=== PATIENT | female | born 1985 | race Caucasian/White ===

== ENCOUNTER → 2021-01-03 02:17 | Outpatient (CLI) | payer BC, MEDICAID, SELFPAY ==
[2021-01-03 19:12] LABS: SARS-CoV-2 RNA PCR Negative
== END ==
PROVIDERS: PCP Nurse Practitioner Family; Visit Provider Internal Medicine Gastroenterology
DX: Z01.812 Encounter for preprocedural laboratory examination (principal); Z20.822 Contact with and (suspected) exposure to COVID-19
CPT/HCPCS: C9803; U0003; U0005

== ENCOUNTER 2021-01-06 02:16 | Day surgery (SDC) | payer BC, MEDICAID, SELFPAY ==
[2020-12-25 14:07] VITALS: BMI 68.8
[2021-01-06 12:26] VITALS: BP 140/74; PULSE 97; RESP 26; TEMP 36.6; O2SAT 98; BMI 70.5
[2021-01-06 12:26] LABS: Glucose Point of Care 114 (65-105)
--- NOTE | 2021-01-06 12:31 | WPDANESEPPF ---
Anes - Initial Pre Proc Eval Procedure: Operation Date: 01/06/21 13:30 Proposed Procedures p Esophagogastroduodenoscopy & Colonoscopy - Devan Roman MD Date/Time: 01/06/21 12:31 Surgeon: Devan Roman MD Pre Op Diagnosis: abd pain, diarrhea, melena Patient Data Age: 35 Gender: F Height: 5 ft 4 in Weight: 186.5 kg Last Vital Signs Temp 36.6 C 01/06/21 12:26 Pulse 97 01/06/21 12:26 Resp 26 H 01/06/21 12:26 BP 140/74 01/06/21 12:26 Pulse Ox 98 01/06/21 12:26 Allergies Allergy/AdvReac Type Severity Reaction Status Date / Time metformin Allergy Mild Diarrhea Verified 01/06/21 12:22 venom-wasp Allergy Mild unknown Verified 01/06/21 12:22 terbutaline Allergy Unknown Hyperactive Verified 01/06/21 12:22 haloperidol [From Haldol] Allergy Difficulty Verified 01/06/21 12:22 Breathing Home Medications Medication Instructions Recorded Confirmed Type albuterol sulfate 90 mcg/actuation 1 inh INHALATION Q4H PRN 10/29/20 12/25/20 History aerosol inhaler blood sugar diagnostic #10 ea 10/29/20 12/25/20 History dicyclomine 20 mg tablet 20 mg PO BID 10/29/20 12/25/20 History glimepiride 4 mg tablet 4 mg PO BID 10/29/20 12/25/20 History hydrochlorothiazide 25 mg tablet 25 mg PO DAILY 10/29/20 12/25/20 History ibuprofen 200 mg capsule 600 mg PO Q6H PRN 10/29/20 12/25/20 History lidocaine HCl 4 % topical cream 1 applic TOPICAL BID 10/29/20 12/25/20 History pantoprazole 40 mg tablet,delayed 40 mg PO QAM 10/29/20 12/25/20 History release baclofen 10 mg tablet 10 mg PO TID tablet 11/08/20 12/25/20 History losartan 50 mg tablet 50 mg PO BID 11/08/20 12/25/20 History liraglutide 1.2 mg SUBCUT DAILY 12/25/20 12/25/20 History Laboratory Tests 01/06/21 12:24 POC Capillary Glucose 114 mg/dl H mg/dl (65-105) Patient hx anesthesia problems: none Family hx anesthesia problems: none PMFSH Past Medical History Medical History Anemia Anxiety Asthma Blood clot in vein Blood in stool Diabetes 1.5, managed as type 2 Diarrhea Gallbladder & bile duct stone with obstruction Gallstones GERD (gastroesophageal reflux disease) High blood pressure Infection of caesarean section or perineal wound Morbid obesity Nausea Rectal pain Tobacco abuse Social History Social History Smoking packs per day: 1.5 Smoking cigarettes per day: 30.0 Years smoked: 5 Smoking pack-years: 7.50 Smoking status: Current every day smoker Tobacco type: cigarettes Alcohol intake: never Substance use: never Substance use type: does not use Living arrangements: with family Gender identity (if verbalized by the patient): Female Spiritual care concerns: No Anes - Eval Final PreProcedure Day of Procedure 01/06/21 12:31 Patient weight: super morbidly obese Heart: regular rate and rhythm Lungs: decreased breath sounds Airway: Mallampati scale class II Neurological: alert and oriented Last oral intake: >/= 8 hours ASA classification: IV Emergent: no Anesthetic plan: proceed Anesthesia type and monitoring: general GIVS and standard monitoring Informed Consent: The patient's anesthetic plan and its attendant risks and benefits were discussed with the patient/family/POA. Questions were solicited and answers provided to the satisfaction of the patient/family/POA.
[2021-01-06] MEDS: LACTATED RINGERS 1,000 ML 150 ML IV CONT (12:42)
--- NOTE | 2021-01-06 12:43 | PM.HPGS ---
History of Present Illness History of Present Illness Consent: Risks, benefits, and alternatives have been discussed and questions answered. Patient agrees to proceed with procedure. Chief complaint: abd pain, diarrhea, melena Narrative: Gwen Lawson is a 35 year old female morbidly obese, DM with rectal pain, nausea and also loose stool. Review of Systems Constitutional: Constitutional: Denies headache(s) and Denies weakness Eyes: Eyes: Denies blurry vision ENT: Reports Normal hearing present, Denies headache(s) and Denies neck pain Cardiovascular: Cardiovascular: Denies chest pain and Denies dyspnea Respiratory: Respiratory: Denies dyspnea Gastrointestinal: Gastrointestinal: Reports no additional gastrointestinal complaints Genitourinary: Genitourinary: Denies dysuria Musculoskeletal: Musculoskeletal: Denies neck pain Integumentary/Breasts: Skin/Breast: Denies dry skin Neurologic: Reports Normal hearing present, Denies headache(s) and Denies weakness Psychiatric: Psychiatric: Denies anxiety Endocrine: Endocrine: Denies change in body appearance Hematologic/Lymphatic: Hematologic/Lymphatic: Denies easy bleeding Allergic/Immunologic: Allergic/Immunologic: Denies urticaria PMFSH Past Medical History Medical History Anemia Anxiety Asthma Blood clot in vein Blood in stool Diabetes 1.5, managed as type 2 Diarrhea Gallbladder & bile duct stone with obstruction Gallstones GERD (gastroesophageal reflux disease) High blood pressure Infection of caesarean section or perineal wound Morbid obesity Nausea Rectal pain Tobacco abuse Social History Social History Smoking packs per day: 1.5 Smoking cigarettes per day: 30.0 Years smoked: 5 Smoking pack-years: 7.50 Smoking status: Current every day smoker Tobacco type: cigarettes Alcohol intake: never Substance use: never Substance use type: does not use Living arrangements: with family Gender identity (if verbalized by the patient): Female Spiritual care concerns: No Meds Home Medications and Allergies Home Medications Medication Instructions Recorded Confirmed Type albuterol sulfate 90 mcg/actuation 1 inh INHALATION Q4H PRN 10/29/20 12/25/20 History aerosol inhaler blood sugar diagnostic #10 ea 10/29/20 12/25/20 History dicyclomine 20 mg tablet 20 mg PO BID 10/29/20 12/25/20 History glimepiride 4 mg tablet 4 mg PO BID 10/29/20 12/25/20 History hydrochlorothiazide 25 mg tablet 25 mg PO DAILY 10/29/20 12/25/20 History ibuprofen 200 mg capsule 600 mg PO Q6H PRN 10/29/20 12/25/20 History lidocaine HCl 4 % topical cream 1 applic TOPICAL BID 10/29/20 12/25/20 History pantoprazole 40 mg tablet,delayed 40 mg PO QAM 10/29/20 12/25/20 History release baclofen 10 mg tablet 10 mg PO TID tablet 11/08/20 12/25/20 History losartan 50 mg tablet 50 mg PO BID 11/08/20 12/25/20 History liraglutide 1.2 mg SUBCUT DAILY 12/25/20 12/25/20 History Allergies Allergy/AdvReac Type Severity Reaction Status Date / Time metformin Allergy Mild Diarrhea Verified 01/06/21 12:22 venom-wasp Allergy Mild unknown Verified 01/06/21 12:22 terbutaline Allergy Unknown Hyperactive Verified 01/06/21 12:22 haloperidol [From Haldol] Allergy Difficulty Verified 01/06/21 12:22 Breathing Vital Signs Vital Signs - 24 hr 01/06/21 12:26 Temperature 97.9 F Pulse Rate 97 Respiratory Rate 26 H Blood Pressure 140/74 Pulse Oximetry 98 Exam Const: General: comfortable and no acute distress Nutritional Appearance: obese HENMT: General nose exam: Normal nares present Eyes: General: appearance normal, both eyes and all related structures Neck: Neck: no JVD Resp: Auscultation: clear to auscultation bilaterally Cardio: Rate: regular rate Rhythm: regular rhythm GI: Inspection: non-distended GI Palp: Yes Soft to palpation
[2021-01-06 13:18] VITALS: BP 111/53; PULSE 90; RESP 22; O2SAT 96
[2021-01-06 13:28] VITALS: BP 131/89; PULSE 89; RESP 18; O2SAT 99
[2021-01-06 13:38] VITALS: BP 145/90; PULSE 87; RESP 18; O2SAT 100
[2021-01-06 13:44] LABS: Glucose Point of Care 94 (65-105)
[2021-01-06 13:48] VITALS: BP 134/84; PULSE 88; RESP 17; O2SAT 98
--- NOTE | 2021-01-06 14:08 | SUR.PHASEII ---
Pt complains of rectal pain. New order recieved from Dr. Up for a suppository. Pt refused suppository states she has tried this several times with no relief. Pt believed she was going to have treatment for the hemmorhoids during the colonoscopy. Dr. Up in to speak to the pt at this time.
--- NOTE | 2021-01-06 14:20 | SUR.PHASEII ---
No new orders recieved from Dr. Up. Dr. Up states he will set up hemmorhoid treatment for the pt.
--- NOTE | 2021-01-06 14:52 | SUR.PHASEII ---
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
== END 2021-01-06 14:51 | disposition home or self-care (01) ==
PROVIDERS: PCP Nurse Practitioner Family; Visit Provider Internal Medicine Gastroenterology
PROC: 0DJ08ZZ Inspection of Upper Intestinal Tract, Via Natural or Artificial Opening Endoscopic (ICD-10-PCS; CPT 43235; principal; 2021-01-06 13:30)
DX: R19.7 Diarrhea, unspecified (principal); K62.89 Other specified diseases of anus and rectum; K64.8 Other hemorrhoids; K29.50 Unspecified chronic gastritis without bleeding; K52.89 Other specified noninfective gastroenteritis and colitis; R11.0 Nausea; Z79.51 Long term (current) use of inhaled steroids; D64.9 Anemia, unspecified; F41.8 Other specified anxiety disorders; J45.909 Unspecified asthma, uncomplicated; F17.210 Nicotine dependence, cigarettes, uncomplicated; E66.01 Morbid (severe) obesity due to excess calories; Z68.45 Body mass index [BMI] 70 or greater, adult; R03.0 Elevated blood-pressure reading, without diagnosis of hypertension; E13.8 Other specified diabetes mellitus with unspecified complications; Z87.19 Personal history of other diseases of the digestive system
CPT/HCPCS: 45380; 43239; 82948; 88305; J2001; J2704; J7120

== ENCOUNTER 2021-02-04 00:28 | Day surgery (SDC) | payer BC, MEDICAID, SELFPAY ==
[2021-01-31 11:14] VITALS: BMI 68.8
[2021-02-04 11:10] VITALS: BP 150/61; PULSE 86; RESP 23; TEMP 36.7; O2SAT 98; BMI 72.2
--- NOTE | 2021-02-04 11:38 | PM.PROC ---
Procedure Note - Detailed Date of procedure: 02/04/21 Pre-op diagnosis: hemorrhoids Post-op diagnosis: same Procedure performed: infrared coagulation (IRC) Description of procedure: after she signed consent and time-out, patient was placed in left lateral position, then I performed rectal exam- no fissures, no lesions, no bleeding. Then introduced anoscope, noted grade II internal hemorroids, then applied IRC probe 1.5 seconds each time x4. Patient tolerated procedure Anesthesia: none Surgeon: Devan Roman MD Findings: - patient says that insurance did not approve hydrocortisone supp or budesonide (had colonoscopy with random colon bx that showed possible colitis), she also says that tried questran and did not work
[2021-02-04 11:40] VITALS: BP 162/68; PULSE 96; RESP 26; O2SAT 99
--- NOTE | 2021-02-04 12:20 | WPDHPUPDATE1 ---
History and Physical Update Update Date/Time: 02/04/21 12:20 History and Physical has been reviewed, including an updated exam of the patient. There are NO changes in the patient's condition. Risks, benefits, and alternatives have been discussed and questions answered. Patient agrees to proceed with procedure.
== END 2021-02-04 11:41 | disposition home or self-care (01) ==
PROVIDERS: PCP Nurse Practitioner Family; Visit Provider Internal Medicine Gastroenterology
PROC: (CPT 46930; principal; 2021-02-04 11:30)
DX: K64.1 Second degree hemorrhoids (principal); J45.909 Unspecified asthma, uncomplicated; E13.9 Other specified diabetes mellitus without complications; K21.9 Gastro-esophageal reflux disease without esophagitis; I10 Essential (primary) hypertension; E66.01 Morbid (severe) obesity due to excess calories; Z68.45 Body mass index [BMI] 70 or greater, adult
CPT/HCPCS: 46930; J7120

== ENCOUNTER 2023-10-11 17:03 | Emergency (ER) | payer OTHER, SELFPAY ==
--- NOTE | 2023-10-11 17:15 | ED.URI ---
HPI - URI/Sore Throat General Chief Complaint: Upper Respiratory Infection Stated Complaint: nausea/dizzy/fatigue Source: patient, RN notes reviewed and old records reviewed Mode of arrival: ambulatory Limitations: no limitations History of Present Illness HPI Narrative: 38-year-old female patient [facility] complaint Nausea, vomiting and dizziness for 1 week. patient states is taking Zofran 3 times a day with no relief. Patient states he has vomited 4 times daily for 1 week. Patient also states has been on antibiotic for a foot infection for 18 days. Patient is diabetic. Discussed limitations of urgent care with patient, patient states she does not want to go to the emergency room that she wants know if she has flu or COVID. Related Data Home Medications Medication Instructions Recorded Confirmed albuterol sulfate 90 mcg/actuation 1 inh inhalation Q4H PRN Shortness 10/29/20 08/14/21 aerosol inhaler (Ventolin HFA) Of Breath blood sugar diagnostic (Blood #10 ea 10/29/20 08/14/21 Glucose Test strips) dicyclomine 20 mg tablet 20 mg PO BID 10/29/20 08/14/21 glimepiride 4 mg tablet 4 mg PO BID 10/29/20 08/14/21 hydrochlorothiazide 25 mg tablet 25 mg PO DAILY 10/29/20 08/14/21 baclofen 10 mg tablet 10 mg PO TID 11/08/20 08/14/21 atenolol 25 mg tablet mg 10/11/23 atorvastatin 10 mg tablet mg 10/11/23 buspirone 7.5 mg tablet mg 10/11/23 cephalexin 500 mg capsule mg 10/11/23 cholestyramine (with sugar) 4 gram ea 10/11/23 powder for susp in a packet dulaglutide 0.75 mg/0.5 mL mg subcut 10/11/23 [facility] escitalopram oxalate 5 mg tablet mg 10/11/23 famotidine 40 mg tablet mg 10/11/23 hydrocortisone 2.5 % topical cream 10/11/23 with perineal applicator insulin glargine 100 unit/mL (3 unit subcut 10/11/23 mL) subcutaneous pen (Lantus Solostar U-100 Insulin) insulin lispro 100 unit/mL subcut 10/11/23 subcutaneous pen (Humalog KwikPen (U-100) Insulin) losartan 50 mg tablet mg 10/11/23 ondansetron HCl 8 mg tablet mg 10/11/23 sennosides 8.6 mg-docusate sodium PO 10/11/23 50 mg tablet (Senexon-S) trazodone 150 mg tablet mg 10/11/23 varenicline 1 mg tablet mg 10/11/23 Allergies Allergy/AdvReac Type Severity Reaction Status Date / Time metformin Allergy Mild Diarrhea Verified 11/25/21 12:38 venom-wasp Allergy Mild unknown Verified 11/25/21 12:38 terbutaline Allergy Unknown Hyperactive Verified 11/25/21 12:38 haloperidol [From Haldol] Allergy Difficulty Verified 11/25/21 12:38 Breathing Review of Systems Constitutional: Constitutional: Reports no additional constitutional complaints, Denies body ache(s), Denies chills, Denies fatigue, Denies fever(s) and Denies headache(s) Eyes: Eyes: Reports no additional eye complaints and Denies blurry vision ENT: Reports system reviewed and no additional complaints, except as documented, Denies vertigo, Reports dizziness, Denies ear discharge, Denies otalgia, Denies facial pain, Denies headache(s), Denies nasal congestion, Denies nasal discharge, Denies sinus pain, Denies sinus pressure and Denies sore throat Cardiovascular: Cardiovascular: Reports no additional cardiovascular complaints, Denies chest pain, Denies chest pain at rest, Denies rapid heart rate and Denies dyspnea Respiratory: Respiratory: Reports no additional respiratory complaints, Denies chest congestion, Denies cough, Denies pain on inspiration, Denies pain with cough and Denies dyspnea Gastrointestinal: Gastrointestinal: Denies abdominal pain, Denies diarrhea, Reports nausea and Reports vomiting Integumentary/Breasts: Skin/Breast: Denies rash Neurologic: Reports system reviewed and no additional complaints, except as documented, Denies vertigo, Denies dizziness and Denies headache(s) Endocrine: Endocrine: Denies fatigue PMFSH Past Medical History Medical History Anemia A
[2023-10-11 17:18] VITALS: BP 141/76; PULSE 77; RESP 16; TEMP 36.3; O2SAT 100
[2023-10-11 17:36] LABS: Glucose Point of Care 201 mg/dl (65-105)
== END 2023-10-11 17:57 | disposition home or self-care (01) ==
PROVIDERS: Emergency Provider Registered Nurse; PCP Nurse Practitioner Family
DX: R42 Dizziness and giddiness (principal); R11.2 Nausea with vomiting, unspecified; Z20.822 Contact with and (suspected) exposure to COVID-19; F17.210 Nicotine dependence, cigarettes, uncomplicated; J45.909 Unspecified asthma, uncomplicated; E13.8 Other specified diabetes mellitus with unspecified complications; K21.9 Gastro-esophageal reflux disease without esophagitis; E66.01 Morbid (severe) obesity due to excess calories
CPT/HCPCS: 82948; 87426; 87804; 99213; G0463

== ENCOUNTER 2024-01-06 08:22 | Emergency (ER) | payer OTHER, SELFPAY ==
--- NOTE | ~2024-01-06 | XR_ITS ---
EXAMINATION: XR chest 2V 01/06/2024 09:04 INDICATION: Severe chest pain PROCEDURE: 2 view chest COMPARISON: 06/26/2015 FINDINGS: The lungs are clear. Mild cardiomegaly.. There are no pleural effusions. There is no pneu mothorax suspected. IMPRESSION: 1: NO ACUTE CARDIOPULMONARY DISEASE. Reviewed, dictated and finalized at location B.
--- NOTE | 2024-01-06 08:24 | ECG_ITS ---
SEE SCANNED COPY FOR CONFIRMED REPORT. MTDD
[2024-01-06 08:26] VITALS: BP 129/66; PULSE 94; RESP 97; TEMP 36.4; O2SAT 97
[2024-01-06 09:21] LABS: Basophils Percent Auto 0.4 % (0.2-1.2); Eosinophils Absolute Auto 0.1 K/mm3 (0-0.3); Eosinophils Percent Auto 1.6 % (0-4.4); Hematocrit 37.5 % (37.0-47.0); Hemoglobin 12.1 g/dL (12.0-15.0); Immature Granulocyte Absolute 0.02 K/mm3 (0.00-0.031); Immature Granulocyte Percent A 0.3 % (0-0.5); Lymphocytes Absolute Auto 1.96 K/mm3 (0.9-3.2); Lymphocytes Percent Auto 25.8 % (18.3-44.2); Mean Corpuscular HGB Conc 32.3 g/dl (32-36); Mean Corpuscular Hemoglobin 27.6 pg (26-34); Mean Corpuscular Volume 85.6 fl (80-100); Mean Platelet Volume 8.6 fl (7.4-10.4); Monocytes Absolute Auto 0.4 K/mm3 (0.1-0.6); Neutrophils Absolute Auto 5.1 K/mm3 (1.3-6.7); Neutrophils Percent Auto 66.9 % (45.5-73.1); Platelet Count Result 284 k/mm3 (150-375); Red Blood Count 4.38 M/mm3 (4.2-5.4); Red Cell Distribution Width 13.7 % (11.5-14.5); White Blood Count 7.6 K/mm3 (4.5-10.0)
[2024-01-06 09:32] LABS: Prothrombin Time 13.7 Seconds (11.1-14.7)
[2024-01-06 09:33] LABS: Alanine Aminotransferase 12 U/L (6-35); Albumin Level 4.1 g/dL (3.5-5.1); Alkaline Phosphatase 78 U/L (38-126); Anion Gap 8 mmol/L (4-12); Aspartate Amino Transferase 13 U/L (14-36); Bilirubin,Total 0.5 mg/dL (0.2-1.3); Blood Urea Nitrogen 11 mg/dL (7-17); Calcium 9.2 mg/dL (8.4-10.2); Carbon Dioxide 25 mmol/L (22-30); Chloride 103 mmol/L (98-107); Estimated CRCL calculation 228 ml/min; Estimated Glomerular Filt Rate > 60; Glucose 166 mg/dL (65-110); Lipase 27 U/L (23-300); Partial Thromboplastin Time 29.4 Seconds (22.3-36.8); Potassium 4.1 mmol/L (3.4-5.0); Sodium 136 mmol/L (137-145)
[2024-01-06 09:46] LABS: Troponin I < 0.012 ng/mL (0.000-0.034)
--- NOTE | 2024-01-06 09:49 | ED.CHESTPAIN ---
HPI - Chest Pain General Chief Complaint: Chest Pain <Jose David Obrien APRN - Last Filed: 01/06/24 13:26> Stated Complaint: chest pain X4 days <Jose David Obrien APRN - Last Filed: 01/06/24 13:26> Time Seen by Provider: 01/06/24 09:03 <Jose David Obrien APRN - Last Filed: 01/06/24 13:26> Source: patient <Jose David Obrien APRN - Last Filed: 01/06/24 13:26> Mode of arrival: ambulatory <Jose David Obrien APRN - Last Filed: 01/06/24 13:26> Limitations: no limitations <Jose David Obrien APRN - Last Filed: 01/06/24 13:26> History of Present Illness HPI narrative: Gwen is a 38-year-old female patient presenting to the ER today with complaints of a 4 day history of midsternal chest pain that is radiating into the right ribs and into her spine. She reports that this is a burning sensation. Rates her pain currently a 7.5/10. States she does have associated shortness of breath at times. Pain is worse with movement. History of with Parkinson's white, GERD, asthma, diabetes, anxiety, anemia, and hypertension. She is a former smoker-a your history with 2 packs per day. Alcohol is rare. She denies any recreational drug use. Denies any history of cardiac catheterization or cardiac stents. Was given 2 nitros-1 while at work by her co-worker and then 1 by EMS and she reports that this up for pain. Also was given 4 baby aspirins via EMS. <Jose David Obrien APRN - Last Filed: 01/06/24 13:26> Related Data Home Medications: Home Medications Medication Instructions Recorded Confirmed albuterol sulfate 90 mcg/actuation 1 inh inhalation Q4H PRN Shortness 10/29/20 08/14/21 aerosol inhaler (Ventolin HFA) Of Breath blood sugar diagnostic (Blood #10 ea 10/29/20 08/14/21 Glucose Test strips) dicyclomine 20 mg tablet 20 mg PO BID 10/29/20 08/14/21 glimepiride 4 mg tablet 4 mg PO BID 10/29/20 08/14/21 hydrochlorothiazide 25 mg tablet 25 mg PO DAILY 10/29/20 08/14/21 baclofen 10 mg tablet 10 mg PO TID 11/08/20 08/14/21 atenolol 25 mg tablet mg 10/11/23 atorvastatin 10 mg tablet mg 10/11/23 buspirone 7.5 mg tablet mg 10/11/23 cephalexin 500 mg capsule mg 10/11/23 cholestyramine (with sugar) 4 gram ea 10/11/23 powder for susp in a packet dulaglutide 0.75 mg/0.5 mL mg subcut 10/11/23 [facility] escitalopram oxalate 5 mg tablet mg 10/11/23 famotidine 40 mg tablet mg 10/11/23 hydrocortisone 2.5 % topical cream 10/11/23 with perineal applicator insulin glargine 100 unit/mL (3 unit subcut 10/11/23 mL) subcutaneous pen (Lantus Solostar U-100 Insulin) insulin lispro 100 unit/mL subcut 10/11/23 subcutaneous pen (Humalog KwikPen (U-100) Insulin) losartan 50 mg tablet mg 10/11/23 ondansetron HCl 8 mg tablet mg 10/11/23 sennosides 8.6 mg-docusate sodium PO 10/11/23 50 mg tablet (Senexon-S) trazodone 150 mg tablet mg 10/11/23 varenicline 1 mg tablet mg 10/11/23 <Jose David Obrien APRN - Last Filed: 01/06/24 13:26> Allergies/Adverse Reactions: Allergies Allergy/AdvReac Type Severity Reaction Status Date / Time metformin Allergy Mild Diarrhea Verified 01/06/24 08:22 venom-wasp Allergy Mild unknown Verified 01/06/24 08:22 terbutaline Allergy Unknown Hyperactive Verified 01/06/24 08:22 haloperidol [From Haldol] Allergy Difficulty Verified 01/06/24 08:22 Breathing <Jose David Obrien APRN - Last Filed: 01/06/24 13:26> Review of Systems Review of Systems: Pertinent positives per HPI. Patient denies any fever, chills, rash, headache, visual changes, dizziness, cough, runny nose, sore throat, palpitations, nausea, vomiting, diarrhea, constipation, abdominal pain, or any urinary issues. <Jose David Obrien APRN - Last Filed: 01/06/24 13:26> [facility] Past Medical History Medical History: Medical History Anemia Anxiety Asthma Blood clot i
[2024-01-06] MEDS: ONDANSETRON INJ 4 MG/2 ML VIAL IV PUSH (10:14)
[2024-01-06] MEDS: MORPHINE SULFATE (*CRX) 4 MG/ML INJ IV PUSH (10:14)
[2024-01-06 10:34] LABS: D Dimer < 0.27 ug/mL (<0.48)
[2024-01-06 10:37] LABS: NT Pro B Type Natriuretic Pept 25 pg/mL (19.9-100)
--- NOTE | 2024-01-06 12:06 | ECG_ITS ---
SEE SCANNED COPY FOR CONFIRMED REPORT MTDD
[2024-01-06 12:20] VITALS: BP 123/83; PULSE 74; RESP 16; O2SAT 98
[2024-01-06 12:38] LABS: Troponin I < 0.012 ng/mL (0.000-0.034)
[2024-01-06] MEDS: KETOROLAC 30 MG/ML VIAL (*BKC) IV PUSH (13:12)
== END 2024-01-06 13:16 | disposition home or self-care (01) ==
PROVIDERS: Emergency Medicine; Emergency Provider Nurse Practitioner Family; PCP Nurse Practitioner Family
DX: R07.89 Other chest pain (principal); K21.9 Gastro-esophageal reflux disease without esophagitis; J45.909 Unspecified asthma, uncomplicated; G20.C Parkinsonism, unspecified; E11.9 Type 2 diabetes mellitus without complications; F41.9 Anxiety disorder, unspecified; I10 Essential (primary) hypertension; Z79.4 Long term (current) use of insulin; E66.01 Morbid (severe) obesity due to excess calories; Z68.45 Body mass index [BMI] 70 or greater, adult; F17.210 Nicotine dependence, cigarettes, uncomplicated
CPT/HCPCS: 36415; 71046; 80053; 83690; 83880; 84484; 85025; 85380; 85610; 85730; 93005; 96374; 96375; 99284; J1885; J2270; J2405

== ENCOUNTER 2024-05-02 09:57 | Emergency (ER) | payer OTHER, SELFPAY ==
[2024-05-02 10:11] VITALS: BP 113/65; PULSE 81; RESP 20; TEMP 37.1; O2SAT 98
--- NOTE | 2024-05-02 11:15 | ED.URI ---
HPI - URI/Sore Throat General Chief Complaint: Upper Respiratory Infection Stated Complaint: Congestion/Shortness of Breath History of Present Illness HPI Narrative: patient is a 39-year-old female, [facility] with multiple complaints, including changes in urinary frequency, noting that she typically does have frequent urination however she does not often have difficulty making it to the bathroom without voiding before she arrives. This has been going on for the past 2 days. She also reports having right flank pain with skin sensitivity in that area. She has had fevers and chills and states that since arrival here she has vomited once. She also states that she has had diarrhea for a long time . 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 She does state that she feels winded when she gets up and ambulates however that is not unusual for her. She has no rhinorrhea or cough. She has no chest pain, she denies orthopnea, she has no calf pain or swelling. She did take home covid test last night and was negative. She denies any additional associated symptoms, she has not attempted any modifying factors. Related Data Home Medications Medication Instructions Recorded Confirmed albuterol sulfate 90 mcg/actuation 1 inh inhalation Q4H PRN Shortness 10/29/20 08/14/21 aerosol inhaler (Ventolin HFA) Of Breath blood sugar diagnostic (Blood #10 ea 10/29/20 08/14/21 Glucose Test strips) dicyclomine 20 mg tablet 20 mg PO BID 10/29/20 08/14/21 glimepiride 4 mg tablet 4 mg PO BID 10/29/20 08/14/21 hydrochlorothiazide 25 mg tablet 25 mg PO DAILY 10/29/20 08/14/21 baclofen 10 mg tablet 10 mg PO TID 11/08/20 08/14/21 atenolol 25 mg tablet mg 10/11/23 atorvastatin 10 mg tablet mg 10/11/23 buspirone 7.5 mg tablet mg 10/11/23 cholestyramine (with sugar) 4 gram ea 10/11/23 powder for susp in a packet dulaglutide 0.75 mg/0.5 mL mg subcut 10/11/23 [facility] escitalopram oxalate 5 mg tablet mg 10/11/23 famotidine 40 mg tablet mg 10/11/23 hydrocortisone 2.5 % topical cream 10/11/23 with perineal applicator insulin glargine 100 unit/mL (3 unit subcut 10/11/23 mL) subcutaneous pen (Lantus Solostar U-100 Insulin) insulin lispro 100 unit/mL subcut 10/11/23 subcutaneous pen (Humalog KwikPen (U-100) Insulin) losartan 50 mg tablet mg 10/11/23 ondansetron HCl 8 mg tablet mg 10/11/23 sennosides 8.6 mg-docusate sodium PO 10/11/23 50 mg tablet (Senexon-S) trazodone 150 mg tablet mg 10/11/23 varenicline 1 mg tablet mg 10/11/23 baclofen 10 mg tablet mg 05/02/24 ipratropium 0.5 mg-albuterol 3 mg ml inhalation 05/02/24 (2.5 mg base)/3 mL nebulization soln irbesartan 150 mg tablet mg 05/02/24 Allergies Allergy/AdvReac Type Severity Reaction Status Date / Time metformin Allergy Mild Diarrhea Verified 01/06/24 08:22 venom-wasp Allergy Mild unknown Verified 01/06/24 08:22 terbutaline Allergy Unknown Hyperactive Verified 01/06/24 08:22 haloperidol [From Haldol] Allergy Difficulty Verified 01/06/24 08:22 Breathing Review of Systems Constitutional: Comments: Refer to HPI Respiratory: Comments: refer to HPI Gastrointestinal: Comments: refer HPI Musculoskeletal: Comments: refer to HPI Integumentary/Breasts: Comments: refer to HPI [facility] Past Medical History Medical History (Updated 05/02/24 @ 11:34 by ISAIAH Dodd) Anemia Anxiety Asthma Blood clot in vein Blood in stool Diabetes 1.5, managed as type 2 Diarrhea Gallbladder & bile duct stone with obstruction Gallstones GERD (gastroesophageal reflux disease) High blood pressure Infection of caesarean section or perineal wound Morbid obesity Nausea Rectal pain Tobacco abuse Social History Social History (Reviewed 01/06/24 @ 10:11 by Jose David Obrien APRN
--- NOTE | 2024-05-02 11:22 | PC.NURSE ---
1118 in br to obtain ua spec.
[2024-05-02 11:28] LABS: EDUAAPPEAR Cloudy; EDUABILI Negative; EDUABLOOD Trace; EDUACOLOR1 Light/Pale; EDUAGLUCOSE 2+; EDUAKETONE Negative; EDUALEUKO Negative; EDUANITRATE Negative; EDUAPROTEIN Negative; EDUASPGRAVITY 1.015; EDUAUROBILI 0.2
== END 2024-05-02 11:36 | disposition home or self-care (01) ==
PROVIDERS: Emergency Provider Nurse Practitioner Family; PCP Nurse Practitioner Family
DX: R07.89 Other chest pain (principal); F17.210 Nicotine dependence, cigarettes, uncomplicated; J45.909 Unspecified asthma, uncomplicated; E13.9 Other specified diabetes mellitus without complications; Z79.84 Long term (current) use of oral hypoglycemic drugs; K21.9 Gastro-esophageal reflux disease without esophagitis; I10 Essential (primary) hypertension; E66.01 Morbid (severe) obesity due to excess calories; Z68.45 Body mass index [BMI] 70 or greater, adult
CPT/HCPCS: 81003; 99212; G0463

== ENCOUNTER 2024-08-11 08:31 | Emergency (ER) | payer SELFPAY ==
--- NOTE | 2024-08-11 08:34 | ED.URI ---
HPI - URI/Sore Throat General Chief Complaint: Upper Respiratory Infection Stated Complaint: fever/nausea Time Seen by Provider: 08/11/24 08:56 Source: patient and RN notes reviewed Mode of arrival: ambulatory Limitations: no limitations History of Present Illness HPI Narrative: 39-year-old female with history of diabetes presents with concern for 3 day history of nasal congestion. Reports she had fever on day 1 of illness. Reports she had ear fullness started coughing today. MD elicited complaint: nasal congestion Related Data Home Medications Medication Instructions Recorded Confirmed albuterol sulfate 90 mcg/actuation 1 inh inhalation Q4H PRN Shortness 10/29/20 08/14/21 aerosol inhaler (Ventolin HFA) Of Breath blood sugar diagnostic (Blood #10 ea 10/29/20 08/14/21 Glucose Test strips) dicyclomine 20 mg tablet 20 mg PO BID 10/29/20 08/14/21 glimepiride 4 mg tablet 4 mg PO BID 10/29/20 08/14/21 hydrochlorothiazide 25 mg tablet 25 mg PO DAILY 10/29/20 08/14/21 baclofen 10 mg tablet 10 mg PO TID 11/08/20 08/14/21 atenolol 25 mg tablet mg 10/11/23 atorvastatin 10 mg tablet mg 10/11/23 buspirone 7.5 mg tablet mg 10/11/23 cholestyramine (with sugar) 4 gram ea 10/11/23 powder for susp in a packet dulaglutide 0.75 mg/0.5 mL mg subcut 10/11/23 subcutaneous pen injector (Trulicity) escitalopram oxalate 5 mg tablet mg 10/11/23 famotidine 40 mg tablet mg 10/11/23 hydrocortisone 2.5 % topical cream 10/11/23 with perineal applicator insulin glargine 100 unit/mL (3 unit subcut 10/11/23 mL) subcutaneous pen (Lantus Solostar U-100 Insulin) insulin lispro 100 unit/mL subcut 10/11/23 subcutaneous pen (Humalog KwikPen (U-100) Insulin) losartan 50 mg tablet mg 10/11/23 ondansetron HCl 8 mg tablet mg 10/11/23 sennosides 8.6 mg-docusate sodium PO 10/11/23 50 mg tablet (Senexon-S) trazodone 150 mg tablet mg 10/11/23 varenicline 1 mg tablet mg 10/11/23 baclofen 10 mg tablet mg 05/02/24 ipratropium 0.5 mg-albuterol 3 mg ml inhalation 05/02/24 (2.5 mg base)/3 mL nebulization soln irbesartan 150 mg tablet mg 05/02/24 Allergies Allergy/AdvReac Type Severity Reaction Status Date / Time metformin Allergy Mild Diarrhea Verified 01/06/24 08:22 venom-wasp Allergy Mild unknown Verified 01/06/24 08:22 terbutaline Allergy Unknown Hyperactive Verified 01/06/24 08:22 haloperidol [From Haldol] Allergy Difficulty Verified 01/06/24 08:22 Breathing Review of Systems Review of Systems: CONSTITUTIONAL: Reports malaise 1 episode of fever. EYES: Denies visual changes, redness, or discharge. ENT: Reports rhinorrhea, congestion, otalgia CARDIOVASCULAR: Denies chest pain, palpitations, or edema. RESPIRATORY: Reports occasional cough. Denies dyspnea. GASTROINTESTINAL: Denies abdominal pain, nausea, vomiting, diarrhea SKIN: Denies rash or itching. MUSCULOSKELETAL: Denies myalgia. NEUROLOGIC: Reports headache. All systems reviewed & are unremarkable except as noted in HPI and below PMFSH Past Medical History Medical History (Updated 08/11/24 @ 09:07 by Julisa Woods NP) Anemia Anxiety Asthma Blood clot in vein Blood in stool Diabetes 1.5, managed as type 2 Diarrhea Gallbladder & bile duct stone with obstruction Gallstones GERD (gastroesophageal reflux disease) High blood pressure Infection of caesarean section or perineal wound Morbid obesity Nausea Rectal pain Tobacco abuse Social History Social History Smoking packs per day: 1.5 Smoking cigarettes per day: 30.0 Years smoked: 5 Smoking pack-years: 7.50 Tobacco type: cigarettes Alcohol intake: never Substance use: never Substance use type: does not use Living arrangements: with family Occupation/Education: occupation Gender identity (if verbalized by the patient): Female Spiritual care concerns: No Comments At time of signature, agree with nursing past medical, surgical, social and family history. There is no relevant family history pertinent to the presenting complaint Exam Narrative: GENERAL: Well-appearing, well-nourished, and in no acute distress. HEAD: Normocephalic EYES: PERRLA, conjunctivae clear ENT: Nares clear. Mucous membranes moist. TM pearly jackson with dull light reflex bilaterally; no tragal tenderness. Oropharynx not erythematous without lesions. Tonsils not enlarged and without exudate, no drooling, no hoarseness, no trismus, uvula midline. NECK: Supple. No lymphadenopathy CHEST: Clear to auscultation, breath sounds equal. No wheezing, rhonchi, rales, or stridor. No respiratory distress, speaks in full sentences. HEART: Regular rate and rhythm. No murmur heard. SKIN: Warm, dry, no rash. NEURO: Alert and oriented x3. PSYCH: Normal mood and affect Course Course Emergency Course: Patient is aware of diagnosis, understands and agrees to treatment plan. Anticipatory guidance given. Patient agrees to follow-up as directed and is aware of reasons to seek care at the emergency department. Portions of this record may have been created with voice recognition software Level of Care: Express Care Visit Vital Signs Vital signs: Reviewed. MDM - URI/Sore Throat MDM Narrative Medical decision making narrative: Differential diagnosis considered: Sanchez virus, strep pharyngitis, allergic rhinitis, upper respiratory tract infection, sinusitis, rhinosinusitis, nasopharyngitis. viral pharyngitis, otitis media, otitis externa, pneumonia, bronchitis, viral cough syndrome, viral syndrome, and influenza. Exam findings show no acute concerns or changes; patient is non-toxic appearing and is in no distress. Patient is appropriate for outpatient treatment and follow-up. Lab Data Attestation: I reviewed the patient's lab results. Critical Care Time Critical Care Time Critical Care Time: No Discharge Plan Discharge Clinical Impression: Upper respiratory infection Patient Disposition: Home, Self-Care Condition: Stable Instructions: Upper Respiratory Infection (ED) Additional Instructions: Your rapid COVID and flu tests are negative Viral illness may last between 7-21 days; antibiotics do not cure viral illness and are NOT recommended at this time. Recommend antihistamine such as Benadryl at night time and Zyrtec or [place] during the day Also, recommend symptomatic treatment includes: rest, fluids, and increase humidity of the air at home. Recommend Acetaminophen as directed on the bottle to reduce fever, pain, headache. Avoid smoking/second-hand smoke. Please schedule a follow-up visit with your personal physician for further evaluation and treatment within 3-5days. Including recheck and discussion of your blood pressure. If your symptoms persist, change or worsen significantly before you can contact your personal physician then please, without delay, go to the emergency department for further evaluation. Prescriptions: New Coricidin HBP Cough and Cold 4-30 mg tablet 1 tablet PO Q6H PRN (Reason: cold symptoms) Qty: 20 0RF fluticasone propionate [Flonase Allergy Relief] 50 mcg/actuation spray,suspension 2 spray NASAL DAILY 14 Days Qty: 15.8 0RF Rx Instructions: administer into each nostril No Action ipratropium-albuterol 0.5 mg-3 mg(2.5 mg base)/3 mL solution for nebulization INHALATION baclofen 10 mg tablet irbesartan 150 mg tablet atorvastatin 10 mg tablet atenolol 25 mg tablet famotidine 40 mg tablet buspirone 7.5 mg tablet cholestyramine (with sugar) 4 gram powder in packet escitalopram oxalate 5 mg tablet losartan 50 mg tablet ondansetron HCl 8 mg tablet sennosides-docusate sodium [Senexon-S] 8.6-50 mg tablet PO hydrocortisone 2.5 % cream with perineal applicator trazodone 150 mg tablet insulin lispro [Humalog KwikPen Insulin] 100 unit/mL insulin pen SUBCUT varenicline 1 mg tablet insulin glargine [Lantus Solostar U-100 Insulin] 100 unit/mL (3 mL) insulin pen SUBCUT Trulicity 0.75 mg/0.5 mL pen injector SUBCUT (DME) Blood Glucose Test Strip See Rx Instructions .ROUTE .MEDSUPPLY Qty: 10 Rx Instructions: As directed dicyclomine 20 mg tablet 20 mg PO BID glimepiride 4 mg tablet 4 mg PO BID Rx Instructions: administer with breakfast hydrochlorothiazide 25 mg tablet 25 mg PO DAILY albuterol sulfate [Ventolin HFA] 90 mcg/actuation HFA aerosol inhaler 1 inh inhalation Q4H PRN (Reason: Shortness Of Breath) baclofen 10 mg tablet 10 mg PO TID lidocaine [RectiCare] 5 % cream 1 applic topical BID Qty: 30 0RF naproxen 500 mg tablet 500 mg PO BID PRN (Reason: pain) 7 Days Qty: 14 0RF Follow-up/Referrals: Paz,Nimco Bob APN [Primary Care Provider] - Stand Alone Forms: Work/School Release IP Time of Disposition: 09:09
[2024-08-11 08:36] VITALS: BP 169/75; PULSE 97; RESP 22; TEMP 36.2; O2SAT 98
[2024-08-11 09:01] LABS: EDCOVIDSCREEN Negative (Negative)
[2024-08-11 09:01] LABS: EDINFLUASCREEN Negative (Negative); EDINFLUBSCREEN Negative (Negative)
== END 2024-08-11 09:13 | disposition home or self-care (01) ==
PROVIDERS: Emergency Provider Nurse Practitioner; PCP Nurse Practitioner Family
DX: J06.9 Acute upper respiratory infection, unspecified (principal); Z20.822 Contact with and (suspected) exposure to COVID-19; F17.210 Nicotine dependence, cigarettes, uncomplicated; J45.909 Unspecified asthma, uncomplicated; E13.8 Other specified diabetes mellitus with unspecified complications; Z79.84 Long term (current) use of oral hypoglycemic drugs; I10 Essential (primary) hypertension; K21.9 Gastro-esophageal reflux disease without esophagitis; E66.01 Morbid (severe) obesity due to excess calories; Z86.2 Personal history of diseases of the blood and blood-forming organs and certain disorders involving the immune mechanism
CPT/HCPCS: 87426; 87804; 99213; G0463

== ENCOUNTER 2024-08-17 08:29 | Emergency (ER) | payer SELFPAY ==
--- NOTE | ~2024-08-17 | XR_ITS ---
EXAMINATION: XR chest 2V 08/17/2024 08:55 INDICATION: Chest pain, shortness of breath and dizziness PROCEDURE: PA and lateral views of the chest COMPARISON: 01/06/2024 FINDINGS: The lungs are clear. The cardiomediastinal silhouette is enlarged. There are no pleural e ffusions. There is no pneumothorax suspected. IMPRESSION: 1: NO ACUTE CARDIOPULMONARY DISEASE. Reviewed, dictated and finalized at location B. HIATRIC AIDE INSTRUCTOR
--- NOTE | 2024-08-17 08:30 | ECG_ITS ---
Test Date: 2024-08-17 08:41:36 Measurements Intervals [place] Rate: 80 P: 65 AR: 159 QRS: 17 QRSD: 98 T: 38 QT: 378 QTc: 437 Interpretive Statements SINUS RHYTHM POOR R WAVE PROGRESSION IN ANTERIOR PRECORDIAL LEADS No previous ECG available for comparison Electronically Signed On 08-17-2024 15:45:34 PRACTICE CLINICIAN by April Farley
[2024-08-17 08:35] VITALS: BP 122/73; PULSE 81; RESP 18; TEMP 36.3; O2SAT 97
[2024-08-17 09:06] VITALS: BP 122/73; PULSE 75; RESP 21; O2SAT 99
[2024-08-17 09:09] VITALS: BP 130/77; PULSE 76; RESP 17; O2SAT 99
[2024-08-17 09:13] LABS: Basophils Percent Auto 0.4 % (0.2-1.2); Eosinophils Absolute Auto 0.1 K/mm3 (0-0.3); Eosinophils Percent Auto 1.4 % (0-4.4); Hematocrit 38.8 % (37.0-47.0); Hemoglobin 12.7 g/dL (12.0-15.0); Immature Granulocyte Absolute 0.03 K/mm3 (0.00-0.031); Immature Granulocyte Percent A 0.4 % (0-0.5); Lymphocytes Absolute Auto 1.92 K/mm3 (0.9-3.2); Lymphocytes Percent Auto 24.8 % (18.3-44.2); Mean Corpuscular HGB Conc 32.7 g/dl (32-36); Mean Corpuscular Volume 85.5 fl (80-100); Mean Platelet Volume 8.9 fl (7.4-10.4); Monocytes Absolute Auto 0.3 K/mm3 (0.1-0.6); Neutrophils Absolute Auto 5.3 K/mm3 (1.3-6.7); Platelet Count Result 286 k/mm3 (150-375); Red Blood Count 4.54 M/mm3 (4.2-5.4); Red Cell Distribution Width 13.6 % (11.5-14.5); White Blood Count 7.7 K/mm3 (4.5-10.0)
[2024-08-17 09:24] LABS: Prothrombin Time 13.1 Seconds (11.1-14.7)
[2024-08-17 09:25] LABS: Partial Thromboplastin Time 28.6 Seconds (22.3-36.8)
[2024-08-17] MEDS: ONDANSETRON INJ 4 MG/2 ML VIAL IV PUSH (09:25)
[2024-08-17] MEDS: PANTOPRAZOLE SODIUM IV 40 MG VIAL IV PUSH (09:25)
[2024-08-17] MEDS: FAMOTIDINE 20 MG/2 ML VIAL IV PUSH (09:26)
[2024-08-17] MEDS: MAG HYDROX/AL HYDROX/SIMETH 30 ML UDC PO (09:26)
[2024-08-17 09:28] LABS: Alanine Aminotransferase 12 U/L (6-35); Albumin Level 3.8 g/dL (3.5-5.1); Alkaline Phosphatase 110 U/L (38-126); Anion Gap 6 mmol/L (4-12); Aspartate Amino Transferase 14 U/L (14-36); Bilirubin,Total 0.3 mg/dL (0.2-1.3); Blood Urea Nitrogen 7 mg/dL (7-17); Calcium 8.9 mg/dL (8.4-10.2); Carbon Dioxide 27 mmol/L (22-30); Chloride 100 mmol/L (98-107); Estimated CRCL calculation 228 ml/min; Estimated Glomerular Filt Rate > 60; Glucose 341 mg/dL (65-110); Lipase 31 U/L (23-300); Potassium 3.8 mmol/L (3.4-5.0); Sodium 133 mmol/L (137-145)
[2024-08-17 09:32] VITALS: BP 126/83; PULSE 78; RESP 17; O2SAT 98
--- NOTE | 2024-08-17 09:37 | ED_ITS ---
HPI - Chest Pain General Chief Complaint: Chest Pain Stated Complaint: CP Time Seen by Provider: 08/17/24 08:31 History of Present Illness HPI narrative: Patient with history of GERD for a long time but has been out of her medications due to insurance issues presents here with symptoms that feel like her GERD, describes epigastric pain that radiates to the back, with nausea. Related Data Home Medications ?Medication ?Instructions ?Recorded ?Confirmed ?Last Taken ?Type albuterol sulfate 90 mcg/actuation 1 inh inhalation Q4H PRN Shortness 10/29/20 08/14/21 02/03/21 History aerosol inhaler (Ventolin HFA) Of Breath blood sugar diagnostic (Blood #10 ea 10/29/20 08/14/21 02/03/21 History Glucose Test strips) dicyclomine 20 mg tablet 20 mg PO BID 10/29/20 08/14/21 02/03/21 History glimepiride 4 mg tablet 4 mg PO BID 10/29/20 08/14/21 02/04/21 08:00 History hydrochlorothiazide 25 mg tablet 25 mg PO DAILY 10/29/20 08/14/21 02/04/21 08:00 History baclofen 10 mg tablet 10 mg PO TID 11/08/20 08/14/21 02/03/21 History atenolol 25 mg tablet mg 10/11/23 Unknown History atorvastatin 10 mg tablet mg 10/11/23 Unknown History buspirone 7.5 mg tablet mg 10/11/23 Unknown History cholestyramine (with sugar) 4 gram ea 10/11/23 Unknown History powder for susp in a packet dulaglutide 0.75 mg/0.5 mL mg subcut 10/11/23 Unknown History subcutaneous pen injector (Trulicity) escitalopram oxalate 5 mg tablet mg 10/11/23 Unknown History famotidine 40 mg tablet mg 10/11/23 Unknown History hydrocortisone 2.5 % topical cream 10/11/23 Unknown History with perineal applicator insulin glargine 100 unit/mL (3 unit subcut 10/11/23 Unknown History mL) subcutaneous pen (Lantus Solostar U-100 Insulin) insulin lispro 100 unit/mL subcut 10/11/23 Unknown History subcutaneous pen (Humalog KwikPen (U-100) Insulin) losartan 50 mg tablet mg 10/11/23 Unknown History ondansetron HCl 8 mg tablet mg 10/11/23 Unknown History sennosides 8.6 mg-docusate sodium PO 10/11/23 Unknown History 50 mg tablet (Senexon-S) trazodone 150 mg tablet mg 10/11/23 Unknown History varenicline 1 mg tablet mg 10/11/23 Unknown History baclofen 10 mg tablet mg 05/02/24 Unknown History ipratropium 0.5 mg-albuterol 3 mg ml inhalation 05/02/24 Unknown History (2.5 mg base)/3 mL nebulization soln irbesartan 150 mg tablet mg 05/02/24 Unknown History Allergies Allergy/AdvReac Type Severity Reaction Status Date / Time metformin Allergy Mild Diarrhea Verified 08/17/24 10:52 venom-wasp Allergy Mild unknown Verified 08/17/24 10:52 terbutaline Allergy Unknown Hyperactive Verified 08/17/24 10:52 haloperidol (From Haldol) Allergy Difficulty Verified 08/17/24 10:52 Breathing Review of Systems 2 Review of Systems: All systems reviewed & are unremarkable except as noted in HPI and below PMFSH Past Medical History Medical History (Updated 08/17/24 @ 10:41 by Nicole Green MD) Morbid obesity Tobacco abuse Diabetes 1.5, managed as type 2 Nausea Blood in stool Rectal pain Diarrhea Gallbladder & bile duct stone with obstruction Gallstones Infection of caesarean section or perineal wound High blood pressure Blood clot in vein Asthma Anxiety Anemia GERD (gastroesophageal reflux disease) Social History Social History Smoking packs per day: 1.5 Smoking cigarettes per day: 30.0 Years smoked: 5 Smoking pack-years: 7.50 Tobacco type: cigarettes Alcohol intake: never Substance use: never Substance use type: does not use Living arrangements: with family Occupation/Education: occupation Gender identity (if verbalized by the patient): Female Spiritual care concerns: No Exam 2 Narrative: EXAMINATION OF ORGAN SYSTEMS/BODY AREAS: Constitutional: Vital signs per nursing GENERAL: appears slightly sad and anxious HEAD: Normal with no signs of head trauma. EYES: EOMI, conjunctiva normal ENT: Hearing grossly intact LUNGS: Nonlabored breathing. HEART: [Regular rate and rhythm], normal bilateral radial and DP pulses ABD: [Soft], [nontender to palpation] EXT: Normal range of motion SKIN: [No rashes or lesions.] NEURO: [Alert and oriented x 3. No gross focal sensory or strength deficits.] PSYCH: slightly anxious affect Course Vital Signs Vital signs: Vital Signs Temperature 97.4 F L 08/17/24 08:35 Pulse Rate 81 08/17/24 08:35 Respiratory Rate 18 08/17/24 08:35 Blood Pressure 122/73 08/17/24 08:35 Pulse Oximetry 97 08/17/24 08:35 Oxygen Delivery Room Air 08/17/24 08:35 Temperature 97.4 F L 08/17/24 08:35 Pulse Rate 83 08/17/24 12:24 Respiratory Rate 26 H 08/17/24 12:24 Blood Pressure 109/74 08/17/24 12:24 Pulse Oximetry 98 08/17/24 12:24 Oxygen Delivery Room Air 08/17/24 08:35 MDM - Chest Pain MDM Narrative Medical decision making narrative: ED COURSE AND MEDICAL DECISION MAKIN-year-old female presenting with chest/epigastric pain, feels like her reflux, has been out of her medications for quite a while. EKG done in triage negative for acute ischemic changes. Cardiac workup is initiated. EKG: Performed in triage and interpreted by me. Normal sinus rhythm. Rate 80. Normal axis. UT normal. QRS duration normal. QTc normal. No pathologic Q waves. No ST segment elevation or depression to suggest acute ischemia. HEART score is 0 with no acute ischemic changes on EKG and two negative troponins making ACS unlikely. Wells low risk with negative PERC making PE unlikely. Presentation not consistent with dissection or aneurysm without pulse deficits. CXR negative for mediastinal widening. No abdominal pain or signs of sepsis that would be concerning for esophageal perforation or mediastinitis. No cardiomegaly or JVD to suggest pericardial effusion/tamponade. GI medications administered. Glucose elevated however no gap and she does have a history of diabetes, she is given a L of fluids for this. EKG - 12-Lead: Performed at 1218. Interpreted by me. [Sinus rhythm]. Rate [75]. [Normal] axis. UT-interval [normal]. QRS duration [normal]. QTc [normal]. [No ST segment elevation or depression]. [T-wave normal]. Impression: No EKG evidence of acute ischemia or dysrhythmia. On repeat evaluation just prior to discharge, the patient is no acute distress. No emesis or new abdominal pain. She was given clear return instructions by myself in person as well as on discharge paperwork. Lab Data 08/17/24 09:07 08/17/24 09:07 Labs: Lab Results 08/17/24 08/17/24 Range/Units 09:07 12:09 WBC 7.7 (4.5-10.0) K/mm3 RBC 4.54 (4.2-5.4) M/mm3 Hgb 12.7 (12.0-15.0) g/dL Hct 38.8 (37.0-47.0) % MCV 85.5 (80-100) fl MCH 28.0 (26-34) pg MCHC 32.7 (32-36) g/dl RDW 13.6 (11.5-14.5) % Plt Count 286 (150-375) k/mm3 MPV 8.9 (7.4-10.4) fl Immature Gran % (Auto) 0.4 (0-0.5) % Neut % (Auto) 69.0 (45.5-73.1) % Lymph % (Auto) 24.8 (18.3-44.2) % Greer % (Auto) 4.0 (2.6-8.5) % Eos % (Auto) 1.4 (0-4.4) % Baso % (Auto) 0.4 (0.2-1.2) % Lymph # (Auto) 1.92 (0.9-3.2) K/mm3 Greer # (Auto) 0.3 (0.1-0.6) K/mm3 Eos # (Auto) 0.1 (0-0.3) K/mm3 Baso # (Auto) 0.0 (0.0-0.1) K/mm3 Abs Immat Gran (auto) 0.03 (0.00-0.031) K/mm3 Absolute Neuts (auto) 5.3 (1.3-6.7) K/mm3 Absolute Nucleated RBC 0.000 (0.0-0.012) K/mm3 Nucleated RBC % 0.0 (0.0-0.2) % PT 13.1 (11.1-14.7) Seconds INR 1.0 APTT 28.6 (22.3-36.8) Seconds Sodium 133 L (137-145) mmol/L Potassium 3.8 (3.4-5.0) mmol/L Chloride 100 (98-107) mmol/L Carbon Dioxide 27 (22-30) mmol/L Anion Gap 6 (4-12) mmol/L BUN 7 (7-17) mg/dL Creatinine 0.50 L (0.7-1.0) mg/dL Estim Creat Clear Calc 228 ml/min Estimated GFR > 60 (59 - ) Glucose 341 H (65-110) mg/dL Calcium 8.9 (8.4-10.2) mg/dL Total Bilirubin 0.3 (0.2-1.3) mg/dL AST 14 (14-36) U/L ALT 12 (6-35) U/L Alkaline Phosphatase 110 (38-126) U/L Troponin I < 0.012 < 0.012 (0.000-0.034) ng/mL Total Protein 7.0 (6.3-8.2) g/dL Albumin 3.8 (3.5-5.1) g/dL Lipase 31 (23-300) U/L Discharge Plan Discharge Clinical Impression: Anxiety, Nausea, Acute epigastric pain Patient Disposition: Home, Self-Care Condition: Stable Instructions: Chest Pain (ED), Acute Nausea and Vomiting (ED), Anxiety (ED), Diabetic Hyperglycemia (ED) Additional Instructions: Please follow up with your doctor; you can always return for any further issues. Patient Language: Citizen Of [place] Prescriptions: New famotidine 20 mg tablet 20 mg PO DAILY Qty: 30 0RF dicyclomine 20 mg tablet 20 mg PO TID PRN (Reason: abdominal pain) Qty: 30 0RF ondansetron 4 mg tablet,disintegrating 4 mg PO Q8H PRN (Reason: nausea and vomiting) Qty: 10 0RF No Action ipratropium-albuterol 0.5 mg-3 mg(2.5 mg base)/3 mL solution for nebulization INHALATION baclofen 10 mg tablet irbesartan 150 mg tablet Coricidin HBP Cough and Cold 4-30 mg tablet 1 tablet PO Q6H PRN (Reason: cold symptoms) Qty: 20 0RF fluticasone propionate [Flonase Allergy Relief] 50 mcg/actuation spray,suspension 2 spray NASAL DAILY 14 Days Qty: 15.8 0RF Rx Instructions: administer into each nostril atorvastatin 10 mg tablet atenolol 25 mg tablet famotidine 40 mg tablet buspirone 7.5 mg tablet cholestyramine (with sugar) 4 gram powder in packet escitalopram oxalate 5 mg tablet losartan 50 mg tablet ondansetron HCl 8 mg tablet sennosides-docusate sodium [Senexon-S] 8.6-50 mg tablet PO hydrocortisone 2.5 % cream with perineal applicator trazodone 150 mg tablet insulin lispro [Humalog KwikPen Insulin] 100 unit/mL insulin pen SUBCUT varenicline 1 mg tablet insulin glargine [Lantus Solostar U-100 Insulin] 100 unit/mL (3 mL) insulin pen SUBCUT Trulicity 0.75 mg/0.5 mL pen injector SUBCUT (DME) Blood Glucose Test Strip See Rx Instructions .ROUTE .MEDSUPPLY Qty: 10 Rx Instructions: As directed dicyclomine 20 mg tablet 20 mg PO BID glimepiride 4 mg tablet 4 mg PO BID Rx Instructions: administer with breakfast hydrochlorothiazide 25 mg tablet 25 mg PO DAILY albuterol sulfate [Ventolin HFA] 90 mcg/actuation HFA aerosol inhaler 1 inh inhalation Q4H PRN (Reason: Shortness Of Breath) baclofen 10 mg tablet 10 mg PO TID lidocaine [RectiCare] 5 % cream 1 applic topical BID Qty: 30 0RF naproxen 500 mg tablet 500 mg PO BID PRN (Reason: pain) 7 Days Qty: 14 0RF Follow-up/Referrals: Brandi,Nimco Bob APN [Primary Care Provider] - 2 Days Stand Alone Forms: Work/School Release IP
[2024-08-17 09:39] LABS: Troponin I < 0.012 ng/mL (0.000-0.034)
[2024-08-17] MEDS: LORazepam INJ (*CRX) 2 MG/ML VIAL 0.5 MG IV PUSH (10:51)
[2024-08-17] MEDS: METOCLOPRAMIDE HCL INJ 10 MG/2 ML VIAL IV PUSH (10:51)
[2024-08-17] MEDS: diphenhydrAMINE HCl INJ 50 MG/ML VIAL 25 MG IV PUSH (10:51)
[2024-08-17] MEDS: SODIUM CHLORIDE 0.9% IV 1,000 ML 999 ML IV CONT (10:51)
--- NOTE | 2024-08-17 12:06 | ECG_ITS ---
Test Date: 2024-08-17 12:18:27 Measurements Intervals [place] Rate: 75 P: 10 MO: 157 QRS: -4 QRSD: 101 T: 15 QT: 394 QTc: 442 Interpretive Statements SINUS RHYTHM POOR R WAVE PROGRESSION IN ANTERIOR PRECORDIAL LEADS Compared to ECG 08/17/2024 08:41:36 NO SIGNIFICANT CHANGES SEEN Electronically Signed On 08-17-2024 16:13:58 EMBEDDED SYSTEMS SOFTWARE ENGINEER by April Farley
[2024-08-17 12:24] VITALS: BP 109/74; PULSE 83; RESP 26; O2SAT 98
[2024-08-17 12:38] LABS: Troponin I < 0.012 ng/mL (0.000-0.034)
== END 2024-08-17 12:26 | disposition home or self-care (01) ==
PROVIDERS: Emergency Provider Emergency Medicine; PCP Nurse Practitioner Family
DX: R10.13 Epigastric pain (principal); R11.0 Nausea; F41.9 Anxiety disorder, unspecified; E66.01 Morbid (severe) obesity due to excess calories; Z68.45 Body mass index [BMI] 70 or greater, adult; E13.9 Other specified diabetes mellitus without complications; I10 Essential (primary) hypertension; J45.909 Unspecified asthma, uncomplicated; K21.9 Gastro-esophageal reflux disease without esophagitis; F17.210 Nicotine dependence, cigarettes, uncomplicated; Z86.2 Personal history of diseases of the blood and blood-forming organs and certain disorders involving the immune mechanism; Z79.4 Long term (current) use of insulin; Z79.899 Other long term (current) drug therapy; Z79.84 Long term (current) use of oral hypoglycemic drugs; Z79.85 Long-term (current) use of injectable non-insulin antidiabetic drugs; R94.31 Abnormal electrocardiogram [ECG] [EKG]
CPT/HCPCS: 36415; 71046; 80053; 83690; 84484; 85025; 85610; 85730; 93005; 96361; 96374; 96375; 99284; A9270; J1200; J2060; J2405; J2470; J2765; J7030

== ENCOUNTER 2024-10-02 12:36 | Emergency (ER) | payer SELFPAY ==
[2024-10-02 12:46] VITALS: BP 142/85; PULSE 91; RESP 16; TEMP 36.8; O2SAT 98
[2024-10-02 13:03] LABS: Glucose Point of Care 325 mg/dl (65-105)
--- OUTSIDE RECORDS SUMMARY | 2024-10-02 13:07 | XMS_ITS | Encounter Summary ---
Author Organization [facility] Address [address] [place] [address] Phone Care Team Providers Care Chucking And Boring Machine Operator Name Role Phone Leslie Avila APRN, CNP Unavailable Nimco Paz APRN, CNP Primary Care Provider [phone] Reason for Visit * Reason Comments Medication Refill Encounter Details Date Type Department Care Team (Late st Contact Info) Description 01/08/2024 Refill [facility] - Pulmonology & Sleep Medicine - [place] [address] [place] [address] Leslie Avila APRN, CNP [address] [address] Medication Refill Social History Tobacco Use Types Packs/Day Years Used Date Smoking Tobacco: Former Cigarettes 1 10 0 04/21/2013 - 04/21/2023 Smokeless Tobacco: Never Alcohol Use Standard Drinks/Week Comments Not Currently 0 (1 standard drink = 0.6 oz pur e alcohol) rarely Comments No Sex and Gender Information Value Date Recorded Sex Assigned at Not on file Legal Sex Female 9:19 PM CDT Gender Identity Not on file Sexual Orientation Not on file documented as of this encounter Miscellaneous Notes * Telephone Encounter - Annalise Andersen RN - 01/10/2024 8:13 AM CDT Medication(s) refilled and signed per [facility] Chronic Medication Refill Standing Order for Pediatricand Adult Patients. Requested Prescriptions Pending Prescriptions Disp Refills ipratropium-albuterol (DUO-NEB) 0.5-2.5 (3) MG/3ML Solution [Pharmacy Med Name: IPRAT-ALBUT 0.5-3(2.5) MG/3 ML] 360 mL 3 Sig: INHALE 3 ML BY NEBULIZATION ROUTE 4 TIMES DAILY Inhaled Combinations Protocol Passed - 01/08/2024 9:41 AM Passed - Visit with relevant provider in past 12 months or upcoming 90 days Recent Visits Date Type Provider Dept 12/14/23 Office Visit Leslie Avila APRN, CNP [facility] 04/30/23 Office Visit Leslie Avila APRN, CNP [facility] Showing recent visits within past 365 days and meeting all other requirements Future Appointments Date Type Provider Dept 03/27/24 Appointment Leslie Avila APRN, CNP [facility] Showing future appointments within next 90 days and meeting all other requirements Passed - Active short-acting beta agonist prescription documented in this encounter Plan of Treatment Not on file documented as of this encounter Visit Diagnoses Not on filedocumented in this encounter Care Teams Chucking And Boring Machine Operator Relationship Specialty Start Date End Date Nimco Paz APRN, CNP [address] [address] PCP - General Family Medicine 12/14/23 Leslie Avila APRN, CNP #[address] [address] Nurse Practitioner Advanced Practice Nurse 04/30/23 documented as of this encounter
--- OUTSIDE RECORDS SUMMARY | 2024-10-02 13:08 | XMS_ITS | Referral Summary ---
Author Organization [facility] Address [address] [place] [address] Care Team Providers Care Side Panel Hanger Name Role Phone Nimco Paz NP Primary Care Provider [phone] Encounters Date Type Department Care Team Description 07/18/2024 Telephone [facility] Diabetes Endocrine Care at [address] [address] April Byrd, RET[employer] ASS[employer] PROTECTION SPECIALIST from Last 3 Months Allergies Active Allergy Reactions Criticality Noted Date Comments Haloperidol Vomiting Low 09/18/2021 Metformin Anaphylaxis High 09/18/2021 Terbutaline Venom-Wasp Venom-Yellow Jacket Medications hydroCHLOROthiaz mitra (HYDRODIURIL) 12.5 mg tablet Take 2 tablets (25 mg total) by mouth daily 8 Active dicyclomine (BENTYL) 20 mg tabletIndication s:Abdominal Pain with Cramps Take 1 tablet (20 mg total) by mouth 2 (two) times a day 30 tablet 0 Active baclofen (LIORESAL) 10 mg tablet Take 2 tablets (20 mg total) by mouth 2 (two) times a day 1 Active atenoloL (TENORMIN) 25 mg tabletIndication s:tachycardia Take 1 tablet (25 mg total) by mouth daily Active busPIRone (BUSPAR) 7.5 mg tablet Take 1 tablet (7.5 mg total) by mouth 2 (two) times a day [address] (VOLTAREN) 50 mg EC tablet Take 2 tablets (100 mg total) by mouth 2 (two) times a day 2 Active glimepiride (AMARYL) 4 mg tablet Take 1 tablet (4 mg total) by mouth daily 2 Active OneTouch Verio test strips strip USE TO CHECK BLOOD SUGAR THREE TIMES DAILY 2 Active ibuprofen (ADVIL,MOTRIN) 800 mg tabletIndication s:Pain Take 1 tablet (800 mg total) by mouth 3 (three) times a day 21 tablet 2 Active atorvastatin (LIPITOR) 10 mg tablet Take 1 tablet (10 mg total) by mouth daily 3 Active varenicline tartrate (CHANTIX) 1 mg tablet TAKE 1 TABLET BY MOUTH 2 TIMES DAILY FOR 90 DAYS. 3 Active ipratropium-albu teroL (DUO-NEB) 0.5-2.5 mg/3 mL nebulizer solution INHALE 3 ML BY NEBULIZATION ROUTE 4 TIMES DAILY 4 Active irbesartan (AVAPRO) 150 mg tablet Take 1 tablet (150 mg total) by mouth daily 4 Active TRUEplus Pen Needle 31 gauge x 1/4 needle USE WITH DAILY LANTUS AND HUMALOG INJECTION UP TO 5 TIMES DAILY. 4 Active traZODone (DESYREL) 150 mg tablet Take 1 tablet (150 mg total) by mouth nightly at bedtime 4 Active senna-docusate (PERICOLACE) 8.6-50 mg Take 1 tablet by mouth every morning 30 tablet 4 Active mometasone-formo terol (DULERA 100) 100-5 mcg/actuation inhaler INHALE 2 PUFFS BY MOUTH EVERY 12 HOURS. Active escitalopram (LEXAPRO) 20 mg tablet Take 1 tablet (20 mg total) by mouth daily 4 Active FreeStyle Gigi 3 Sensor device 1 Device continuously Change every 14 days. E11.65 2 each 11 4 Active insulin regular U-500 (HumuLIN R) 500 unit/mL (3 mL) CONCENTRATED pen for injection Inject U500 insulin 40 units in the a.m., 30 units in the p.m. E11.65 15 mL 4 08/29/202 4 Active famotidine (PEPCID) 40 mg tablet Take 1 tablet (40 mg total) by mouth daily 90 tablet 4 Active Active Problems Problem Noted Date Diagnosed Date Type 2 diabetes mellitus wit h hyperglycemia, with long-term current use of insulin 12/02/2023 Assessment & Plan (04/05/2024 3:15 PM CDT): This is a chronic condition which is improving but not at goal . Goal is less than 7%. Personally reviewed most recent A1c - Lab Results Component Value Date HGBA1C 9.3 03/20/2024 Personally reviewed POC blood sugar- not at goal of 80-180 Lab Results Component Value Date POCGLU 224 04/05/2024 Medication- Change U500 30 units twice daily, continue glimepiride 4 mg daily,stop Trulicity 4.5 mg weekly as she will not be able to afford it without insurance. Forms provided for [employer] patient assistance program. Will try to get Tresiba U200, Novolog and ozmepic if she qualifies. Monitor blood sugar continuously with cgm. Encouraged annual eye exam. Monofilament foot exam completed. Loss of some protective senses Personally reviewed CMP eGFR- >90 Kidney function-normal Urine microalbumin/creatinine ratio - at goal. Goal is <30. Continue Atenolol, hctz, irbesartan. Assessment & Plan (03/20/2024 11:00 AM CDT): This is a chronic condition which is worsening, not at goal . Goal is less than 7%. Personally reviewed most recent A1c - Lab Results Component Value Date HGBA1C 9.3 03/20/2024 Personally reviewed POC blood sugar- at goal of 80-180 Lab Results Component Value Date POCGLU 332 03/20/2024 Medication- stop Lantus and Humalog, start U500 60 units twice daily, glimepiride 4 mg daily, increase Trulicity 4.5 mg weekly Monitor blood sugar continuously with gigi 3 cgm. Encouraged annual eye exam. Monofilament foot exam completed. Protective senses intact Personally reviewed CMP eGFR- >90 Kidney function-normal Urine microalbumin/creatinine ratio - at goal. Goal is <30 Continue atenolol, hctz, irvesartan Assessment & Plan (12/02/2023 11:06 AM CDT): This is a chronic condition which is close to goal of less than 7%. Personally reviewed most recent A1c - Lab Results Component Value Date HGBA1C 7.2 12/02/2023 Personally reviewed POC blood sugar- not at goal 80-180 Lab Results Component Value Date POCGLU 193 12/02/2023 Medication- Continue Lantus 44 units b.i.d., Humalog 14 units 3 times a day prior to meals, glimepiride 4 mg daily, Trulicity 3 mg weekly Monitor blood sugar 4 times a day. Continuously with Dexcom 7 sensor. Encouraged annual eye exam. Monofilament foot exam completed. protective senses intact Personally reviewed CMP eGFR- 126 Kidney function- normal Urine microalbumin/creatinine ratio - need. goal <30 treated with atenolol, hydrochlorothiazide, irbesartan, losartan B/P today- at goal of <140/90. continue atenolol, hydrochlorothiazide, irbsartan, losartan lipid panel ordered. Goal of less than 70. Continue atorvastatin Hypertension associated with type 2 diabetes iggy litus 12/02/2023 Assessment & Plan (04/05/2024 3:16 PM CDT): This is a chronic condition which is at goal. Goal is less than 140/90 Personally reviewed labs. Continue atenolol, hctz, irbesartan. Encouraged to monitor weight and B/P at home. Encouraged to void caffeine and excessive alcohol consumption as this will elevate B/P Encouraged to take medications as prescribed. Assessment & Plan (03/20/2024 11:02 AM CDT): This is a chronic condition which is at goal. Goal is less than 140/90 Personally reviewed labs. Continue atenolol, hctz, irbesartan Encouraged to monitor weight and B/P at home. Encouraged to void caffeine and excessive alcohol consumption as this will elevate B/P Encouraged to take medications as prescribed. Assessment & Plan (12/02/2023 11:31 AM CDT): This is a chronic condition which is at goal of less than 140/90 Personally reviewed labs. Continue atenolol, hydrochlorothiazide, irbesartan, losartan Encouraged to monitor weight and B/P at home Encouraged to take medications as prescribed. Mixed diabetic hyperlipidemi a associated with type 2 diabetes mellitus 12/02/2023 Assessment & Plan (04/05/2024 3:15 PM CDT): This is a chronic condition which is at goal . Goal is LDL less than 70 Continue atorvastatin Encouraged to eat healthy, include fresh fruits and vegetables daily and avoid eating fried foods more than once per week. Encouraged to take medications as prescribed. Assessment & Plan (03/20/2024 11:01 AM CDT): This is a chronic condition which is at goal . Goal is LDL less than 70 Continue atorvastatin Encouraged to eat healthy, include fresh fruits and vegetables daily and avoid eating fried foods more than once per week. Encouraged to take medications as prescribed. Assessment & Plan (12/02/2023 11:32 AM CDT): This is a chronic condition. goal of LDL less than 70. Repeat lipid panel Continue atorvastatin Encouraged to eat healthy, include fresh fruits and vegetables daily and avoid eating fried foods more than once per week. Encouraged to take medications as prescribed. Dysphagia 09/28/2023 Noninfectious gastroenteritis 09/23/2023 Irritable bowel syndrome wit h both constipation and diarrhea 09/23/2023 Irregular bowel habits 09/23/2023 Rectal bleeding 09/23/2023 Rectal pain 09/23/2023 Family history of colon cancer in father 024 Class 3 severe obesity due t o excess calories with serious comorbidity and body mass index (BMI) of 60.0 to 69.9 in adult 02/10/2022 Assessment & Plan (04/05/2024 3:17 PM CDT): This is a chronic condition which continues 10 lbs. Weight loss since last office visit (03/20/24) Encouraged healthy eating which includes a low carb diet. Avoiding processed foods, sweets and fried foods. Encouraged 30 minutes of walking at least 5 days per week Discussed that exercise can be broken down into small sessions- for example 2- 15 minutes sessions or 3- 10 minutes sessions. Assessment & Plan (03/20/2024 11:01 AM CDT): This is a chronic condition which continues 11 lbs. Weight loss since last office visit Encouraged healthy eating which includes a low carb diet. Avoiding processed foods, sweets and fried foods. Encouraged 30 minutes of walking at least 5 days per week Discussed that exercise can be broken down into small sessions- for example 2- 15 minutes sessions or 3- 10 minutes sessions. Assessment & Plan (12/02/2023 11:30 AM CDT): This is a chronic condition which has worsened 13 lb weight gain since 09/29 Continue Trulicity 3 mg weekly Discussed increasing Trulicity to 4.5 mg weekly however she has irritable bowel syndrome and this makes her bowel issues flare. Ambulatory referral to [facility] weight management clinic She has consider bariatric surgery but her anxiety about dying on the table prevented her from moving forward Assessment & Plan (03/26/2022 5:04 PM CDT): We have really discussed a food journal and working on 1600 calories a day. As she is extremely limited in her mobility what she takes in is the only thing she will be able to control. Continue to work with the dietitian. Follow back up with us next month to reassess progress Assessment & Plan (02/10/2022 4:33 PM CDT): Given their past success the patient would be a good candidate for weight loss surgery. We have gone over options such as the bypass and sleeve gastrectomy. We have also discussed risks and benefits such as blood clots, staple line leak as well as new or worsening reflux symptoms. They are in understanding. During this time will have them seen by the dietitian and psych. As we get closer to the time of surgery we will set him up for an EGD to look for hiatal hernia, H pylori or other gastric pathology. We will see them back in 4 weeks. They are in understanding of the plan. We have gone over small frequent meals shooting for a goal calorie intake of around 1600 spread throughout 4-5 meals. We have discussed not eating late at night. We have discussed cardiovascular exercise. We have had extensive talks that given her BMI over 70 I would favor a bypass. However she is somewhat hesitant to do this. If she wants to pursue a sleeve I discussed I want to see her lose enough weight to get her BMI under 60. She needs to show me that she is able to actually lose weight along this pathway otherwise we discussed in a year's time she will put all the weight back. She seems to be in understanding. Greater than 15 minutes was spent in counseling the patient on diet and exercise with regards to her morbid obesity. Anal or rectal pain 10/15/2021 Overview (10/15/2021): Added automatically from request for surgery [id number] Social History Tobacco Use Types Packs/Day Years Used Date Smoking Tobacco: Former Cigarettes Q uit: 02/13/2023 Smokeless Tobacco: Never Tobacco Cessation:Counseling Given: Not Answered Alcohol Use Standard Drinks/Week Comments Not Currently 0 (1 standard drink = 0.6 oz pur e alcohol) AUDIT-C Answer Date Recorded Q1: How often do you have a drink containing alc ohol? Never 11/06/2021 Average Number of Drinks Not on file 022 Frequency of Binge Drinking Not on file 11/2021 Personal Safety Answer Date Recorded Have you ever been in or are you currently in a harmful physical or emotional relationship or is someone making you feel afraid or unsafe? Denies 05/02/2024 Comments No Sex and Gender Information Value Date Recorded Sex Assigned at Not on file Legal Sex Female 10:29 PM [employer]ISH[employer] MAP [employer] CHART Gender Identity Not on file Sexual Orientation Not on file Last Filed Vital Signs Vital Sign Reading Time Taken Comments Blood Pressure 125/86 05/03/2024 2:30 AM CDT Pulse 81 05/03/2024 2:30 AM CDT Temperature 36.9 ??C (98.5 ??F) 05/02/2024 8:08 PM CD T Respiratory Rate 19 05/03/2024 1:45 AM CDT Oxygen Saturation 97% 05/03/2024 2:30 AM CDT Inhaled Oxygen Concentration - - Weight 186.9 kg (412 lb) 05/02/2024 8:08 PM CDT Height 162.6 cm (5' 4 ) 04/05/2024 2:15 PM CDT Body Mass Index 70.72 04/05/2024 2:15 PM CDT Plan of Treatment Not on file Procedures Procedure Name Priority Date/Time Associated Diagnosis Comments EGFR STAT 05/02/2024 8:28 PM CDT POCT HEMOGLOBIN A1C Routine 03/20/2024 1 0:02 AM CDT Type 2 diabetes mellitus with hyperglycemia, with long-term current use of insulin (HCC) LIPID PANEL Routine 12/02/2023 11:03 AM CDT Type 2 diabetes mellitus with hyperglycemia, unspecified whether director long term care insulin use (HCC) ALBUMIN CREATININE RATIO, URINE Routine 12/02/2023 11:03 AM CDT Type 2 diabetes mellitus with hyperglycemia, unspecified whether director long term care insulin use (HCC) DIABETIC EYE EXAM Routine 10/09/2022 from Last 3 Months or Most Recently Relevant to Health Maintenance Results * eGFR (05/02/2024 8:28 PM CDT) eGFR >90 >=60 mL/min/1. 73 m2 Comment: Interpretive Data Reference Interval Normal ?>/= 90 mL/min/1.73m2 Mildly decreased* ? 60 - 89 mL/min/1.73m2 Mildly to moderately decreased ?45 - 59 mL/min/1.73m2 Moderately to severely decreased ??30 - 44 mL/min/1.73m2 Severely decreased ?15 - 29 mL/min/1.73m2 Kidney Failure ?< 15 ??mL/min/1.73m2 *Relative to young adult level Estimated glomerular filtration rate is determined by the 2020 CKD-EPI equation recommended by the National Kidney Foundation (A Unifying Approach to GFR Estimation: Recommendations of the NKF-ASK Task Force on Reassessing the Inclusion of Race in Diagnosing Kidney Disease, JASN 2020). The CKD-EPI equation should not be used for patients with unstable renal function and has not been validated in children and those over 70. Current interpretive data was last reviewed 2021. Blood 05/02/2024 8:28 PM CDT 05/02/2024 9:04 PM CDT Feliciano Lynch MD LAB BLOOD ORDERABLES Final R esult JUANHEVER CAMARA (EPHRAIM) 1 [facility] Department of Laboratories [place], [place] [id number] * (ABNORMAL) POCT hemoglobin A1c (03/20/2024 10:02 AM CDT) Hemoglobin A1C, POC 9.3 % Blood 03/20/2024 10:0 2 AM CDT April Byrd NP POINT OF CARE TEST ORDERABLES F inal Result * Albumin Creatinine Ratio, Urine (12/02/2023 11:03 AM CDT) Albumin Ur <12.0 mg/L Comment: Interpretive Data No reference range established. Current interpretive data was last revised 2019. Testing performed by: , [address] [place] [address]., [id number] Creatinine Ur 105.0 mg/dL OSVALDO CAMARA (JUWAN) Comment: Interpretive Data No reference range established. Current interpretive data was last revised 2019. Testing performed by: , [address] [place] [address]., [id number] Albumin Creatinine Ratio, Ur <11 1 - 29 mg/g OSVALDO CAMARA (JUWAN) Comment:Testing performed by : [address] [address] Urine 12/02/2023 11:0 3 AM CDT 12/02/2023 3:36 PM CDT us April Byrd NP LAB URINE ORDERABLES Final Resu lt OSVALDO CAMARA (JUWAN) 1 [facility] Department [place] [address] * (ABNORMAL) Lipid panel (12/02/2023 11:03 AM CDT) Cholesterol 130 30 - 199 mg/dL Comment: Interpretive Data Ages < or = 19 years ??Acceptable: ? <170 mg/dL ??Borderline high: ??170-199 mg/dL ??High: ? >or= 200 mg/dL Ages > or = 20 years ??Desirable: ?<200 mg/dL ??Borderline high: ??200-239 mg/dL ??High: ? >or= 240 mg/dL Literature References: 1. Expert Panel on Integrated Guidelines for Cardiovascular Health and Risk Reduction in Children and Adolescents. Pediatrics 2011;128:S213 2. NCEP Expert Panel. Circulation 2004;110:227 Current Interpretive Data was last revised on 2018. Triglycerides 303(H) <=149 mg/dL OSVALDO CAMARA (JUWAN) Comment: Interpretive Data Ages < or = 9 years ??Acceptable: ? <75 mg/dL ??Borderline high: ??75-99 mg/dL ??High: ? >or= 100 mg/dL Ages 10 to 20 years ??Acceptable: ? <90 mg/dL ??Borderline high: ??90-129 mg/dL ??High: ? >or= 130 mg/dL Ages > or = 20 years ??Desirable: ?<150 mg/dL ??Borderline high: ??150-199 mg/dL ??High: ? 200-499 mg/dL ?Very high: ?? >or= 499 mg/dL Literature References: 1. Expert Panel on Integrated Guidelines for Cardiovascular Health and Risk Reduction in Children and Adolescents. Pediatrics 2011;128:S213 2. NCEP Expert Panel. Circulation 2004;110:227 Current Interpretive Data was last revised on 2018. HDL 24(L) >=40 mg/dL OSVALDO CAMARA (JUWAN) Comment: Interpretive Data Ages < or = 19 years ??Acceptable: ? >45 mg/dL ??Borderline low: ?? 40-45 mg/dL ??Low: ? <40 mg/dL Ages > or = 20 years ??Desirable: ?>or= 60 mg/dL ??Low: ? <40 mg/dL Literature References: 1. Expert Panel on Integrated Guidelines for Cardiovascular Health and Risk Reduction in Children and Adolescents. Pediatrics 2011;128:S213 2. NCEP Expert Panel. Circulation 2004;110:227 Current Interpretive Data was last revised on 2018. LDL, calculated 45 <=129 mg/dL OSVALDO CAMARA (JUWAN) Comment: Interpretive Data Ages < or = 19 years ??Acceptable: ? <110 mg/dL ??Borderline high: ??110-129 mg/dL ??High: ?>or= 130 mg/dL Ages > or = 20 years ??Optimal: ? <100 mg/dL ??Near optimal: ?100-129 mg/dL ??Borderline high: ?? 130-159 mg/dL ??High: ?>160 mg/dL Literature References: 1. Expert Panel on Integrated Guidelines for Cardiovascular Health and Risk Reduction in Children and Adolescents. Pediatrics 2011;128:S213 2. NCEP Expert Panel. Circulation 2004;110:227 Current Interpretive Data was last revised on 2018. Non-HDL Cholesterol 106 mg/dL OSVALDO CAMARA (JUWAN) Comment: Interpretive Data Ages < or = 19 years ??Acceptable: ?<120 mg/dL ??Borderline high: ??120-144 mg/dL ??High: ?>145 mg/dL Ages > or = 20 years ??When triglycerides are >200 mg/dL, Non-HDL cholesterol is a secondary target of ? therapy with treatment goals that are 30 mg/dL greater than the LDL cholesterol target. ? Literature References: 1. Expert Panel on Integrated Guidelines for Cardiovascular Health and Risk Reduction in Children and Adolescents. Pediatrics 2011;128:S213 2. NCEP Expert Panel. Circulation 2004;110:227 Current Interpretive Data was last revised on 2018. Chol/HDL ratio 5 JUANCHRISTY Deedee CAMARA (EPHRAIM) Blood 12/02/2023 11:0 3 AM CDT 12/02/2023 1:55 PM CDT Narrative OSVALDO JAX (JUWAN) - 12/02/2023 2:25 PM CDT These lab test should be done fasting. This means do not eat or drink for at least 12 hours prior to getting your blood drawn. April Byrd NP LAB BLOOD ORDERABLES Final Resu lt OSVALDO JAX (JUWAN) 1 [facility] [place] [address] * Diabetic Eye Exam (10/09/2022) Historical Provider MD HEALTH MAINTENANCE Final Result from Last 3 Months or Most Recently Relevant to Health Maintenance Insurance [facility] Advance Directives For more information, please contact: [phone] * Full Code (Latest Code Status on File) Date Activated Date Inactivated Comments 11/15/2023 7:17 AM 11/15/2023 1:35 PM * Full Code Date Activated Date Inactivated Comments 11/15/2023 7:17 AM 11/15/2023 7:17 AM Care Teams Side Panel Hanger Relationship Specialty Start Date End Date Nimco Paz NP [address] [place] [address] PCP - General 07/08/20
--- OUTSIDE RECORDS SUMMARY | 2024-10-02 13:08 | XMS_ITS | Clinical Summary ---
Author Organization [facility] Address [address] [place] [address] Phone Care Team Providers Care Machine Molder Squeeze Name Role Phone Leslie Avila APRN, SHAINA Unavailable [phone] Nimco Paz APRN, CNP Primary Care Provider [phone] Allergies Active Allergy Reactions Criticality Noted Date Comments Haloperidol Other (see Comments) 04/28/2023 insomnia Metformin Diarrhea 04/28/2023 Other-Environmental Allergen (Not Found In Search) Rash 09/07/2023 Cat dander Terbutaline Other (see Comments) 06/19/2020 my heart stops Wasp Venom Unknown 09/07/2023 Medications metFORMIN (GLUCOPHAGE-XR) 500 MG TABLET SR 24 HR Take 500 mg by mouth daily. This RX is for Metformin SR. Active ALBUTEROL IN take by inhalation. Active atenolol (TENORMIN) 25 MG Tablet Take 25 mg by mouth daily. Active baclofen (LIORESAL) 10 MG Tablet Take 10 mg by mouth 3 times daily. Active busPIRone HCl 7.5 MG Tablet Take by mouth. A ctive diclofenac (VOLTAREN) 50 MG Tablet Delayed Response Take 50 mg by mouth 3 times daily. Active dicyclomine (BENTYL) 20 MG Tablet Take 20 mg by mouth every 6 hours as needed. Active glimepiride (AMARYL) 4 MG Tablet Take 4 mg by mouth every morning. Active Insulin Lispro (HUMALOG KWIKPEN SC) by Subcutaneous route. Active hydroCHLOROthiaz mitra 25 MG Tablet Take 25 mg by mouth daily. Active irbesartan (AVAPRO) 150 MG Tablet Take 150 mg by mouth nightly. Active insulin glargine (LANTUS) 100 UNIT/ML Solution by Subcutaneous route every evening. Active traZODone (DESYREL) 100 MG Tablet Take 100 mg by mouth nightly. Active traZODone (DESYREL) 150 MG Tablet Take 150 mg by mouth nightly. Active dulaglutide (Trulicity) 3 MG/0.5ML Solution Pen-injector by Subcutaneous route. Active varenicline (CHANTIX) 1 MG Tablet Take 1 Tablet by mouth 2 times daily. 60 Tablet 1 4 Active Additional Information Patient not taking.Reported on 12/14/2023 atorvastatin (Lipitor) 10 MG Tablet Take 10 mg by mouth daily. Active losartan (COZAAR) 50 MG Tablet Take 50 mg by mouth. 1 Active mometasone furo-formoterol fum 100-5 MCG/ACT AerosolIndicatio ns:Mild intermittent asthma without status asthmaticus without complication take 2 Puffs by inhalation every 12 hours. 13 g 3 4 Active ipratropium-albu terol (DUO-NEB) 0.5-2.5 (3) MG/3ML Solution INHALE 3 ML BY NEBULIZATION ROUTE 4 TIMES DAILY 360 mL 3 4 Active varenicline (CHANTIX) 1 MG TabletIndication s:Personal history of tobacco use Take 1 Tablet by mouth 2 times daily. 180 Tablet 4 Active Active Problems Problem Noted Date Diagnosed Date Chest wall pain 2024 SOB (shortness of breath) 12/14/2023 Asthma without status asthmaticus 04/30/2023 Personal history of tobacco use 04/30/2023 Class 3 severe obesity due t o excess calories with serious comorbidity and body mass index (BMI) of 60.0 to 69.9 in adult 04/30/2023 Excessive daytime sleepiness 04/30/2023 Hypoventilation associated with obesity syndrome 04/30/2023 Family History Medical History Relation Name Comments Asthma Brother Asthma Father Diabetes Father Kidney Disease Father Breast Cancer Maternal Grandmother Cervical Cancer Mother Depression Mother Diabetes Mother High Cholesterol Mother Breast Cancer Sister Relation Name Status Comments Brother Father Maternal Grandmother Mother Sister Social History Tobacco Use Types Packs/Day Years Used Date Smoking Tobacco: Former Cigarettes 1 10 0 04/21/2013 - 04/21/2023 Smokeless Tobacco: Never Tobacco Cessation:Counseling Given: Not [...] Sign Reading Time Taken Comments Blood Pressure 144/82 2024 10:40 AM CDT Pulse 80 2024 10:40 AM CDT Temperature 36.2 ??C (97.1 ??F) 2024 1 0:40 AM CDT Respiratory Rate 18 2024 10:4 0 AM CDT Oxygen Saturation 97% 2024 10: 40 AM CDT Inhaled Oxygen Concentration - - Weight 192.1 kg (423 lb 9.6 oz) 024 10:40 AM CDT Height 162.6 cm (5' 4 ) 2024 10:4 0 AM CDT Body Mass Index 72.71 2024 10:40 AM CDT Plan of Treatment Health Maintenance Due Date Last Done Comments Hepatitis C Virus (HCV) Screening 1986 TdaP Immunization 1986 Hepatitis B Immunization (2 of 3 - 3-dose series) 06/22/2000 05/25/2000 Pneumococcal Immunization Combined (1 of 2 - PCV) 2005 Pap Smear 2007 Cervical Cancer Screening (CCS) 01/19/2016 HPV/Cotest 01/19/2016 Influenza Immunization (#1) 05/07/202406/07, 06/11/2021, 06/06/2020, Additional history exists SARS-COV-2 Immunization ( - season) 2024 05/29/2021, 04/23/2021 Respiratory Syncytial Virus (RSV) Immunization (Adult) (1 - 1-dose 75+ series) 2061 DTaP/Tdap/Td Immunization Discontinued 05/25/2000 Meningococcal Immunization (ACWY) Aged Out No longer eligible based on patient's age to complete this topic Rotavirus Immunization Aged Out No lo nger eligible based on patient's age to complete this topic Insurance MEDICAID [id number] Care Teams Machine Molder Squeeze Relationship Specialty Start Date End Date Nimco Paz APRN, SHAINA [address] [place] [address] PCP - General Family Medicine 12/14/23 Leslie Avila APRN, SHAINA [address] [address] Nurse Practitioner Advanced Practice Nurse 04/30/23
--- OUTSIDE RECORDS SUMMARY | 2024-10-02 13:08 | XMS_ITS | Encounter Summary ---
Author Organization [facility] Address [address] [place] [address] Phone Care Team Providers Care Shearer Helper Name Role Phone Nimco Paz APRN, SHAINA Primary Care Provider [phone] Melania Woodard MD Primary Care Provide r Leslie Avila APRN, CNP Unavailable Nimco Paz APRN, CNP Primary Care Provider [phone] Reason for Visit * Reason Comments Medication Refill Encounter Details Date Type Department Care Team (Late st Contact Info) Description 05/17/2023 Refill [facility] - Pulmonology & Sleep Medicine [facility] [address] [place] [address] Leslie Avila APRN, CNP [address] [address] Medication Refill Social History Tobacco Use Types Packs/Day Years Used Date Smoking Tobacco: Every Day Smokeless Tobacco: Never Alcohol Use Standard Drinks/Week Comments Yes 0 (1 standard drink = 0.6 oz pur e alcohol) rarely Comments No Sex and Gender Information Value Date Recorded Sex Assigned at Not on file Legal Sex Female 9:19 PM CDT Gender Identity Not on file Sexual Orientation Not on file COVID-19 Exposure Response Date Recorded In the last 10 days, have yo u been in contact with someone who was confirmed or suspected to have Coronavirus/COVID-19? No / Unsure 04/30/2023 8:46 AM CDT documented as of this encounter Miscellaneous Notes * Telephone Encounter - Annalise Andersen RN - 05/17/2023 2:50 PM CDT Medication failed the protocol, provider to review and approve the medication order if appropriate. Requested Prescriptions Pending Prescriptions Disp Refills Varenicline Tartrate 0.5 MG X 11 & 1 MG X 42 Tablet Therapy Pack [Pharmacy Med Name: VARENICLINE STARTING MONTH BOX] 53 Each Sig: USE DIRECTED PER PACKAGE INSTRUCTIONS Not Delegated - Smoking Deterrents Protocol Failed - 05/17/2023 1:33 PM Failed - This refill cannot be delegated Passed - Visit with relevant provider in past 6 months or upcoming 90 days Recent Visits Date Type Provider Dept 04/30/23 Office Visit Leslie Avila APRN, CNP [facility] [address] Showing recent visits within past 182 days and meeting all other requirements Future Appointments Date Type Provider Dept 07/27/23 Appointment Leslie Avila APRN, CNP [facility] [address] Showing future appointments within next 90 days and meeting all other requirements documented in this encounter Plan of Treatment Not on file documented as of this encounter Visit Diagnoses Not on filedocumented in this encounter Care Teams Shearer Helper Relationship Specialty Start Date End Date Nimco Paz APRN, CARPENTER REPAIRER [address] [place] [address] PCP - General Family Medicine 06/19/20 09/06/23 Melania Woodard MD [address] [facility] [address] [place] [address] PCP - General Family Medicine 09/07/23 12/13/23 Nimco Paz APRN, CARPENTER REPAIRER [address] [place] [address] PCP - General Family Medicine 12/14/23 Leslie Avila APRN, CARPENTER REPAIRER [address] [address] Nurse Practitioner Advanced Practice Nurse 04/30/23 documented as of this encounter
--- OUTSIDE RECORDS SUMMARY | 2024-10-02 13:08 | XMS_ITS | Clinical Summary ---
Author Organization [facility] Address [address] [place] [address] Care Team Providers Care Time Clerk Name Role Phone Nimco Paz NP Primary Care Provider Allergies Active Allergy Reactions Criticality Noted Date [...] in the p.m. E11.65 15 mL 4 4 Active famotidine (PEPCID) 40 mg tablet [...] afford it without insurance. Forms provided for [employer] patient assistance program. Will try to get [...] her bowel issues flare. Ambulatory referral to [facility] weight management clinic She has consider bariatric [...] (10/15/2021): Added automatically from request for surgery [id number] Encounters Date Type Department Care Team Description 07/18/2024 Telephone [facility] Diabetes Endocrine Care at [address] [address] April Byrd, DESIGN PRINTING MACHINE SET UP OPERATOR from Last 3 Months Surgical History Surgery Date Site/Laterality Comments CHOLECYSTECTOMY 09/06/2011 - 09/05/2012 SECTION 2 c-sections HEMORRHOID SURGERY 11/06/2021 COLONOSCOPY 09/06/2017 - 09/05/2018 COLONOSCOPY 09/06/2020 - 09/05/2021 Medical History Medical History Date Comments Asthma Cholecystitis 2011 HTN (hypertension) Anxiety Diabetes mellitus (HCC) Type 2 diabetes mellitus (HCC) Depression Arrhythmia irregular heart beat GERD (gastroesophageal reflux disease) Constipation Diarrhea Family History Medical History Relation Name Comments Diabetes Father Heart disease Father Hypertension Father Kidney disease Father Cancer Maternal Grandmother Asthma Mother Cancer Mother Diabetes Mother Hyperlipidemia Mother Hypertension Mother Relation Name Status Comments Daughter Alive Father liver failure Maternal Grandmother breast, ovarian Mother Alive ovarian cancer Social History Tobacco Use Types Packs/Day Years [...] on file 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 Gender Identity Not on file Sexual Orientation Not on file Obstetrics History Last Filed Vital Signs Vital Sign Reading [...] 04/05/2024 2:15 PM CDT Plan of Treatment Health Maintenance Due Date Last Done Comments Cervical Cancer Screening 1986 Depression Screening 1986 Hepatitis C Screening 1986 Pneumococcal vaccine <65 (1 of 2 - PCV) 01/19/1992 Varicella Vaccines (1 of 2 - 13+ 2-dose series) 1999 DTaP/Tdap/Td Vaccine (1 - Tdap) 05/26/2000 05/25/2000 Regular Well Visit/Exam 18-64 01/19/2004 Influenza Vaccine (#1) 2024 , 06/06/2020, 06/06/2019, Additional history exists Hemoglobin A1C 09/20/2024 03/20/2024, 12/02/2023 Dilated Eye Exam 10/09/2024 10/09/2022 Albumin Creatinine Ratio, Urine 12/01/2024 12/02/2023 Lipid Panel 12/01/2024 12/02/2023 Foot Exam 04/05/2025 04/05/2024 eGFR 05/02/2025 05/02/2024, 04/2 05/2024, 12/02/2023, Additional history exists Covid-19 Vaccine Discontinued 04/23/2021 HPV Vaccines Aged Out No longer eligi ble based on patient's age to complete this topic Procedures Procedure Name Priority Date/Time Associated Diagnosis Comments EGFR STAT 05/02/2024 8:28 PM CDT POCT HEMOGLOBIN A1C Routine 03/20/2024 1 0:02 AM CDT Type 2 diabetes mellitus with hyperglycemia, with long-term current use of insulin (HCC) LIPID PANEL Routine 12/02/2023 11:03 AM CDT Type 2 diabetes mellitus with hyperglycemia, unspecified whether terminal manager insulin use (HCC) ALBUMIN CREATININE RATIO, URINE Routine 12/02/2023 11:03 AM CDT Type 2 diabetes mellitus with hyperglycemia, unspecified whether terminal manager insulin use (HCC) DIABETIC EYE EXAM Routine 10/09/2022 from Last 3 Months or Most Recently Relevant to Health Maintenance Results * eGFR (05/02/2024 8:28 PM CDT) [facility] eGFR >90 >=60 mL/min/1. 73 m2 Comment: [...] PM CDT 05/02/2024 9:04 PM CDT Feliciano yLnch MD LAB BLOOD ORDERABLES Final R esult [facility] JAX (JUWAN) [address] [facility] [place] [address] * (ABNORMAL) POCT hemoglobin A1c (03/20/2024 10:02 AM CDT) Hemoglobin A1C, POC 9.3 % Blood 03/20/2024 10:0 2 AM CDT April Byrd NP POINT OF CARE TEST ORDERABLES F inal Result * Albumin Creatinine Ratio, Urine (12/02/2023 11:03 AM CDT) Albumin Ur <12.0 mg/L Comment: Interpretive Data No reference range established. Current interpretive data was last revised 2019. Testing performed by: [facility], [address] [place] [address]., [id number] Creatinine Ur 105.0 mg/dL [facility] CAMARA (JUWAN) Comment: Interpretive Data No reference range established. Current interpretive data was last revised 2019. Testing performed by: [facility], [address] [place] [address]., [address] Albumin Creatinine Ratio, Ur <11 1 - 29 mg/g OSVAL[facility] CAMARA (JUWAN) Comment:Testing performed by : [address] [address] Urine 12/02/2023 11:0 3 AM CDT 12/02/2023 3:36 PM CDT April Byrd NP LAB URINE ORDERABLES Final Resu lt [facility] CAMARA (JUWAN) [address] [facility] [place] [address] * (ABNORMAL) Lipid panel (12/02/2023 11:03 AM CDT) [facility] Signature Cholesterol 130 30 - 199 mg/dL Comment: [...] last revised on 2018. Chol/HDL ratio 5 TORY CAMARA (JUWAN) Blood 12/02/2023 11:0 3 AM CDT 12/02/2023 1:55 PM CDT Narrative OSVALDO CAMARA (JUWAN) - 12/02/2023 2:25 PM CDT These lab test should be done fasting. This means do not eat or drink for at least 12 hours prior to getting your blood drawn. us April Byrd NP LAB BLOOD ORDERABLES Final Resu lt OSVALDO JAX TeodoraJUWAN) 1 [facility] [place] [address] * Diabetic Eye Exam (10/09/2022) Historical Provider HEALTH MAINTENANCE Final Result from Last 3 Months or Most Recently Relevant to Health Maintenance Insurance [facility] Advance Directives For more information, please contact: [phone] * Full Code (Latest Code Status on File) Date Activated Date Inactivated Comments 11/15/2023 7:17 AM 11/15/2023 1:35 PM * Full Code Date Activated Date Inactivated Comments 11/15/2023 7:17 AM 11/15/2023 7:17 AM Care Teams Time Clerk Relationship Specialty Start Date End Date Brandi, Nimco Brown NP [address] [place] [address] PCP - General 07/08/20
--- NOTE | 2024-10-02 13:36 | ED.GENADULT ---
HPI - General Adult General Chief complaint: Dizziness Stated complaint: Dizziness/Sugar Problem Time Seen by Provider: 10/02/24 12:46 Source: patient, RN notes reviewed and old records reviewed Mode of arrival: ambulatory Limitations: no limitations History of Present Illness HPI narrative: 39 year old female who presents to express care with complaints of feelings of dizziness and blood sugar was 429 this morning at home. She states that she went to work today and was told she needed to go get checked out. Patient has glucose level of 325 per finger stick in clinic. Patient reports that she has not been taking any medications for the past 2 weeks she can not afford to buy them and recently lost her public aid assistance. She states that she talked to her diabetic provider and she told her she could stop by office for diabetic monitor samples and she could help apply for some assistance with medication but needs tax forms. Patient has not called her primary provider to discuss the fact that she can't afford her medications and to see if there is anyway to get some assistance with her medication. Patient as not followed through at diabetic providers office either. Patient refused to go to the emergency room for further evaluation need labs and more advanced testing. complaint: elevated blood sugar Onset (ago): day(s) (today dizziness and high bood sugar, reports that she has been without her medications for 2 weeks) Related Data Home Medications ?Medication ?Instructions ?Recorded ?Confirmed ?Last Taken ?Type albuterol sulfate 90 mcg/actuation 1 inh inhalation Q4H PRN Shortness 10/29/20 08/14/21 02/03/21 History aerosol inhaler (Ventolin HFA) Of Breath blood sugar diagnostic (Blood #10 ea 10/29/20 08/14/21 02/03/21 History Glucose Test strips) dicyclomine 20 mg tablet 20 mg PO BID 10/29/20 08/14/21 02/03/21 History glimepiride 4 mg tablet 4 mg PO BID 10/29/20 08/14/21 02/04/21 08:00 History hydrochlorothiazide 25 mg tablet 25 mg PO DAILY 10/29/20 08/14/21 02/04/21 08:00 History baclofen 10 mg tablet 10 mg PO TID 11/08/20 08/14/21 02/03/21 History atenolol 25 mg tablet mg 10/11/23 Unknown History atorvastatin 10 mg tablet mg 10/11/23 Unknown History buspirone 7.5 mg tablet mg 10/11/23 Unknown History cholestyramine (with sugar) 4 gram ea 10/11/23 Unknown History powder for susp in a packet dulaglutide 0.75 mg/0.5 mL mg subcut 10/11/23 Unknown History subcutaneous pen injector (Trulicity) escitalopram oxalate 5 mg tablet mg 10/11/23 Unknown History famotidine 40 mg tablet mg 10/11/23 Unknown History hydrocortisone 2.5 % topical cream 10/11/23 Unknown History with perineal applicator insulin glargine 100 unit/mL (3 unit subcut 10/11/23 Unknown History mL) subcutaneous pen (Lantus Solostar U-100 Insulin) insulin lispro 100 unit/mL subcut 10/11/23 Unknown History subcutaneous pen (Humalog KwikPen (U-100) Insulin) losartan 50 mg tablet mg 10/11/23 Unknown History ondansetron HCl 8 mg tablet mg 10/11/23 Unknown History sennosides 8.6 mg-docusate sodium PO 10/11/23 Unknown History 50 mg tablet (Senexon-S) trazodone 150 mg tablet mg 10/11/23 Unknown History varenicline tartrate 1 mg tablet mg 10/11/23 Unknown History baclofen 10 mg tablet mg 05/02/24 Unknown History ipratropium 0.5 mg-albuterol 3 mg ml inhalation 05/02/24 Unknown History (2.5 mg base)/3 mL nebulization soln irbesartan 150 mg tablet mg 05/02/24 Unknown History Allergies Allergy/AdvReac Type Severity Reaction Status Date / Time metformin Allergy Mild Diarrhea Verified 10/02/24 13:03 venom-wasp Allergy Mild unknown Verified 10/02/24 13:03 terbutaline Allergy Unknown Hyperactive Verified 10/02/24 13:03 haloperidol (From Haldol) Allergy Difficulty Verified 10/02/24 13:03 Breathing Review of Systems Review of Systems: CONSTITUTIONAL: Denies fever, chills, or sweats. EYES: Denies visual changes, redness, or discharge. ENT: Denies rhinorrhea, congestion, sore throat, or otalgia. CARDIOVASCULAR: Denies chest pain, palpitations, or edema. RESPIRATORY: Denies cough or dyspnea. GASTROINTESTINAL: Denies abdominal pain, nausea, vomiting, or diarrhea. GENITOURINARY: Denies dysuria or hematuria. SKIN: Denies rash or itching. MUSCULOSKELETAL: Chronic back pain , joint pain, or myalgia. NEUROLOGIC: Denies headache, numbness, or weakness.reports dizziness,high blood sugar PSYCHIATRIC: Reports anxiety or depression. All systems reviewed & are unremarkable except as noted in HPI and below PMFSH Past Medical History Medical History (Updated 10/03/24 @ 12:29 by Sabrina Tomas NP) Morbid obesity Tobacco abuse Diabetes 1.5, managed as type 2 Nausea Blood in stool Rectal pain Diarrhea Gallbladder & bile duct stone with obstruction Gallstones Infection of caesarean section or perineal wound High blood pressure Blood clot in vein Asthma Anxiety Anemia GERD (gastroesophageal reflux disease) Surgical History Surgical History (Updated 10/03/24 @ 12:05 by Sabrina Tomas NP) History of cholecystectomy Previous section x2 Family History Family History (Updated 10/03/24 @ 12:06 by Sabrina Tomas NP) Other Family history of renal disease Social History Social History (Updated 10/03/24 @ 12:01 by Sabrina Tomas NP) Smoking packs per day: 1.5 Smoking cigarettes per day: 30.0 Years smoked: 5 Smoking pack-years: 7.50 Smoking status: Current every day smoker Tobacco type: cigarettes and e-cigarettes/vaping Additional smoking assessment comments: former cigarette smoker presently vapes Alcohol intake: never Substance use: never Substance use type: does not use Living arrangements: with family Occupation/Education: occupation Gender identity (if verbalized by the patient): Female Spiritual care concerns: No Comments At time of signature, agree with nursing past medical, surgical, social and family history. There is no relevant family history pertinent to the presenting complaint Exam Narrative: GENERAL: chronic ill-appearing, well-nourished, morbidly obese and with over 300 blood sugar in clinic HEAD: Normocephalic, atraumatic. EYES: PERRLA and EOMI. no nystagmus ENT: Nares clear, no rhinorrhea or epistaxis. Mucous membranes moist. NECK: Supple.no lymphadenopathy CHEST: Clear to auscultation. No respiratory distress.no cough noted SAO2 98% on room air HEART: Regular rate and rhythm. No murmur heard. Normal peripheral pulses. ABDOMEN: Soft, nontender, nondistended, normal active bowel sounds.denies any nausea or vomitng EXTREMITIES: Normal range of motion. trace pedal edema. SKIN: Warm, dry, no rash. NEURO: No focal deficits. Alert and oriented x3.able to ambulate with steady gait reports dizziness.moves all extremities on own power no lag noted face symmetrical Course Course Emergency Course: Patient is aware of diagnosis.? Anticipatory guidance given.? Patient refuses to follow-up as recommended at the emergency department due to elevation of blood sugar in clinic above 300 and stated non compliance with medication regime due to financial difficulty and loss of public aide assistance. Portions of this record may have been created with voice recognition software Level of Care: Express Care Visit Vital Signs Vital signs: Vital Signs Temperature 36.8 C 10/02/24 12:46 Pulse Rate 91 10/02/24 12:46 Respiratory Rate 16 10/02/24 12:46 Blood Pressure 142/85 H 10/02/24 12:46 Pulse Oximetry 98 10/02/24 12:46 Oxygen Delivery Room Air 10/02/24 12:46 Temperature 36.8 C 10/02/24 12:46 Pulse Rate 91 10/02/24 12:46 Respiratory Rate 16 10/02/24 12:46 Blood Pressure 142/85 H 10/02/24 12:46 Pulse Oximetry 98 10/02/24 12:46 Oxygen Delivery Room Air 10/02/24 12:46 Reviewed Medical Decision Making MDM Narrative Medical decision making narrative: Patient recommended to go to the emergency department for further evaluation and testing. Patient refuses to go to the emergency room signed AMA form. I called PCP office Nimco Paz and left message with senior front end developer of patient in clinic with elevated blood sugar >300, her refusal to go to hospital and statement from patient reporting she had been without her medications for 2 weeks due financial difficulty and loss of public aid assistance and to see if anyway they have to try and obtain any help on medications for her. Differential Diagnosis Differential Diagnosis: elevation of blood sugar over 300 in clinic, non compliance with medication regime due to finances, hypertension, dizziness, Medical Records Medical records reviewed: Yes I reviewed the external patient's medical records. Vital Signs Vital Signs: Vital Signs Temperature 36.8 C 10/02/24 12:46 Pulse Rate 91 10/02/24 12:46 Respiratory Rate 16 10/02/24 12:46 Blood Pressure 142/85 H 10/02/24 12:46 Pulse Oximetry 98 10/02/24 12:46 Oxygen Delivery Room Air 10/02/24 12:46 Temperature 36.8 C 10/02/24 12:46 Pulse Rate 91 10/02/24 12:46 Respiratory Rate 16 10/02/24 12:46 Blood Pressure 142/85 H 10/02/24 12:46 Pulse Oximetry 98 10/02/24 12:46 Oxygen Delivery Room Air 10/02/24 12:46 reviewed Lab Data Lab results reviewed: Yes I reviewed the patient's lab results. Lab results narrative: blood sugar from finger stick 325 Labs: Lab Results 10/02/24 Range/Units 13:00 POC Capillary Glucose 325 H (65-105) mg/dl reviewed Critical Care Time Critical Care Time Critical Care Time: No Discharge Plan Discharge Clinical Impression: Elevated blood sugar level, Dizziness Patient Disposition: Left Against Medical Advice Condition: Serious Patient Language: Mongolian Prescriptions: No Action ipratropium-albuterol 0.5 mg-3 mg(2.5 mg base)/3 mL solution for nebulization INHALATION baclofen 10 mg tablet irbesartan 150 mg tablet Coricidin HBP Cough and Cold 4-30 mg tablet 1 tablet PO Q6H PRN (Reason: cold symptoms) Qty: 20 0RF fluticasone propionate [Flonase Allergy Relief] 50 mcg/actuation spray,suspension 2 spray NASAL DAILY 14 Days Qty: 15.8 0RF Rx Instructions: administer into each nostril atorvastatin 10 mg tablet atenolol 25 mg tablet famotidine 40 mg tablet buspirone 7.5 mg tablet cholestyramine (with sugar) 4 gram powder in packet escitalopram oxalate 5 mg tablet losartan 50 mg tablet ondansetron HCl 8 mg tablet sennosides-docusate sodium [Senexon-S] 8.6-50 mg tablet PO hydrocortisone 2.5 % cream with perineal applicator trazodone 150 mg tablet insulin lispro [Humalog KwikPen Insulin] 100 unit/mL insulin pen SUBCUT varenicline tartrate 1 mg tablet insulin glargine [Lantus Solostar U-100 Insulin] 100 unit/mL (3 mL) insulin pen SUBCUT Trulicity 0.75 mg/0.5 mL pen injector SUBCUT (DME) Blood Glucose Test Strip See Rx Instructions .ROUTE .MEDSUPPLY Qty: 10 Rx Instructions: As directed dicyclomine 20 mg tablet 20 mg PO BID glimepiride 4 mg tablet 4 mg PO BID Rx Instructions: administer with breakfast hydrochlorothiazide 25 mg tablet 25 mg PO DAILY albuterol sulfate [Ventolin HFA] 90 mcg/actuation HFA aerosol inhaler 1 inh inhalation Q4H PRN (Reason: Shortness Of Breath) baclofen 10 mg tablet 10 mg PO TID lidocaine [RectiCare] 5 % cream 1 applic topical BID Qty: 30 0RF naproxen 500 mg tablet 500 mg PO BID PRN (Reason: pain) 7 Days Qty: 14 0RF famotidine 20 mg tablet 20 mg PO DAILY Qty: 30 0RF dicyclomine 20 mg tablet 20 mg PO TID PRN (Reason: abdominal pain) Qty: 30 0RF ondansetron 4 mg tablet,disintegrating 4 mg PO Q8H PRN (Reason: nausea and vomiting) Qty: 10 0RF Follow-up/Referrals: Brandi,Nimco Bob APN [Primary Care Provider] - Time of Disposition: 13:52 Quality Mariaa Coma Scale Eyes: Open Verbal: Oriented and Alert Motor: Follows Commands Mariaa Coma Total Score: 15
== END 2024-10-02 13:50 | disposition left against medical advice (07) ==
PROVIDERS: Emergency Provider Registered Nurse; PCP Nurse Practitioner Family
DX: E13.65 Other specified diabetes mellitus with hyperglycemia (principal); R42 Dizziness and giddiness; Z91.141 Patient's other noncompliance with medication regimen due to financial hardship; F17.290 Nicotine dependence, other tobacco product, uncomplicated; J45.909 Unspecified asthma, uncomplicated; K21.9 Gastro-esophageal reflux disease without esophagitis; E66.01 Morbid (severe) obesity due to excess calories; Z68.44 Body mass index [BMI] 60.0-69.9, adult; Z86.2 Personal history of diseases of the blood and blood-forming organs and certain disorders involving the immune mechanism
CPT/HCPCS: 82948; 99213; G0463

== ENCOUNTER 2025-01-08 10:24 | Emergency (ER) | payer OTHER, SELFPAY ==
[2025-01-08 10:31] VITALS: BP 140/59; PULSE 88; RESP 18; TEMP 36.7; O2SAT 100
--- NOTE | 2025-01-08 10:44 | PC.NURSE ---
Bertha KOHLI called and activated at 1041 [facility] called and activated at 1042
--- OUTSIDE RECORDS SUMMARY | 2025-01-08 11:16 | XMS_ITS | Clinical Summary ---
Author Organization [facility] Address [address] [place] [address] Phone Care Team Providers Care Manager Insurance Name Role Phone Leslie Avila APRN, SHAINA Unavailable Nimco Paz APRN, CNP Primary Care Provider [phone] Allergies Active Allergy Reactions Criticality Noted Date [...] 80 2024 10:40 AM CDT Temperature 36.2 C (97.1 F) 2024 10:40 AM CDT Respiratory Rate 18 2024 10:4 0 AM CDT Oxygen Saturation 97% 2024 10: 40 AM CDT Inhaled Oxygen Concentration - - Weight 192.1 kg (423 lb 9.6 oz) 024 10:40 AM CDT Height 162.6 cm (5' 4) 2024 10:4 0 AM CDT Body Mass [...] this topic Insurance MEDICAID MUÑOZ Care Teams Manager Insurance Relationship Specialty Start Date End Date Nimco Paz APRN, CUT AND COVER LINE WORKER [address] [place] [address] PCP - General Family Medicine 12/14/23 Leslie Avila APRN, CUT AND COVER LINE WORKER #[address] [facility] [address] [address] Nurse Practitioner Advanced Practice Nurse 04/30/23
--- OUTSIDE RECORDS SUMMARY | 2025-01-08 11:16 | XMS_ITS | Encounter Summary ---
Author Organization [facility] Address [address] [place] [address] Phone Care Team Providers Care Wiring Technician Name Role Phone Leslie Avila APRN, CNP Unavailable [phone] Nimco Paz APRN, CNP Primary Care Provider [phone] Reason for Visit * Reason Comments Medication Refill Encounter Details Date Type Department Care Team (Late st Contact Info) Description 01/08/2024 Refill [facility] - Pulmonology & Sleep Medicine - [place] [address] [place] [address] Leslie Avila APRN, CNP #[address] [address] Medication Refill Social History Tobacco Use Types [...] on filedocumented in this encounter Care Teams Wiring Technician Relationship Specialty Start Date End Date Nimco Paz APRN, CNP [address] [address] PCP - General Family Medicine 12/14/23 Leslie Avila APRN, CNP #[address] [address] Nurse Practitioner Advanced Practice Nurse 04/30/23 documented as of this encounter
--- OUTSIDE RECORDS SUMMARY | 2025-01-08 11:16 | XMS_ITS | Referral Summary ---
Author Organization [facility] Address [address] [place] [address] Care Team Providers Care Pressing Machine Tender Name Role Phone Nimco Paz NP Primary [...] afford it without insurance. Forms provided for [employer] patient assistance program. Will try to get [...] her bowel issues flare. 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 Gender Identity Not on file Sexual Orientation Not on file Last Filed Vital Signs Vital Sign Reading Time Taken Comments Blood Pressure 125/86 05/03/2024 2:30 AM CDT Pulse 81 05/03/2024 2:30 AM CDT Temperature 36.9 C (98.5 F) 05/02/2024 8:08 PM CDT Respiratory Rate 19 05/03/2024 1:45 AM CDT Oxygen Saturation 97% 05/03/2024 2:30 AM CDT Inhaled Oxygen Concentration - - Weight 186.9 kg (412 lb) 05/02/2024 8:08 PM CDT Height 162.6 cm (5' 4) 04/05/2024 2:15 PM CDT Body Mass Index [...] 2 diabetes mellitus with hyperglycemia, unspecified whether shelter insulin use (HCC) ALBUMIN CREATININE RATIO, URINE Routine 12/02/2023 11:03 AM CDT Type 2 diabetes mellitus with hyperglycemia, unspecified whether student records specialist insulin use (HCC) DIABETIC EYE EXAM Routine 10/09/2022 from Last 3 Months or Most Recently Relevant to Health Maintenance Results * eGFR (05/02/2024 8:28 PM CDT) eGFR >90 >=60 mL/min/1. 73 m2 Comment: Interpretive Data Reference Interval Normal >/= 90 mL/min/1.73m2 Mildly decreased* 60 - 89 mL/min/1.73m2 Mildly to moderately decreased 45 - 59 mL/min/1.73m2 Moderately to severely decreased 30 - 44 mL/min/1.73m2 Severely decreased 15 - 29 mL/min/1.73m2 Kidney Failure < 15 mL/min/1.73m2 *Relative to young adult level Estimated glomerular filtration rate is determined by the 2020 CKD-EPI equation recommended by the National Kidney Foundation (A Unifying Approach to GFR Estimation: Recommendations of the NKF-ASK Task Force on Reassessing the Inclusion of Race in Diagnosing Kidney Disease, JASN 202). The CKD-EPI equation should not be used for patients with unstable renal function and has not been validated in children and those over 70. Current interpretive data was last reviewed 2021. Blood 05/02/2024 8:28 PM CDT 05/02/2024 9:04 PM CDT us Feliciano Lynch MD LAB BLOOD ORDERABLES Final R esult [facility] [place] [address] * (ABNORMAL) POCT hemoglobin A1c (03/20/2024 10:02 AM CDT) Hemoglobin A1C, POC 9.3 % Blood 03/20/2024 10:0 2 AM CDT April Byrd NP POINT OF CARE TEST ORDERABLES F inal Result * Albumin Creatinine Ratio, Urine (12/02/2023 11:03 AM CDT) Albumin Ur <12.0 mg/L Comment: Interpretive Data No reference range established. Current interpretive data was last revised 2019. Testing performed by: [facility], [address] [place] [address]., [id number] Creatinine Ur 105.0 mg/dL [facility] ([facility]) Comment: Interpretive Data No reference range established. Current interpretive data was last revised 2019. Testing performed by: [facility], [address] [place] [address]., [id number] Albumin Creatinine Ratio, Ur <11 1 - 29 mg/g [facility] ([facility]) Comment:Testing performed by : [facility], [address] [place] [address]., [id number] Urine 12/02/2023 11:0 3 AM CDT 12/02/2023 3:36 PM CDT April Byrd NP LAB URINE ORDERABLES Final Resu lt [facility] 1 [facility] Department [place] [address] * (ABNORMAL) Lipid panel (12/02/2023 11:03 AM CDT) Cholesterol 130 30 - 199 mg/dL Comment: Interpretive Data Ages < or = 19 years Acceptable: <170 mg/dL Borderline high: 170-199 mg/dL High: >or= 200 mg/dL Ages > or = 20 years Desirable: <200 mg/dL Borderline high: 200-239 mg/dL High: >or= 240 mg/dL Literature References: 1. Expert Panel on Integrated Guidelines for Cardiovascular Health and Risk Reduction in Children and Adolescents. Pediatrics 2011;128:S213 2. NCEP Expert Panel. Circulation 2004;110:227 Current Interpretive Data was last revised on 2018. Triglycerides 303(H) <=149 mg/dL [facility] ([facility]) Comment: Interpretive Data Ages < or = 9 years Acceptable: <75 mg/dL Borderline high: 75-99 mg/dL High: >or= 100 mg/dL Ages 10 to 20 years Acceptable: <90 mg/dL Borderline high: 90-129 mg/dL High: >or= 130 mg/dL Ages > or = 20 years Desirable: <150 mg/dL Borderline high: 150-199 mg/dL High: 200-499 mg/dL Very high: >or= 499 mg/dL Literature References: 1. Expert Panel on Integrated Guidelines for Cardiovascular Health and Risk Reduction in Children and Adolescents. Pediatrics 2011;128:S213 2. NCEP Expert Panel. Circulation 2003;110:227 Current Interpretive Data was last revised on 2018. HDL 24(L) >=40 mg/dL [facility] ([facility]) Comment: Interpretive Data Ages < or = 19 years Acceptable: >45 mg/dL Borderline low: 40-45 mg/dL Low: <40 mg/dL Ages > or = 20 years Desirable: >or= 60 mg/dL Low: <40 mg/dL Literature References: 1. Expert Panel on Integrated Guidelines for Cardiovascular Health and Risk Reduction in Children and Adolescents. Pediatrics 2011;128:S213 2. NCEP Expert Panel. Circulation 2004;110:227 Current Interpretive Data was last revised on 2018. LDL, calculated 45 <=129 mg/dL [facility] ([facility]) Comment: Interpretive Data Ages < or = 19 years Acceptable: <110 mg/dL Borderline high: 110-129 mg/dL High: >or= 130 mg/dL Ages > or = 20 years Optimal: <100 mg/dL Near optimal: 100-129 mg/dL Borderline high: 130-159 mg/dL High: >160 mg/dL Literature References: 1. Expert Panel on Integrated Guidelines for Cardiovascular Health and Risk Reduction in Children and Adolescents. Pediatrics 2011;128:S213 2. NCEP Expert Panel. Circulation 2004;110:227 Current Interpretive Data was last revised on 2018. Non-HDL Cholesterol 106 mg/dL [facility] Comment: Interpretive Data Ages < or = 19 years Acceptable: <120 mg/dL Borderline high: 120-144 mg/dL High: >145 mg/dL Ages > or = 20 years When triglycerides are >200 mg/dL, Non-HDL cholesterol is a secondary target of therapy with treatment goals that are 30 mg/dL greater than the LDL cholesterol target. Literature References: 1. Expert Panel on Integrated Guidelines for Cardiovascular Health and Risk Reduction in Children and Adolescents. Pediatrics 2011;128:S213 2. NCEP Expert Panel. Circulation 2004;110:227 Current Interpretive Data was last revised on 2018. Chol/HDL ratio 5 [facility] ([facility]) Blood 12/02/2023 11:0 3 AM CDT 12/02/2023 1:55 PM CDT Narrative [facility] ([facility]) - 12/02/2023 2:25 PM CDT These lab test should be done fasting. This means do not eat or drink for at least 12 hours prior to getting your blood drawn. April Byrd NP LAB BLOOD ORDERABLES Final Resu lt [facility] 1 [facility] [place] [address] * Diabetic Eye Exam (10/09/2022) Historical Provider HEALTH MAINTENANCE Final Result from Last 3 Months or Most Recently Relevant to Health Maintenance Insurance [facility] Advance Directives For more information, please contact: [phone] * Full Code (Latest Code Status on File) Date Activated Date Inactivated Comments 11/15/2023 7:17 AM 11/15/2023 1:35 PM * Full Code Date Activated Date Inactivated Comments 11/15/2023 7:17 AM 11/15/2023 7:17 AM Care Teams Pressing Machine Tender Relationship Specialty Start Date End Date Nimco Paz NP [address] [place] [address] PCP - General 07/08/20
--- OUTSIDE RECORDS SUMMARY | 2025-01-08 11:16 | XMS_ITS | Encounter Summary ---
Author Organization [facility] Address [address] [place] [place] [address] Phone Care Team Providers Care Tennis Ball Coverer Hand Name Role Phone Nimco Paz APRN, SHAINA Primary Care Provider [phone] Melania Woodard MD Primary Care Provide r Leslie Avila APRN, CNP Unavailable Nimco Paz APRN, CNP Primary Care Provider [phone] Reason for Visit * Reason Comments Medication Refill Encounter Details Date Type Department Care Team (Late st Contact Info) Description 05/17/2023 Refill [facility] - Pulmonology & Sleep Medicine [facility] [address] [place] [address] Leslie Avila APRN, CNP #[address] [address] Medication Refill Social History Tobacco Use Types [...] on filedocumented in this encounter Care Teams Tennis Ball Coverer Hand Relationship Specialty Start Date End Date Nimco Paz APRN, PUBLIC HEALTH SANITARIAN TECHNICIAN [address] [place] [id number] PCP - General Family Medicine 06/19/20 09/06/23 Melania Woodard MD [address] [facility] [address] [place] [id number] PCP - General Family Medicine 09/07/23 12/13/23 Nimco Paz APRN, PUBLIC HEALTH SANITARIAN TECHNICIAN [address] [place] [address] PCP - General Family Medicine 12/14/23 Leslie Avila APRN, PUBLIC HEALTH SANITARIAN TECHNICIAN [address] [place] [address] [address] Nurse Practitioner Advanced Practice Nurse 04/30/23 documented as of this encounter
--- OUTSIDE RECORDS SUMMARY | 2025-01-08 11:16 | XMS_ITS | Clinical Summary ---
Author Organization [facility] Address [address] [place] [address] Care Team Providers Care Clothing Sorter Name Role Phone Nimco Paz NP Primary Care Provider Allergies Active Allergy Reactions Criticality Noted Date Comments Haloperidol Vomiting Low 09/18/2021 Metformin Anaphylaxis High 09/18/2021 Terbutaline Venom-Wasp Venom-Yellow Jacket Medications hydroCHLOROthiaz mirta (HYDRODIURIL) 12.5 mg tablet Take 2 tablets [...] afford it without insurance. Forms provided for [employer] patient assistance program. Will try to get [...] her bowel issues flare. 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 Gender Identity Not on file Sexual Orientation [...] Depression Screening 1986 Hepatitis C Screening 1986 Varicella Vaccines (1 of 2 - 13+ 2-dose series) 1999 DTaP/Tdap/Td Vaccine (1 - Tdap) 05/26/2000 05/25/2000 Regular Well Visit/Exam 18-64 01/19/2004 Pneumococcal vaccine <65 (1 of 2 - PCV) 2005 Hemoglobin A1C 09/20/2024 03/20/2024, 12/02/2023 Dilated Eye Exam 10/09/2024 10/09/2022 Albumin Creatinine Ratio, Urine 12/01/2024 12/02/2023 Lipid Panel 12/01/2024 12/02/2023 Foot Exam 04/05/2025 04/05/2024 eGFR 05/02/2025 05/02/2024, 04/2 05/2024, 12/02/2023, Additional history exists Influenza Vaccine (Season Ended) 2025 06/11/2021, 06/06/2020, 06/06/2019, Additional history exists Hepatitis B Screening Completed 05/25/2000 Covid-19 Vaccine Discontinued 04/23/2021 HPV Vaccines Aged [...] hyperglycemia, unspecified whether shelter insulin use (HCC) DIABETIC EYE EXAM Routine [...] LAB BLOOD ORDERABLES Final R esult OSVALDO CAMARA [place]) 1 [facility] Department [place] [address] * (ABNORMAL) POCT hemoglobin A1c (03/20/2024 10:02 AM CDT) Hemoglobin A1C, POC 9.3 % Blood 03/20/2024 10:0 2 AM CDT April Byrd NP POINT OF CARE TEST ORDERABLES F inal Result * Albumin Creatinine Ratio, Urine (12/02/2023 11:03 AM CDT) Albumin Ur <12.0 mg/L Comment: Interpretive Data No reference range established. Current interpretive data was last revised 2019. Testing performed by: [address] [address] Creatinine Ur 105.0 mg/dL OSVALDO CAMARA (JUWAN) Comment: Interpretive Data No reference range established. Current interpretive data was last revised 2019. Testing performed by: [address] [address] Albumin Creatinine Ratio, Ur <11 1 - 29 mg/g OSVALDO CAMARA (JUWAN) Comment:Testing performed by : [address] [address] Urine 12/02/2023 11:0 3 AM CDT 12/02/2023 3:36 PM CDT April Byrd NP LAB URINE ORDERABLES Final Resu lt JUANHEVER CAMARA ([place]) 1 [facility] Department [place] [address] * (ABNORMAL) Lipid panel (12/02/2023 11:03 AM [...] Final Resu lt OSVALDO JAX (JUWAN) 1 [facility] Department [place] [address] * Diabetic Eye Exam (10/09/2022) Historical Provider HEALTH MAINTENANCE Final Result from Last 3 Months or Most Recently Relevant to Health Maintenance Insurance [facility] Advance Directives For more information, please contact: [phone] * Full Code (Latest Code Status on File) Date Activated Date Inactivated Comments 11/15/2023 7:17 AM 11/15/2023 1:35 PM * Full Code Date Activated Date Inactivated Comments 11/15/2023 7:17 AM 11/15/2023 7:17 AM Care Teams Clothing Sorter Relationship Specialty Start Date End Date Nimco Paz NP [address] [place] [address] PCP - General 07/08/20
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
--- NOTE | 2025-01-08 15:16 | PC.NURSE ---
Pt refused shower, said she will one at home.
--- OUTSIDE RECORDS SUMMARY | 2025-01-08 15:56 | XMS_ITS | Clinical Summary ---
Author Organization [facility] Address [address] [place] [address] Phone Care Team Providers Care Cigar Making Machine Operator Name Role Phone Leslie Avila APRN, SHAINA Unavailable Nimco Paz APRN, CNP Primary Care Provider [phone] Allergies Active Allergy Reactions Criticality Noted Date [...] this topic Insurance MEDICAID MUÑOZ Care Teams Cigar Making Machine Operator Relationship Specialty Start Date End Date Nimco Paz APRN, SPORTS ANALYST [address] [place] [address] PCP - General Family Medicine 12/14/23 Leslie Avila APRN, SPORTS ANALYST #2 [facility] RYAN [address] [address] Nurse Practitioner Advanced Practice Nurse 04/30/23
--- OUTSIDE RECORDS SUMMARY | 2025-01-08 15:56 | XMS_ITS | Encounter Summary ---
Author Organization [facility] Address [address] [place] [address] Phone Care Team Providers Care Renderer Name Role Phone Leslie Avila APRN, CNP Unavailable Nimco Paz APRN, CNP Primary Care Provider [phone] Reason for Visit * Reason Comments Medication Refill Encounter Details Date Type Department Care Team (Late st Contact Info) Description 01/08/2024 Refill [facility] - Pulmonology & Sleep Medicine - [place] [address] [place] [address] Leslie Avila APRN, CNP #[address] [address] Medication Refill Social History Tobacco Use Types [...] on filedocumented in this encounter Care Teams Renderer Relationship Specialty Start Date End Date Nimco Paz APRN, CNP [address] [address] PCP - General Family Medicine 12/14/23 Leslie Avila APRN, CNP #[address] [address] Nurse Practitioner Advanced Practice Nurse 04/30/23 documented as of this encounter
--- OUTSIDE RECORDS SUMMARY | 2025-01-08 15:56 | XMS_ITS | Referral Summary ---
Author Organization [facility] Address [address] [place] [address] Care Team Providers Care Helmet Hat Puncher Name Role Phone Nimco Paz NP Primary Care Provider [phone] Allergies Active Allergy Reactions Criticality Noted Date [...] afford it without insurance. Forms provided for [employer] patient assistance program. Will try to get [...] her bowel issues flare. 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 Gender Identity Not on file Sexual Orientation [...] 2 diabetes mellitus with hyperglycemia, unspecified whether fpc insulin use (HCC) ALBUMIN CREATININE RATIO, URINE Routine 12/02/2023 11:03 AM CDT Type 2 diabetes mellitus with hyperglycemia, unspecified whether long term care administrator insulin use (HCC) DIABETIC EYE EXAM Routine [...] BLOOD ORDERABLES Final R esult [facility] LOVELL 1 [facility] [place] [address] * (ABNORMAL) POCT hemoglobin A1c (03/20/2024 10:02 AM CDT) Hemoglobin A1C, POC 9.3 % Blood 03/20/2024 10:0 2 AM CDT April Byrd NP POINT OF CARE TEST ORDERABLES F inal Result * Albumin Creatinine Ratio, Urine (12/02/2023 11:03 AM CDT) Albumin Ur <12.0 mg/L Comment: Interpretive Data No reference range established. Current interpretive data was last revised 2019. Testing performed by: [facility], [address] [place] [address]., [id number] Creatinine Ur 105.0 mg/dL OSVALDO CAMARA (JUWAN) Comment: Interpretive Data No reference range established. Current interpretive data was last revised 2019. Testing performed by: [facility], [address] [place] [address]., [id number] Albumin Creatinine Ratio, Ur <11 1 - 29 mg/g OSVALDO CAMARA (JUWAN) Comment:Testing performed by : [facility], [address] [place] [address]., [id number] Urine 12/02/2023 11:0 3 AM CDT 12/02/2023 3:36 PM CDT April Byrd NP LAB URINE ORDERABLES Final Resu lt OSVALDO CAMARA ([place]UWAN) 1 [facility] Department [place] [address] * (ABNORMAL) Lipid panel (12/02/2023 11:03 AM [...] 2018. Non-HDL Cholesterol 106 mg/dL OSVALDO CAMARA ([place]) Comment: Interpretive Data Ages < or = [...] on 2018. Chol/HDL ratio 5 TORY CAMARA (LOVELL) Blood 12/02/2023 11:0 3 AM CDT 12/02/2023 1:55 PM CDT Narrative OSVALDO CAMARA ([place]OVE[place]) - 12/02/2023 2:25 PM CDT These lab test should be done fasting. This means do not eat or drink for at least 12 hours prior to getting your blood drawn. April Byrd NP LAB BLOOD ORDERABLES Final Resu lt OSVALDO CAMARA (JUWAN) 1 [facility] Department [place] [address] * Diabetic Eye Exam (10/09/2022) Historical Provider HEALTH MAINTENANCE Final Result from Last 3 Months or Most Recently Relevant to Health Maintenance Insurance [facility] Advance Directives For more information, please contact: [phone] * Full Code (Latest Code Status on File) Date Activated Date Inactivated Comments 11/15/2023 7:17 AM 11/15/2023 1:35 PM * Full Code Date Activated Date Inactivated Comments 11/15/2023 7:17 AM 11/15/2023 7:17 AM Care Teams Helmet Hat Puncher Relationship Specialty Start Date End Date Nimco Paz NP [address] [place] [address] PCP - General 07/08/20
--- OUTSIDE RECORDS SUMMARY | 2025-01-08 15:56 | XMS_ITS | Clinical Summary ---
Author Organization [facility] Address [address] [place] [address] Care Team Providers Care Demonstrator Sales Name Role Phone Nimco Paz NP Primary [...] afford it without insurance. Forms provided for [employer] patient assistance program. Will try to get [...] her bowel issues flare. 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 Gender Identity Not on file Sexual [...] 2 diabetes mellitus with hyperglycemia, unspecified whether assisted insulin use (HCC) ALBUMIN CREATININE RATIO, URINE Routine 12/02/2023 11:03 AM CDT Type 2 diabetes mellitus with hyperglycemia, unspecified whether assisted insulin use (HCC) DIABETIC EYE EXAM Routine [...] BLOOD ORDERABLES Final R esult OSVALDO CAMARA [place]) 1 [facility] [place] [address] * (ABNORMAL) POCT hemoglobin A1c (03/20/2024 10:02 AM CDT) Hemoglobin A1C, POC 9.3 % Blood 03/20/2024 10:0 2 AM CDT April Byrd NP POINT OF CARE TEST ORDERABLES F inal Result * Albumin Creatinine Ratio, Urine (12/02/2023 11:03 AM CDT) Albumin Ur <12.0 mg/L Comment: Interpretive Data No reference range established. Current interpretive data was last revised 2019. Testing performed by: [address] [address] Creatinine Ur 105.0 mg/dL OSVALDO CAMARA (JUWAN) Comment: Interpretive Data No reference range established. Current interpretive data was last revised 2019. Testing performed by: [address] [address] Albumin Creatinine Ratio, Ur <11 1 - 29 mg/g OSVALDO CAMARA (JUWAN) Comment:Testing performed by : [address] [address] Urine 12/02/2023 11:0 3 AM CDT 12/02/2023 3:36 PM CDT April Byrd NP LAB URINE ORDERABLES Final Resu lt JUANHEVER CAMARA ([place]) 1 [facility] [place] [address] * (ABNORMAL) Lipid panel (12/02/2023 11:03 AM [...] Final Resu lt OSVALDO JAX (JUWAN) 1 [facility] [place] [address] * Diabetic Eye Exam (10/09/2022) Historical Provider HEALTH MAINTENANCE Final Result from Last 3 Months or Most Recently Relevant to Health Maintenance Insurance [facility] Advance Directives For more information, please contact: [phone] * Full Code (Latest Code Status on File) Date Activated Date Inactivated Comments 11/15/2023 7:17 AM 11/15/2023 1:35 PM * Full Code Date Activated Date Inactivated Comments 11/15/2023 7:17 AM 11/15/2023 7:17 AM Care Teams Demonstrator Sales Relationship Specialty Start Date End Date Nimco Paz NP [address] [place] [address] PCP - General 07/08/20
--- OUTSIDE RECORDS SUMMARY | 2025-01-08 15:56 | XMS_ITS | Encounter Summary ---
Author Organization [facility] Address [address] [place] [address] Phone Care Team Providers Care Mechanism Assembler Name Role Phone Nimco Paz APRN, SHAINA Primary Care Provider [phone] Melania Woodard MD Primary Care Provide r Leslie Avila APRN, CNP Unavailable [phone] Nimco Paz APRN, CNP Primary Care Provider [phone] Reason for Visit * Reason Comments Medication Refill Encounter Details Date Type Department Care Team (Late st Contact Info) Description 05/17/2023 Refill [facility] - Pulmonology & Sleep Medicine [facility] [address] [place] [address] Leslie Avila APRN, CNP #[address] [address] Medication Refill Social History Tobacco Use Types [...] on filedocumented in this encounter Care Teams Mechanism Assembler Relationship Specialty Start Date End Date Nimco Paz APRN, RETAIL ADVERTISING ACCOUNT EXECUTIVE [address] [place] [address] PCP - General Family Medicine 06/19/20 09/06/23 Melania Woodard MD [address] [facility] [address] [place] [address] PCP - General Family Medicine 09/07/23 12/13/23 Nimco Paz APRN, RETAIL ADVERTISING ACCOUNT EXECUTIVE [address] [place] [address] PCP - General Family Medicine 12/14/23 Leslie Avila APRN, RETAIL ADVERTISING ACCOUNT EXECUTIVE #[address] [address] Nurse Practitioner Advanced Practice Nurse 04/30/23 documented as of this encounter
== END 2025-01-08 15:17 | disposition home or self-care (01) ==
LOC: ANHED 15:14
PROVIDERS: Emergency Provider Emergency Medicine; PCP Nurse Practitioner Family
DX: T74.21XA Adult sexual abuse, confirmed, initial encounter (principal); Z79.4 Long term (current) use of insulin; E11.9 Type 2 diabetes mellitus without complications; J45.909 Unspecified asthma, uncomplicated; K21.9 Gastro-esophageal reflux disease without esophagitis; F17.210 Nicotine dependence, cigarettes, uncomplicated; F17.290 Nicotine dependence, other tobacco product, uncomplicated
CPT/HCPCS: 99285

== ENCOUNTER 2025-05-29 10:57 | Emergency (ER) | payer SELFPAY ==
[2025-05-29] VITALS (9 sets, daily range): BP systolic 100–170; BP diastolic 61–92; PULSE 88–99; RESP 10–24; TEMP 36.6–36.7; O2SAT 96–100
--- NOTE | ~2025-05-29 | XR_ITS ---
EXAMINATION: XR chest 2V, 05/29/2025 12:14 CDT HISTORY: cp COMPARISON: No comparisons available. Technique: 2 views obtained. Findings: The lungs are clear, no effusion. No pneumothorax. Heart is normal size. Mediastinal and hilar contours are within normal limits. Bony thorax no acute abnormality. Impression: No acute cardiopulmonary abnormality. Reviewed, dictated and finalized at location A. Impression: No acute cardiopulmonary abnormality.
--- NOTE | ~2025-05-29 | CT_ITS ---
Exam: CT chest with contrast Clinical History: [Chest pain radiating to the back. Vomiting. ] Comparison: [ None available] Technique: Multiple axial CT images of the chest with IV contrast. Sagittal and coronal reformatted images were obtained. FINDINGS: Lungs and pleura: [ No pneumothorax. No pleural effusion. No free air under the diaphragm.] There is a 4 mm pulmonary nodule in the right middle lobe. Mediastinum and pulmonary cayla: [ No mass or adenopathy.] Axillary/intramammary and supraclavicular: [ No mass or adenopathy.] Heart and great vessels: [ Normal heart size.[ [ Small pericardial effusion.] [ No aneurysm.] Chest Wall: [ Unremarkable.] Upper Abdomen: Cholecystectomy Osseous structures: [ No acute fracture or destructive lesion.] [ Multilevel degenerative change in the visualized spine.] Additional findings: [ None of significance.] IMPRESSION: 1. No CT evidence for an acute process in the chest at this time. 2. There is a 4 mm pulmonary nodule in the right middle lobe. A follow-up chest CT in 6 months is recommended. 3. Cholecystectomy. Reviewed, dictated and finalized at location Q.
--- NOTE | 2025-05-29 10:58 | ECG_ITS ---
Test Date: 2025-05-29 11:04:23 Measurements Intervals [place] Rate: 97 P: 47 VA: 166 QRS: -24 QRSD: 90 T: 30 QT: 344 QTc: 437 Interpretive Statements SINUS RHYTHM LOW QRS VOLTAGE IN PRECORDIAL LEADS [QRS DEFLECTION < 1.0 mV IN CHEST LEADS] POOR R-WAVE PROGRESSION BORDERLINE ECG Compared to ECG 08/17/2024 12:18:27 NO DIFFERENCE Electronically Signed On 05-29-2025 12:37:00 CDT by Ap Magaña M.D.
[2025-05-29] MEDS: ASPIRIN 81 MG CHEWABLE TABLET 324 MG PO (11:34)
[2025-05-29 11:37] LABS: Hematocrit 41.9 % (37.0-47.0); Hemoglobin 13.4 g/dL (12.0-15.0); Immature Granulocyte Percent A 0.5 % (0-0.5); Lymphocytes Absolute Auto 2.31 K/mm3 (0.9-3.2); Mean Corpuscular HGB Conc 32.0 g/dl (32-36); Mean Corpuscular Hemoglobin 26.7 pg (26-34); Mean Corpuscular Volume 83.6 fl (80-100); Nucleated Red Blood Cells Absolute Auto 0.000 K/mm3 (0.0-0.012); Nucleated Red Blood Cells Perc 0.0 % (0.0-0.2); Platelet Count Result 419 k/mm3 (150-375); Red Blood Count 5.01 M/mm3 (4.2-5.4); White Blood Count 11.1 K/mm3 (4.5-10.0)
--- OUTSIDE RECORDS SUMMARY | 2025-05-29 11:44 | XMS_ITS | Encounter Summary ---
Author Organization [facility] Address [address] [place] [address] Phone Care Team Providers Care Chiropractic Neurologist Name Role Phone Leslie Avila APRN, CNP Unavailable Nimco Paz APRN, CNP Primary Care Provider [phone] Reason for Visit * Reason Comments Medication Refill Encounter Details Date Type Department Care Team (Late st Contact Info) Description 01/08/2024 Refill [facility] - Pulmonology & Sleep Medicine - [place] [address] [place] [address] Leslie Avila APRN, CNP #[address] [address] Medication Refill Social History Tobacco Use Types [...] APRN, CNP [facility] 04/30/23 Office Visit Leslie Avila APRN, CNP [facility] Showing recent visits within past 365 [...] on filedocumented in this encounter Care Teams Chiropractic Neurologist Relationship Specialty Start Date End Date Nimco Paz APRN, CNP #[address] [address] PCP - General Family Medicine 12/14/23 Leslie Avila APRN, CNP #[address] [address] Nurse Practitioner Advanced Practice Nurse 04/30/23 documented as of this encounter
--- OUTSIDE RECORDS SUMMARY | 2025-05-29 11:44 | XMS_ITS | Clinical Summary ---
Author Organization [facility] Address [address] [place] [address] Care Team Providers Care Crown And Bridge Technician Name Role Phone Nimco Paz NP Primary Care Provider Summer Watts MD Unavailable [phone] Allergies Active Allergy Reactions Criticality Noted Date Comments Haloperidol Vomiting Low 09/18/2021 Metformin Anaphylaxis High 09/18/2021 Terbutaline Venom-Wasp Venom-Yellow Jacket Medications hydroCHLOROthiaz mitra (HYDRODIURIL) 12.5 mg tablet Take 4 tablets (50 mg total) by mouth daily 8 Active dicyclomine (BENTYL) 20 mg tabletIndication s:Abdominal Pain with Cramps Take 1 tablet (20 mg total) by mouth 2 (two) times a day 30 tablet 0 Active Additional Information Patient taking differently: 40 mgoral 2 times daily, Indications: Abdominal Pain with Cramps, Reported on 03/07/2025 baclofen (LIORESAL) 10 mg tablet Take 4 tablets (40 mg total) by mouth 2 (two) times a day 1 Active atenoloL (TENORMIN) 25 mg tabletIndication s:tachycardia Take 1 tablet (25 mg total) by mouth nightly Active busPIRone (BUSPAR) 7.5 mg tablet Take 2 tablets (15 mg total) by mouth daily [address] (VOLTAREN) 50 mg EC tablet Take 2 tablets (100 mg total) by mouth 2 (two) times a day 2 Active atorvastatin (LIPITOR) 10 mg tabletIndication s:pt unsure if she takes Take 1 tablet (10 mg total) by mouth daily 3 Active ipratropium-albu teroL (DUO-NEB) 0.5-2.5 mg/3 mL nebulizer solution INHALE 3 ML BY NEBULIZATION ROUTE 4 TIMES DAILY 4 Active irbesartan (AVAPRO) 150 mg tablet Take 1 tablet (150 mg total) by mouth daily 4 Active traZODone (DESYREL) 150 mg tablet Take 1 tablet (150 mg total) by mouth nightly at bedtime 4 Active mometasone-formo terol (DULERA 100) 100-5 mcg/actuation inhaler INHALE 2 PUFFS BY MOUTH EVERY 12 HOURS. Active famotidine (PEPCID) 40 mg tablet Take 1 tablet (40 mg total) by mouth daily 90 tablet 4 Active naproxen (NAPROSYN) 500 mg tablet TAKE 1 TABLET ORAL ROUTE 2 TIMES PER DAY TAKE WITH FOOD 5 Active glimepiride (AMARYL) 4 mg tablet Take 1 tablet (4 mg total) by mouth daily E11.65 90 tablet 4 5 Active Additional Information Patient taking differently: 8 mgoral Daily, E11.65,Indications: type 2 diabetes mellitus, Informant: Self, Reported on 03/07/2025 sertraline (ZOLOFT) 50 mg tabletIndication s:depression Take 1 tablet (50 mg total) by mouth daily Active insulin regular U-500 (HumuLIN R) 500 unit/mL (3 mL) CONCENTRATED pen for injection Inject 45 Units under the skin 2 (two) times a day 5.4 mL 5 Active pen needle, diabetic 32 gauge x 5/32 needle Use as directed 3 times a day 100 each 5 Active blood-glucose meter kit Use as directed. 1 kit 5 Active blood glucose diagnostic (glucose blood) strip Use as directed up to four times a day. 100 each 1 5 Active lancets misc Use as directed up to 4 times a day. 100 each 1 5 Active alcohol swabs (Alcohol Wipes) pads, medicated Use as directed. 100 each 5 Active metoclopramide (REGLAN) 10 mg tablet Take 1 tablet (10 mg total) by mouth every 6 (six) hours for 5 days 20 tablet 5 Active traMADoL (ULTRAM) 50 mg tablet Take 1 tablet (50 mg total) by mouth every 6 (six) hours 12 tablet 5 Active ondansetron (ZOFRAN) 4 mg tablet Take 1 tablet (4 mg total) by mouth every 6 (six) hours 12 tablet 5 Active Active Problems Problem Noted Date Diagnosed Date Cellulitis of groin 03/06/2025 Type 2 diabetes mellitus wit h hyperglycemia, [...] afford it without insurance. Forms provided for [employer] patient assistance program. Will try to get [...] mg weekly Monitor blood sugar continuously with audra 3 cgm. Encouraged annual eye exam. Monofilament [...] her bowel issues flare. Ambulatory referral to [facility] medical weight management clinic She has consider bariatric [...] (10/15/2021): Added automatically from request for surgery [id number] Encounters Date Type Department Care Team Description 04/28/2025 1:23 PM CDT - 04/28/2025 6:22 PM CDT Emergency [facility] Emergency Department [address] [place] [address] Feliciano Lynch MD Adnexal mass (Primary Dx); Chronic abdominal pain; Decreased appetite Discharge Disposition: Discharge to home or self care 04/25/2025 8:38 AM CDT - 04/25/2025 11:42 AM CDT Emergency [facility] Emergency Department [address] [place] [address] Viral gastroenteritis (Primary Dx) Discharge Disposition: Discharge to home or self care 03/06/2025 8:47 PM CDT - 03/07/2025 5:30 PM CDT Hospital Encounter [facility] [address] [place] [address] Denny Blackburn MD Taylor, MD Mira Dunbar Nazanin, MD Cellulitis of groin (Primary Dx); Hyperglycemia due to diabetes mellitus (HCC) Discharge Disposition: Discharge to home or self care from Last 3 Months Surgical History Surgery Date Site/Laterality Comments CHOLECYSTECTOMY 09/06/2011 - 09/05/2012 SECTION 2 c-sections HEMORRHOID SURGERY 11/06/2021 COLONOSCOPY 09/06/2017 - 09/05/2018 COLONOSCOPY 09/06/2020 - 09/05/2021 Medical History Medical History Date Comments Asthma Cholecystitis 2011 HTN (hypertension) Anxiety Diabetes mellitus (HCC) Type 2 diabetes mellitus Depression Arrhythmia irregular heart beat GERD (gastroesophageal [...] drink = 0.6 oz pur e alcohol) Zero Motorcycles Utilities Answer Date Recorded In the past 12 months has [employer], gas, oil, or water [employer] threatened to shut off services in your home? Yes 03/07/2025 Social Connection and Isolation Panel Answer Date Recorded In a typical week, how many times do you talk on the phone with family, friends, or neighbors? More than three times a week 03/07/2025 How often do you get togethe r with friends or relatives? More than three times a week 03/07/2025 How often do you attend chur ch or rastafarian services? Never 03/07/2025 Do you belong to any clubs o r organizations such as lutheran groups, unions, fraternal or athletic groups, or school groups? No 03/07/2025 How often do you attend meet ings of the clubs or organizations you belong to? Never 03/07/2025 Are you , , di vorced, , never , or living with a partner? 03/07/2025 AUDIT-C Answer Date Recorded Q1: How often do you have a drink containing alc ohol? Never 11/06/2021 Average Number of Drinks Not on file 022 Frequency of Binge Drinking Not on file 11/2021 Overall Financial Resource Strain (CARDIA) Answe r Date Recorded How hard is it for you to pa y for the very basics like food, housing, medical care, and heating? Hard 03/07/2025 Hunger Vital Sign Answer Date Recorded Within the past 12 months, y ou worried that your food would run out before you got the money to buy more. Often true 03/07/20 25 Within the past 12 months, t he food you bought just didn't last and you didn't have money to get more. Often true 03/07/2025 PRAPARE - Transportation Answer Date Re corded In the past 12 months, has l ack of transportation kept you from medical appointments or from getting medications? No 10/2024 In the past 12 months, has l ack of transportation kept you from meetings, work, or from getting things needed for daily living? No 03/07/2025 Housing Stability Vital Sign Answer Larry e Recorded In the last 12 months, was t here a time when you were not able to pay the mortgage or rent on time? Yes 03/07/2025 In the past 12 months, how m any times have you moved where you were living? 0 03/07/2025 At any time in the past 12 m [facility], were you homeless or living in a jail (including now)? Yes 03/07/2025 Personal Safety Answer Date Recorded Have you ever been in or are you currently in a harmful physical or emotional relationship or is someone making you feel afraid or unsafe? 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 Gender Identity Not on file Sexual Orientation Not on file Obstetrics History Last Filed Vital Signs Vital Sign Reading Time Taken Comments Blood Pressure 149/89 04/28/2025 6:00 PM CDT Pulse 83 04/28/2025 6:00 PM CDT Temperature 36.8 C (98.2 F) 04/28/2025 12:56 PM CDT Respiratory Rate 29 04/28/2025 6:00 PM CDT Oxygen Saturation 96% 04/28/2025 6:00 PM CDT Inhaled Oxygen Concentration - - Weight 165.6 kg (365 lb) 04/28/2025 2:14 PM CDT Height 162.6 cm (5' 4) 04/28/2025 12:56 PM CDT Body Mass Index 62.65 04/28/2025 12:56 PM CDT Plan of Treatment Health Maintenance Due Date Last Done Comments Cervical Cancer Screening 1986 Depression Screening 1986 Hepatitis C Screening 1986 Varicella Vaccines (1 of 2 - 13+ 2-dose series) 1999 DTaP/Tdap/Td Vaccine (1 - Tdap) 05/26/2000 0 Regular Well Visit/Exam 18-64 01/19/2004 Pneumococcal vaccine <65 (1 of 2 - PCV) 2005 HPV Vaccines (1 - 3-dose SCD M series) 2013 Dilated Eye Exam 10/09/2024 10/09/2022 Albumin Creatinine Ratio, Urine 12/01/2024 Lipid Panel 12/01/2024 12/02/2023 Foot Exam 04/05/2025 04/05/2024 Influenza Vaccine (#1) 2025 , 06/06/2020, 06/06/2019, Additional history exists Hemoglobin A1C 08/09/2025 02/07/2025, 0701/2024, 12/02/2023 eGFR 04/28/2026 04/28/2025, 08/, 03/07/2025, Additional history exists Hepatitis B Screening Completed 05/25/2000 Covid-19 Vaccine Discontinued 05/29/2021, , 04/23/2021 Procedures Procedure Name Priority Date/Time Associated Diagnosis Comments CT ABDOMEN PELVIS W CONTRAST ED 04/28/2025 5:18 PM CDT D-DIMER, QUANTITATIVE Add-On 04/28/2025 2:59 PM CDT TROPONIN T HIGH-SENSITIVITY 2-HOUR Timed 04/28/2025 2:59 PM CDT XR SPINE LUMBAR 2 OR 3 VIEWS ED 04/28/2025 2:26 PM CDT XR CHEST PA LATERAL 2 VIEWS ED 04/28/2025 2:26 PM CDT EGFR STAT 04/28/2025 1:08 PM CDT DIFFERENTIAL AUTO STAT 04/28/2025 1:0 8 PM CDT TROPONIN T HIGH-SENSITIVITY SERIES (BASELINE, 2HR, 4HR, 6HR) STAT 04/28/2025 1:08 PM CDT LIPASE STAT 04/28/2025 1:08 PM CDT COMPREHENSIVE METABOLIC PANEL STAT 04/28/2025 1:08 PM CDT CBC WITH AUTO DIFFERENTIAL STAT 04/28/2025 1:08 PM CDT ECG 12-LEAD STAT 04/28/2025 1:07 PM CDT URINALYSIS, MICROSCOPIC ONLY STAT 04/25/2025 11:14 AM CDT URINALYSIS AND REFLEX TO MICROSCOPIC AND CULTURE STAT 04/25/2025 11:[address] ABDOMEN PELVIS W CONTRAST ED 04/25/2025 10:25 AM CDT HCG, BLOOD, QUANTITATIVE STAT 04/25/2025 8:52 AM CDT EGFR STAT 04/25/2025 8:52 AM CDT DIFFERENTIAL AUTO STAT 04/25/2025 8:5 2 AM CDT TROPONIN T HIGH-SENSITIVITY STAT 04/25/2025 8:52 AM CDT LIPASE STAT 04/25/2025 8:52 AM CDT CBC WITH AUTO DIFFERENTIAL STAT 04/25/2025 8:52 AM CDT COMPREHENSIVE METABOLIC PANEL STAT 04/25/2025 8:52 AM CDT ECG 12-LEAD STAT 04/25/2025 8:51 AM CDT POCT GLUCOSE DEVICE Routine 03/07/2025 5 :01 PM CDT TROPONIN T HIGH-SENSITIVITY Add-On 03/07/2025 11:52 AM CDT POCT GLUCOSE DEVICE Routine 03/07/2025 1 1:33 AM CDT POCT GLUCOSE DEVICE Routine 03/07/2025 8 :04 AM CDT EGFR Routine 03/07/2025 5:30 AM CDT DIFFERENTIAL AUTO Routine 03/07/2025 5:3 0 AM CDT COMPREHENSIVE METABOLIC PANEL Routine 03/07/2025 5:30 AM CDT CBC WITH AUTO DIFFERENTIAL Routine 03/07/2025 5:30 AM CDT POCT GLUCOSE DEVICE Routine 03/07/2025 5 :14 AM CDT POCT GLUCOSE DEVICE Routine 03/07/2025 2 :15 AM CDT POCT GLUCOSE DEVICE Routine 03/06/2025 1 1:56 PM CDT AEROBIC CULTURE AND GRAM STAIN Routine 03/06/2025 10:49 PM CDT EGFR Add On 03/06/2025 9:18 PM CDT DIFFERENTIAL AUTO Add On 03/06/2025 9:1 8 PM CDT CRP (ACUTE PHASE) Add-On 03/06/2025 9:1 8 PM CDT COMPREHENSIVE METABOLIC PANEL Add-On 03/06/2025 9:18 PM CDT CBC WITH AUTO DIFFERENTIAL Add-On 03/06/2025 9:18 PM CDT POCT HEMOGLOBIN A1C Routine 02/07/2025 3 :57 PM CDT Type 2 diabetes mellitus with hyperglycemia, with long-term current use of insulin (HCC) LIPID PANEL Routine 12/02/2023 11:03 AM CDT Type 2 diabetes mellitus with hyperglycemia, unspecified whether assisted insulin use (HCC) ALBUMIN CREATININE RATIO, URINE Routine 12/02/2023 11:03 AM CDT Type 2 diabetes mellitus with hyperglycemia, 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 Reconstructed coronal and sagittal MPR images reviewed. All images stored on PACS. Automated exposure control was used as a dose optimization technique for this examination. CONTRAST TYPE/DOSE: 100mL of IOVERSOL 350 MG IODINE/ML INTRAVENOUS SYRINGE injected COMPARISON: 04/25/2025 FINDINGS: LOWER CHEST: Mild scattered subsegmental atelectasis. Mosaic pattern attenuation in both lungs can be seen with small airways disease and less likely small vessels disease. Pleural effusion. Imaged portions of the heart and esophagus are within normal limits. LIVER: Normal size. No identified cystic or solid masses. Mild hepatic steatosis. Portal veins are patent. GALLBLADDER: Prior cholecystectomy. BILE DUCTS: Mild intra and extrahepatic biliary ductal dilatation with tapering of the common bile duct to the level of the papilla most likely due to prior cholecystectomy and reservoir effect. SPLEEN: Normal size. No focal lesions. PANCREAS: No identified cystic or solid masses. No significant calcifications. No adjacent inflammation or peripancreatic fluid collections. Pancreatic duct not dilated. ADRENALS: Normal. KIDNEYS/URINARY TRACT: No identified significant cystic or solid masses. No visualized stones. No hydronephrosis or hydroureter. Symmetric enhancement. Urinary bladder is unremarkable. GI: The stomach is normal. The small bowel and colon are normal in course and caliber with no evidence of obstruction or inflammation. The appendix is normal. PERITONEUM: No ascites or free air. No lymphadenopathy. RETROPERITONEUM: No mass or adenopathy. REPRODUCTIVE: There is mild enlargement of the uterus. Hypoattenuating right adnexal lesion measures 5.2 cm which is unchanged compared to 04/25/2025. VASCULATURE: No abdominal aortic aneurysm. MUSCULOSKELETAL: No acute fractures or aggressive bone lesions. IMPRESSION: 1. Unchanged hypoattenuating right adnexal lesion measuring 5.2 cm. Considering size, dedicated pelvic ultrasound is recommended for further evaluation. 2. Prior cholecystectomy. THIS IS AN ELECTRONICALLY VERIFIED FINAL REPORT 04/28/2025 5:58 PM - Electronically signed by Julio Gamino M.D. AT: AT Report ID: [id number] Reading Location: [id number] Procedure Note Julio Gamino MD - 04/28/2025 EXAM DESCRIPTION: CT ABDOMEN PELVIS W CONTRAST REASON FOR STUDY: Abdominal pain, acute, nonlocalized Pain and nausea for 3 days TECHNIQUE: CT scan of the abdomen and pelvis performed with intravenousand without oral contrast using helical scanning technique with dynamic intravenous contrast injection. Reconstructed coronal and sagittal MPRimages reviewed. All images stored on PACS. Automated exposure control was usedas a dose optimization technique for this examination. CONTRAST TYPE/DOSE: 100mL of IOVERSOL 350 MG IODINE/ML INTRAVENOUSSYRINGE injected COMPARISON: 04/25/2025 FINDINGS: LOWER CHEST: Mild scattered subsegmental atelectasis. Mosaic pattern attenuation in both lungs can be seen with small airways disease and less likely small vessels disease. Pleural effusion. Imaged portions of theheart and esophagus are within normal limits. LIVER: Normal size. No identified cystic or solid masses. Mildhepatic steatosis. Portal veins are patent. GALLBLADDER: Prior cholecystectomy. BILE DUCTS: Mild intra and extrahepatic biliary ductal dilatation with tapering of the common bile duct to the level of the papilla most likelydue to prior cholecystectomy and reservoir effect. SPLEEN: Normal size. No focal lesions. PANCREAS: No identified cystic or solid masses. No significant calcifications. No adjacent inflammation or peripancreatic fluidcollections. Pancreatic duct not dilated. ADRENALS: Normal. KIDNEYS/URINARY TRACT: No identified significant cystic or solid masses.No visualized stones. No hydronephrosis or hydroureter. Symmetricenhancement. Urinary bladder is unremarkable. GI: The stomach is normal. The small bowel and colon are normal incourse and caliber with no evidence of obstruction or inflammation. The appendixis normal. PERITONEUM: No ascites or free air. No lymphadenopathy. RETROPERITONEUM: No mass or adenopathy. REPRODUCTIVE: There is mild enlargement of the uterus. Hypoattenuating right adnexal lesion measures 5.2 cm which is unchanged compared to 04/25/2025. VASCULATURE: No abdominal aortic aneurysm. MUSCULOSKELETAL: No acute fractures or aggressive bone lesions. IMPRESSION: 1. Unchanged hypoattenuating right adnexal lesion measuring 5.2 cm. Considering size, dedicated pelvic ultrasound is recommended for further evaluation. 2. Prior cholecystectomy. THIS IS AN ELECTRONICALLY VERIFIED FINAL REPORT 04/28/2025 5:58 PM - Electronically signed by Julio Gamino M.D. AT: AT Report ID: [id number] Reading Location: [id number] us Feliciano Lynch MD IMG CT PROCEDURES Final Resu lt * Troponin T high-sensitivity 2-hour (04/28/2025 2:59 PM CDT) Trop T hs <6 <=14 ng/L [facility] (JUWAN) Comment: Interpretive Data For further hscTnT resources including the diagnostic algorithm and an aid in interpretation, copy and paste this link: https://nrl.testcatalog.org/show/hsTrop Current Interpretive Data last revised 2020. Trop T hs delta 0 ng/L [facility] (ARC[place]IA) Trop T hs interp Insignificant [facility] (ARC[place]IA) Blood 04/28/2025 2:59 PM CDT 04/28/2025 3:02 PM CDT us Edwin Gamino MD LAB BLOOD ORDERABLES Final Result [facility] ([place]IA) [address] [facility] [place] [address] * D-dimer, quantitative (04/28/2025 2:59 PM CDT) D-Dimer 408 <=499 ng/mL FEU [facility] (ARCADIA) Comment: Interpretive data FDA approved the D-dimer, in conjunction with a low or moderate pretest probability score, to exclude venous thromboembolic events (VTE) (PE and DVT) in outpatients when the D-dimer result is < 500 ng/ml FEU. Evidence supports using an age-adjusted D-dimer cut-off for outpatients older than 50 (age x 10) to improve specificity without sacrificing sensitivity. Example: age 68, VTE cut-off 680 ng/ml FEU. References; Schouten HT et al. Brit Med J. 2013;346:f2492. Priyanka et al. Annals Int Med. 2015;163:701-11. Current interpretive data was last revised on 2019. Blood 04/28/2025 2:59 PM CDT 04/28/2025 3:02 PM CDT us Feliciano Lynch MD LAB BLOOD ORDERABLES Final R esult [facility] ([place]) [address] [facility] [place] [address] * XR Spine Lumbar 2 or 3 Views (04/28/2025 2:26 PM CDT) Anatomical Region Laterality Modality Spine N/A Computed Radiogr aphy 04/28/2025 2:34 PM CDT Narrative 04/28/2025 2:35 PM CDT EXAM DESCRIPTION: XR SPINE LUMBAR 2 OR 3 VIEWS REASON FOR STUDY: pain Pt to the ED via [facility] with c/o chest pain and abd pain with nausea that started on Wednesday. TECHNIQUE: Three views COMPARISON: 04/07/2017 FINDINGS: 5 non rib-bearing lumbar type vertebra. Moderately severe thoracolumbar scoliosis convexity to the right in the lower lumbar regions slightly increased from previous. No compression deformity or subluxation. [id number] endplate degenerative changes thoracolumbar junction primarily. SI joints are unremarkable. Paravertebral soft tissues are unremarkable. IMPRESSION: Moderately severe thoracolumbar scoliosis and degenerative changes. THIS IS AN ELECTRONICALLY VERIFIED FINAL REPORT 04/28/2025 2:35 PM - Electronically signed by Adam Lobato M.D. RB: RB Report ID: [id number] Reading Location: [id number] Procedure Note Adam Lobato MD - 04/28/2025 EXAM DESCRIPTION: XR SPINE LUMBAR 2 OR 3 VIEWS REASON FOR STUDY: pain Pt to the ED via [facility] with c/o chest pain and abd pain with nausea that started on Wednesday. TECHNIQUE: Three views COMPARISON: 04/07/2017 FINDINGS: 5 non rib-bearing lumbar type vertebra. Moderately severe thoracolumbar scoliosis convexity to the right in thelower lumbar regions slightly increased from previous. No compression deformity or subluxation. [id number] endplate degenerative changes thoracolumbar junction primarily. SI joints are unremarkable. Paravertebral soft tissues are unremarkable. IMPRESSION: Moderately severe thoracolumbar scoliosis and degenerative changes. THIS IS AN ELECTRONICALLY VERIFIED FINAL REPORT 04/28/2025 2:35 PM - Electronically signed by Adam Lobato M.D. RB: RB Report ID: [id number] Reading Location: [id number] us Feliciano Lynch MD IMG XR PROCEDURES Final Resu lt * XR Chest Pa Lateral 2 Vw (04/28/2025 2:26 PM CDT) Anatomical Region Laterality Modality Body, Chest N/A Computed Radiogr aphy 04/28/2025 2:33 PM CDT Narrative 04/28/2025 2:34 PM CDT EXAM DESCRIPTION: XR CHEST PA LATERAL 2 VIEWS REASON FOR STUDY: general weakness Pt to the ED via [facility] with c/o chest pain and abd pain with nausea that started on Wednesday. TECHNIQUE: Two views COMPARISON: 01/03/2024 FINDINGS: Heart size is moderately enlarged. Central vascularity are mildly prominent, similar to previous. No dense consolidation, effusion or pneumothorax. IMPRESSION: Mild central vascular prominence similar to previous. THIS IS AN ELECTRONICALLY VERIFIED FINAL REPORT 04/28/2025 2:34 PM - Electronically signed by Adam Lobato M.D. RB: RB Report ID: [id number] Reading Location: [id number] Procedure Note Adam Lobato MD - 04/28/2025 EXAM DESCRIPTION: XR CHEST PA LATERAL 2 VIEWS REASON FOR STUDY: general weakness Pt to the ED via [facility] with c/o chest pain and abd pain with nausea that started on Wednesday. TECHNIQUE: Two views COMPARISON: 01/03/2024 FINDINGS: Heart size is moderately enlarged. Central vascularity are mildlyprominent, similar to previous. No dense consolidation, effusion or pneumothorax. IMPRESSION: Mild central vascular prominence similar to previous. THIS IS AN ELECTRONICALLY VERIFIED FINAL REPORT 04/28/2025 2:34 PM - Electronically signed by Adam Lobato M.D. RB: RB Report ID: [id number] Reading Location: [id number] Feliicano Lynch MD IMG XR PROCEDURES Final Resu lt * Troponin T high-sensitivity series (baseline, 2hr, 4hr, 6hr) (04/28/2025 1:08 PM CDT) Trop T hs <6 <=14 ng/L [facility] ([place]) Comment: Interpretive Data For further hscTnT resources including the diagnostic algorithm and an aid in interpretation, copy and paste this link: https://nrl.testcatalog.org/show/hsTrop Current Interpretive Data last revised 2020. Blood 04/28/2025 1:08 PM CDT 04/28/2025 1:30 PM CDT Feliciano Lynch MD LAB BLOOD ORDERABLES Final R esult [facility] ([place]) [address] [facility] [place] [address] * eGFR (04/28/2025 1:08 PM CDT) eGFR >90 >=60 mL/min/1. 73 [...] interpretive data was last reviewed 2021. Blood 04/28/2025 1:08 PM CDT 04/28/2025 1:30 PM CDT us Edwin Gaimno MD LAB BLOOD ORDERABLES Final Result [facility] ([place]IA) [address] [facility] [place], [place] [id number] * (ABNORMAL) Differential, auto (04/28/2025 1:08 PM CDT) Neutrophil abs 10.07(H) 1.50 - 6.50 K/cumm Imm gran abs 0.06 0.00 - 0.10 K/cumm [facility] ([place]) Lymphocyte abs 2.13 0.80 - 3.30 K/cumm [facility] ([place]) Monocyte abs 0.37 0.20 - 0.80 K/cumm [facility] ([place]) Eosinophil abs 0.08 0.00 - 0.50 K/cumm [facility] ([place]) Basophil abs 0.03 0.00 - 0.10 K/cumm [facility] ([place]) Neutrophil pct 79.1 % [facility] ([place]) Comment: Interpretive Data Percent cell count reference ranges are not reported, since discordance with absolute values may lead to misinterpretation of CBC data. Current Interpretive Data was last revised on 2017. Imm gran pct 0.5 % [facility] ([place]) Comment: Interpretive Data Percent cell count reference ranges are not reported, since discordance with absolute values may lead to misinterpretation of CBC data. Current Interpretive Data was last revised on 2017. Lymphocyte pct 16.7 % [facility] ([place]) Comment: Interpretive Data Percent cell count reference ranges are not reported, since discordance with absolute values may lead to misinterpretation of CBC data. Current Interpretive Data was last revised on 2017. Monocyte pct 2.9 % [facility] ([place]) Comment: Interpretive Data Percent cell count reference ranges are not reported, since discordance with absolute values may lead to misinterpretation of CBC data. Current Interpretive Data was last revised on 2017. Eosinophil pct 0.6 % [facility] ([place]) Comment: Interpretive Data Percent cell count reference ranges are not reported, since discordance with absolute values may lead to misinterpretation of CBC data. Current Interpretive Data was last revised on 2017. Basophil pct 0.2 % [facility] ([place]UW[place]) Comment: Interpretive Data Percent cell count reference ranges are not reported, since discordance with absolute values may lead to misinterpretation of CBC data. Current Interpretive Data was last revised on 2017. Blood 04/28/2025 1:08 PM CDT 04/28/2025 1:30 PM CDT Edwin Gamino MD LAB BLOOD ORDERABLES Final Result [facility] ([place]UW[place]) 1 [facility] [place] [address] * (ABNORMAL) CBC with auto differential (04/28/2025 1:08 PM CDT) WBC 12.74(H) 3.80 - 9.90 K/cumm Hgb 13.2 11.9 - 15.5 g/dL [facility] ([place]) Hct 40.3 35.6 - 45.5 % [facility] ([place]) Plt 451(H) 150 - 400 K/cumm [facility] ([place]) MPV 8.7(L) 9.1 - 12.3 fL [facility] ([place]) RBC 4.63 3.90 - 5.20 M/cumm [facility] ([place]) MCV 87.0 81.3 - 96.4 fL [facility] ([place]) MCH 28.5 27.1 - 33.3 pg [facility] ([place]) MCHC 32.8 32.3 - 35.7 g/dL [facility] ([place]) RDW CV 14.1 11.1 - 14.9 % [facility] ([place]) RDW SD 44.2 35.7 - 48.1 fL [facility] ([place]) NRBC abs 0.00 0.00 - 0.01 K/cumm [facility] ([place]) Blood Venous blood specimen / Unknown 04/28/2025 1:08 PM CDT 04/28/2025 1:30 PM CDT Feliciano Lynch MD LAB BLOOD ORDERABLES Final R esult [facility] ([place]UWAN) 1 [facility] [place] [address] * Lipase (04/28/2025 1:08 PM CDT) Lipase 10 10 - 99 Units/L [facility] (JUWAN) Blood Venous blood specimen / Unknown 04/28/2025 1:08 PM CDT 04/28/2025 1:30 PM CDT Feliciano Lynch MD LAB BLOOD ORDERABLES Final R esult Performing Organization Address City/[facility]/ZIP Co de Phone Number [facility] (JUWAN) 1 [facility] [place] [address] * (ABNORMAL) Comprehensive metabolic panel (04/28/2025 1:08 PM CDT) Sodium 141 135 - 145 mmol/L [facility] ([place]) Potassium, pl 3.7 3.3 - 4.9 mmol/L [facility] ([place]) Chloride 101 97 - 110 mmol/L [facility] ([place]) CO2 21(L) 22 - 32 mmol/L [facility] ([place]) Anion gap 19(H) 2 - 15 mmol/L [facility] ([place]) BUN 12 6 - 25 mg/dL [facility] ([place]) Creatinine 0.43(L) 0.60 - 1.10 mg/dL [facility] ([place]) Glucose 123 70 - 199 mg/dL [facility] ([place]) Comment: Interpretive Data Fasting glucose >/= 126 mg/dl is diagnostic for diabetes. Fasting is defined as no caloric intake for at least 8 hours. Fasting glucose between 100 mg/dl to 125 mg/dl is diagnostic of prediabetes. In a patient with classic symptoms of hyperglycemia or hyperglycemic crisis, a random glucose >/= 200 mg/dl is diagnostic for diabetes. In the absence of unequivocal hyperglycemia, results should be confirmed by repeat testing. The classification and Diagnosis of Diabetes Diabetes Care 202; 46: S19-S40. Current interpretive data was last revised 2022. Calcium 9.4 8.5 - 10.3 mg/dL [facility] ([place]) Bilirubin, total 0.4 0.1 - 1.2 mg/dL [facility] ([place]) Protein, pl 8.2 6.5 - 8.5 g/dL [facility] ([place]) Albumin 4.2 3.5 - 5.0 g/dL [facility] ([place]) Alk phos 84 40 - 130 Units/L [facility] ([place]) ALT 6(L) 7 - 45 Units/L [facility] ([place]) AST 11 10 - 45 Units/L [facility] ([place]) Blood 04/28/2025 1:08 PM CDT 04/28/2025 1:30 PM CDT Feliciano Lynch MD LAB BLOOD ORDERABLES Final R esult Performing Organization Address [facility] Co de Phone Number [facility] ([place]UWAN) [address] [place] [address] [place] [address] * ECG 12 lead (04/28/2025 1:07 PM CDT) 04/28/2025 1:07 PM CDT Narrative [facility] - 04/30/2025 6:45 AM CDT Vent Rate: 91 bpm RR Interval: 653 msec [place]Y Interval: 167 msec QRS Duration: 90 msec QT Interval: 374 msec QTC Interval: 423 msec P-R-T [place]: 57 - -21 - 27 degrees IMPRESSION: SINUS RHYTHM POSSIBLE ANTERIOR MYOCARDIAL INFARCTION , PROBABLY OLD [30 ms Q WAVE IN V3/V4, OR R < 0.2 mV IN V4] BORDERLINE ECG NO CHANGE FROM PREVIOUS TRACING NOTED Electronically Signed By: Julio Ramirez MD Feliciano Lynch MD ECG ORDERABLES Final Result Performing Organization Address [facility] de Phone Number [facility] [employer] [facility] * (ABNORMAL) Urinalysis reflex to microscopic and culture Urine (04/25/2025 11:14 AM CDT) Color, ur Yellow Yellow Clarity, ur Clear Clear [facility] ([place]UW[place]) Specific gravity, ur 1.010 1.003 - 1.030 [facility] ([place]) pH, urine 6.5 [facility] ([place]) Comment: Interpretive Data U rine pH is affected by diet, medications, systemic acid-base disturbances, and renal tubular function. pH may affect urinary stone formation. For example, urine pH below 6.0 may help reduce the tendency for calcium phosphate stones and pH greater than 6.0 may reduce the tendency for uric acid stone formation. Source: [facility] Current Interpretive Data was last revised on 2017 Protein, ur ql 1+(A) Negative [facility] ([place]) Glucose, ur ql Negative Negative [facility] ([place]) Ketones, ur Negative Negative [facility] ([place]) Bilirubin, ur Negative Negative [facility] ([place]) Blood, ur Trace(A) Negative [facility] ([place]) Urobilinogen, ur <2.0 <2.0 mg/dL [facility] ([place]) Nitrite, ur Negative Negative [facility] ([place]UW[place]) Leukocyte esterase, ur Negative Negative [facility] ([place]) UA reflex comment Reflex to microscopic UA will be performed. [facility] ([place]) Urine 04/25/2025 11:1 4 AM CDT 04/25/2025 11:20 AM CDT Timbo LEGGETT LAB MICROBIOLOGY - NERAL ORDERABLES Final Result [facility] (JUWAN) 1 [facility] [place] [address] * (ABNORMAL) Urinalysis, microscopic only (04/25/2025 11:14 AM CDT) WBC, ur 6-10(A) 0 - 5 /HPF RBC, ur 3-5(A) 0 - 2 /HPF [facility] ([place]) Epithelial cells, squamous, ur 6-10(A) 0 - 5 /HPF [facility] ([place]) Mucous, ur Present(A) [facility] (JUWAN) Culture Reflex Comment Reflex conditions for urine culture (WBC >10) not met. [facility] (JUWAN) Urine 04/25/2025 11:1 4 AM CDT 04/25/2025 11:20 AM CDT Timbo LEGGETT LAB URINE ORDERABLES Final Result [facility] ([place]UWAN) 1 [facility] [place] [address] * CT Abdomen Pelvis W Contrast (04/25/2025 10:25 AM CDT) Anatomical Region Laterality Modality Body N/A Computed Tomogra phy 04/25/2025 10:4 7 AM CDT Narrative 04/25/2025 11:01 AM CDT EXAM DESCRIPTION: CT ABDOMEN PELVIS W CONTRAST REASON FOR STUDY: Abdominal pain radiating to the mid back with vomiting for 3 days. Prior cholecystectomy and section. TECHNIQUE: CT scan of the abdomen and pelvis performed with intravenous and without oral contrast using helical scanning technique with dynamic intravenous contrast injection. Reconstructed coronal and sagittal MPR images reviewed. All images stored on PACS. Automated exposure control was used as a dose optimization technique for this examination. CONTRAST TYPE/DOSE: 100mL of IOVERSOL 350 MG IODINE/ML INTRAVENOUS SYRINGE injected via intravenous COMPARISON: CT chest, abdomen, pelvis 05/02/2024 FINDINGS: LOWER CHEST: No significant pulmonary abnormalities. No pleural effusion. Trace pericardial effusion. LIVER: No focal liver lesion. GALLBLADDER: Prior cholecystectomy. BILE DUCTS: No intrahepatic or extrahepatic ductal dilatation. SPLEEN: Normal size. No focal lesions. PANCREAS: No masses. No adjacent inflammation or peripancreatic fluid collections. No pancreatic ductal dilatation. ADRENALS: Normal. KIDNEYS/URINARY TRACT: No identified significant cystic or solid masses. No hydronephrosis or hydroureter. Symmetric nephrograms. The bladder is decompressed and incompletely evaluated. GI: No dilated bowel loops. No obvious wall thickening. Normal appendix. No significant diverticular disease. PERITONEUM: No ascites or free air. RETROPERITONEUM: No mass or lymphadenopathy. REPRODUCTIVE: There is a 5 cm low-attenuation right adnexal lesion which previously measured 2.3 cm in 2023. VASCULATURE: No abdominal aortic aneurysm. MUSCULOSKELETAL: Mild thoracolumbar spondylosis. OTHER: No other abnormality. IMPRESSION: 1. No abnormality to explain the patient's symptoms. 2. Right adnexal lesion measuring 5 cm previously measured 2.3 cm in 2023. Follow-up pelvic ultrasound is recommended. THIS IS AN ELECTRONICALLY VERIFIED FINAL REPORT 04/25/2025 11:01 AM - Electronically signed by Todd Harkins M.D. LB: ZACK Report ID: [id number] Reading Location: [id number] Procedure Note Todd Harkins MD - 04/25/2025 EXAM DESCRIPTION: CT ABDOMEN PELVIS W CONTRAST REASON FOR STUDY: Abdominal pain radiating to the mid back with vomitingfor 3 days. Prior cholecystectomy and section. TECHNIQUE: CT scan of the abdomen and pelvis performed with intravenousand without oral contrast using helical scanning technique with dynamic intravenous contrast injection. Reconstructed coronal and sagittal MPRimages reviewed. All images stored on PACS. Automated exposure control was usedas a dose optimization technique for this examination. CONTRAST TYPE/DOSE: 100mL of IOVERSOL 350 MG IODINE/ML INTRAVENOUSSYRINGE injected via intravenous COMPARISON: CT chest, abdomen, pelvis 05/02/2024 FINDINGS: LOWER CHEST: No significant pulmonary abnormalities. No pleuraleffusion. Trace pericardial effusion. LIVER: No focal liver lesion. GALLBLADDER: Prior cholecystectomy. BILE DUCTS: No intrahepatic or extrahepatic ductal dilatation. SPLEEN: Normal size. No focal lesions. PANCREAS: No masses. No adjacent inflammation or peripancreatic fluid collections. No pancreatic ductal dilatation. ADRENALS: Normal. KIDNEYS/URINARY TRACT: No identified significant cystic or solid masses.No hydronephrosis or hydroureter. Symmetric nephrograms. The bladder is decompressed and incompletely evaluated. GI: No dilated bowel loops. No obvious wall thickening. Normalappendix. No significant diverticular disease. PERITONEUM: No ascites or free air. RETROPERITONEUM: No mass or lymphadenopathy. REPRODUCTIVE: There is a 5 cm low-attenuation right adnexal lesion which previously measured 2.3 cm in 2024. VASCULATURE: No abdominal aortic aneurysm. MUSCULOSKELETAL: Mild thoracolumbar spondylosis. OTHER: No other abnormality. IMPRESSION: 1. No abnormality to explain the patient's symptoms. 2. Right adnexal lesion measuring 5 cm previously measured 2.3 cm [id number]. Follow-up pelvic ultrasound is recommended. THIS IS AN ELECTRONICALLY VERIFIED FINAL REPORT 04/25/2025 11:01 AM - Electronically signed by Todd Harkins M.D. LB: ZACK Report ID: [id number] Reading Location: [id number] us Timbo LEGGETT IMG CT PROCEDURES Fin al Result * Troponin T high-sensitivity (04/25/2025 8:52 AM CDT) Trop T hs <6 <=14 ng/L [facility] (JUWAN) Comment: Interpretive Data For further hscTnT resources including the diagnostic algorithm and an aid in interpretation, copy and paste this link: https://nrl.testcatalog.org/show/hsTrop Current Interpretive Data last revised 2020. Blood 04/25/2025 8:52 AM CDT 04/25/2025 8:55 AM CDT us Timbo LEGGETT LAB BLOOD ORDERABLES Final Result [facility] ([place]UWAN) 1 [facility] [place] [address] * eGFR (04/25/2025 8:52 AM CDT) eGFR >90 >=60 mL/min/1. 73 m2 [...] interpretive data was last reviewed 2021. Blood 04/25/2025 8:52 AM CDT 04/25/2025 8:55 AM CDT us Timbo LEGGETT LAB BLOOD ORDERABLES Final Result [facility] ([place]) 1 [facility] [place] [address] * (ABNORMAL) Differential, auto (04/25/2025 8:52 AM CDT) Neutrophil abs 11.83(H) 1.50 - 6.50 K/cumm Imm gran abs 0.12(H) 0.00 - 0.10 K/cumm [facility] ([place]) Lymphocyte abs 2.20 0.80 - 3.30 K/cumm [facility] ([place]) Monocyte abs 0.44 0.20 - 0.80 K/cumm [facility] ([place]) Eosinophil abs 0.05 0.00 - 0.50 K/cumm [facility] ([place]) Basophil abs 0.04 0.00 - 0.10 K/cumm [facility] ([place]) Neutrophil pct 80.6 % [facility] ([place]) Comment: Interpretive Data Percent cell count reference ranges are not reported, since discordance with absolute values may lead to misinterpretation of CBC data. Current Interpretive Data was last revised on 2017. Imm gran pct 0.8 % [facility] ([place]) Comment: Interpretive Data Percent cell count reference ranges are not reported, since discordance with absolute values may lead to misinterpretation of CBC data. Current Interpretive Data was last revised on 2017. Lymphocyte pct 15.0 % [facility] ([place]) Comment: Interpretive Data Percent cell count reference ranges are not reported, since discordance with absolute values may lead to misinterpretation of CBC data. Current Interpretive Data was last revised on 2017. Monocyte pct 3.0 % [facility] ([place]) Comment: Interpretive Data Percent cell count reference ranges are not reported, since discordance with absolute values may lead to misinterpretation of CBC data. Current Interpretive Data was last revised on 2017. Eosinophil pct 0.3 % [facility] ([place]) Comment: Interpretive Data Percent cell count reference ranges are not reported, since discordance with absolute values may lead to misinterpretation of CBC data. Current Interpretive Data was last revised on 2017. Basophil pct 0.3 % [facility] ([place]UW[place]) Comment: Interpretive Data Percent cell count reference ranges are not reported, since discordance with absolute values may lead to misinterpretation of CBC data. Current Interpretive Data was last revised on 2017. Blood 04/25/2025 8:52 AM CDT 04/25/2025 8:55 AM CDT us Timbo LEGGETT LAB BLOOD ORDERABLES Final Result [facility] ([place]UWAN) 1 [facility] [place] [address] * (ABNORMAL) CBC with auto differential (04/25/2025 8:52 AM CDT) WBC 14.68(H) 3.80 - 9.90 K/cumm Hgb 13.0 11.9 - 15.5 g/dL [facility] ([place]UW[place]) Hct 39.8 35.6 - 45.5 % [facility] ([place]UW[place]) Plt 451(H) 150 - 400 K/cumm [facility] ([place]UW[place]) MPV 8.6(L) 9.1 - 12.3 fL [facility] ([place]) RBC 4.62 3.90 - 5.20 M/cumm [facility] ([place]) MCV 86.1 81.3 - 96.4 fL [facility] ([place]) MCH 28.1 27.1 - 33.3 pg [facility] ([place]) MCHC 32.7 32.3 - 35.7 g/dL [facility] ([place]) RDW CV 14.1 11.1 - 14.9 % [facility] ([place]) RDW SD 43.9 35.7 - 48.1 fL [facility] ([place]) NRBC abs 0.00 0.00 - 0.01 K/cumm [facility] ([place]UW[place]) Blood 04/25/2025 8:52 AM CDT 04/25/2025 8:55 AM CDT us Timbo LEGGETT LAB BLOOD ORDERABLES Final Result Performing Organization Address City/[facility] Co de Phone Number [facility] ([place]) 1 [facility] [place] [address] * hCG, blood, quantitative (04/25/2025 8:52 AM CDT) hCG, quant <5.0 0.0 - 5.0 IUnits/L [facility] (JUWAN) Comment: Interpretive Data Male: < 5 IU/L Non- premenopausal Female: <5 IU/L The Tanvi hCG Beta Quant assay procedure was used. Results from different manufacturers or methods may not be comparable. Serial testing should be performed using the same method. Interpretive Data was last revised on 2023 Blood 04/25/2025 8:52 AM CDT 04/25/2025 9:43 AM CDT us Hattie Banegas MD LAB BLOOD ORDERABLES Nalini l Result [facility] (JUAWN) 1 [facility] [place] [address] * Lipase (04/25/2025 8:52 AM CDT) Lipase 14 10 - 99 Units/L [facility] ([place]UWAN) Blood 04/25/2025 8:52 AM CDT 04/25/2025 8:55 AM CDT Timbo LEGGETT LAB BLOOD ORDERABLES Final Result [facility] (JUWAN) 1 [facility] [place] [address] * (ABNORMAL) Comprehensive metabolic panel (04/25/2025 8:52 AM CDT) Sodium 139 135 - 145 mmol/L [facility] ([place]UWAN) Potassium, pl 3.8 3.3 - 4.9 mmol/L [facility] ([place]UW[place]) Chloride 100 97 - 110 mmol/L [facility] ([place]UW[place]) CO2 24 22 - 32 mmol/L [facility] ([place]UW[place]) Anion gap 15 2 - 15 mmol/L [facility] ([place]UW[place]) BUN 12 6 - 25 mg/dL [facility] ([place]UW[place]) Creatinine 0.49(L) 0.60 - 1.10 mg/dL [facility] (JUWAN) Glucose 171 70 - 199 mg/dL [facility] (JUWAN) Comment: Interpretive Data Fasting glucose >/= 126 mg/dl is diagnostic for diabetes. Fasting is defined as no caloric intake for at least 8 hours. Fasting glucose between 100 mg/dl to 125 mg/dl is diagnostic of prediabetes. In a patient with classic symptoms of hyperglycemia or hyperglycemic crisis, a random glucose >/= 200 mg/dl is diagnostic for diabetes. In the absence of unequivocal hyperglycemia, results should be confirmed by repeat testing. The classification and Diagnosis of Diabetes Diabetes Care 2021; 46: S19-S40. Current interpretive data was last revised 2022. Calcium 9.0 8.5 - 10.3 mg/dL [facility] (JUWAN) Bilirubin, total 0.2 0.1 - 1.2 mg/dL [facility] ([place]UW[place]) Protein, pl 8.3 6.5 - 8.5 g/dL [facility] ([place]UW[place]) Albumin 4.3 3.5 - 5.0 g/dL [facility] (JUWAN) Alk phos 86 40 - 130 Units/L [facility] ([place]UW[place]) ALT 8 7 - 45 Units/L [facility] ([place]UW[place]) AST 10 10 - 45 Units/L [facility] (JUWAN) Blood 04/25/2025 8:52 AM CDT 04/25/2025 8:55 AM CDT Timbo LEGGETT LAB BLOOD ORDERABLES Final Result Performing Organization Address [facility] Co de Phone Number [facility] (JUWAN) 1 [facility] [employer] [place] [address] * ECG 12 lead (04/25/2025 8:51 AM CDT) 04/25/2025 8:51 AM CDT Narrative [facility] - 04/25/2025 10:52 AM CDT Vent Rate: 104 bpm RR Interval: 575 msec WY Interval: 154 msec QRS Duration: 98 msec QT Interval: 351 msec QTC Interval: 411 msec P-R-T [place]: 65 - 18 - 39 degrees IMPRESSION: SINUS TACHYCARDIA POSSIBLE ANTERIOR MYOCARDIAL INFARCTION , OF INDETERMINATE AGE [30 ms Q WAVE IN V3/V4, OR R < 0.2 mV IN V4] ABNORMAL ECG NO CHANGE FROM PREVIOUS TRACING NOTED Electronically Signed By: Julio Ramirez MD Timbo LEGGETT ECG ORDERABLES Final Result Performing Organization Address [facility] de Phone Number [facility] * POCT glucose (03/07/2025 5:01 PM CDT) Glucose, POC 139 70 - 199 mg/dL Blood 03/07/2025 5:01 PM CDT 03/07/2025 5:01 PM CDT Manjula Meyers MD LAB POCT ORDERABLES - DEV ICE Final Result Performing Organization Address [facility] Co de Phone Number [facility] (JUWAN) 1 [facility] [place] [address] * Troponin T high-sensitivity (03/07/2025 11:52 AM CDT) Trop T hs <6 <=14 ng/L Comment: Interpretive Data For further hscTnT resources including the diagnostic algorithm and an aid in interpretation, copy and paste this link: https://nrl.testcatalog.org/show/hsTrop Current Interpretive Data last revised 2020. Blood 03/07/2025 11:5 2 AM CDT 03/07/2025 12:19 PM CDT us Jocelyne Torrez NP LAB BLOOD ORDERABLE S Final Result [facility] ([place]) 1 [facility] [place] [address] * POCT glucose (03/07/2025 11:33 AM CDT) Glucose, POC 183 70 - 199 mg/dL Blood 03/07/2025 11:3 3 AM CDT 03/07/2025 11:33 AM CDT us Manjula Meyers MD LAB POCT ORDERABLES - DEV ICE Final Result Performing Organization Address [facility]/ZIP Co de Phone Number [facility] ([place]) 1 [facility] [place] [address] * (ABNORMAL) POCT glucose (03/07/2025 8:04 AM CDT) Glucose, POC 261(H) 70 - 199 mg/dL Blood 03/07/2025 8:04 AM CDT 03/07/2025 8:04 AM CDT us Summer Watts MD LAB POCT ORDERABLES - DEVICE Final Result Performing Organization Address City/[facility]/ZIP Co de Phone Number [facility] (ARC[place]IA) 1 [facility] [place] [address] * eGFR (03/07/2025 5:30 AM CDT) eGFR >90 >=60 mL/min/1. 73 m2 [...] interpretive data was last reviewed 2021. Blood 03/07/2025 5:30 AM CDT 03/07/2025 5:51 AM CDT us Summer Watts MD LAB BLOOD ORDERABLE S Final Result [facility] (ARC[place]IA) 1 [facility] [place] [address] * (ABNORMAL) Differential, auto (03/07/2025 5:30 AM CDT) Neutrophil abs 8.07(H) 1.50 - 6.50 K/cumm Imm gran abs 0.04 0.00 - 0.10 K/cumm [facility] (JUWAN) Lymphocyte abs 2.35 0.80 - 3.30 K/cumm [facility] (JUW[facility]) Monocyte abs 0.56 0.20 - 0.80 K/cumm [facility] ([place]UW[place]) Eosinophil abs 0.15 0.00 - 0.50 K/cumm [facility] (JUW[place]) Basophil abs 0.04 0.00 - 0.10 K/cumm [facility] (JUWAN) Neutrophil pct 71.9 % [facility] (JUWAN) Comment: Interpretive Data Percent cell count reference ranges are not reported, since discordance with absolute values may lead to misinterpretation of CBC data. Current Interpretive Data was last revised on 2017. Imm gran pct 0.4 % [facility] (JUWAN) Comment: Interpretive Data Percent cell count reference ranges are not reported, since discordance with absolute values may lead to misinterpretation of CBC data. Current Interpretive Data was last revised on 2017. Lymphocyte pct 21.0 % [facility] (JUWAN) Comment: Interpretive Data Percent cell count reference ranges are not reported, since discordance with absolute values may lead to misinterpretation of CBC data. Current Interpretive Data was last revised on 2017. Monocyte pct 5.0 % [facility] (JUWAN) Comment: Interpretive Data Percent cell count reference ranges are not reported, since discordance with absolute values may lead to misinterpretation of CBC data. Current Interpretive Data was last revised on 2017. Eosinophil pct 1.3 % [facility] (JUWAN) Comment: Interpretive Data Percent cell count reference ranges are not reported, since discordance with absolute values may lead to misinterpretation of CBC data. Current Interpretive Data was last revised on 2017. Basophil pct 0.4 % [facility] (JUWAN) Comment: Interpretive Data Percent cell count reference ranges are not reported, since discordance with absolute values may lead to misinterpretation of CBC data. Current Interpretive Data was last revised on 2017. Blood 03/07/2025 5:30 AM CDT 03/07/2025 5:51 AM CDT us Summer Watts MD LAB BLOOD ORDERABLE S Final Result [facility] (JUWAN) 1 [facility] [place] [address] * (ABNORMAL) CBC with auto differential (03/07/2025 5:30 AM CDT) WBC 11.21(H) 3.80 - 9.90 K/cumm Hgb 12.0 11.9 - 15.5 g/dL [facility] (JUWAN) Hct 36.4 35.6 - 45.5 % [facility] (JUWAN) Plt 385 150 - 400 K/cumm [facility] ([place]UWAN) MPV 8.8(L) 9.1 - 12.3 fL [facility] (JUWAN) RBC 4.16 3.90 - 5.20 M/cumm [facility] ([place]UWAN) MCV 87.5 81.3 - 96.4 fL [facility] ([place]UW[place]) MCH 28.8 27.1 - 33.3 pg [facility] ([place]) MCHC 33.0 32.3 - 35.7 g/dL [facility] ([place]UW[place]) RDW CV 14.0 11.1 - 14.9 % [facility] ([place]UWAN) RDW SD 43.9 35.7 - 48.1 fL [facility] ([place]UW[place]) NRBC abs 0.00 0.00 - 0.01 K/cumm [facility] (JUW[place]) Blood 03/07/2025 5:30 AM CDT 03/07/2025 5:51 AM CDT us Summer Watts MD LAB BLOOD ORDERABLE S Final Result [facility] (JUWAN) 1 [facility] [place] [address] * (ABNORMAL) Comprehensive metabolic panel (03/07/2025 5:30 AM CDT) Sodium 135 135 - 145 mmol/L Potassium, pl 4.2 3.3 - 4.9 mmol/L [facility] (JUWAN) Chloride 99 97 - 110 mmol/L [facility] ([place]UW[place]) CO2 24 22 - 32 mmol/L [facility] (JUWAN) Anion gap 12 2 - 15 mmol/L [facility] (JUWAN) BUN 14 6 - 25 mg/dL [facility] (JUWAN) Creatinine 0.50(L) 0.60 - 1.10 mg/dL [facility] (JUWAN) Glucose 305(H) 70 - 199 mg/dL [facility] (JUWAN) Comment: Interpretive Data Fasting glucose >/= 126 mg/dl is diagnostic for diabetes. Fasting is defined as no caloric intake for at least 8 hours. Fasting glucose between 100 mg/dl to 125 mg/dl is diagnostic of prediabetes. In a patient with classic symptoms of hyperglycemia or hyperglycemic crisis, a random glucose >/= 200 mg/dl is diagnostic for diabetes. In the absence of unequivocal hyperglycemia, results should be confirmed by repeat testing. The classification and Diagnosis of Diabetes Diabetes Care 2021; 46: S19-S40. Current interpretive data was last revised 2022. Calcium 9.3 8.5 - 10.3 mg/dL [facility] ([facility]) Bilirubin, total 0.4 0.1 - 1.2 mg/dL [facility] ([facility]) Protein, pl 7.2 6.5 - 8.5 g/dL [facility] ([facility]) Albumin 3.8 3.5 - 5.0 g/dL [facility] ([facility]) Alk phos 88 40 - 130 Units/L [facility] ([facility]) ALT 6(L) 7 - 45 Units/L [facility] ([facility]) AST 5(L) 10 - 45 Units/L [facility] ([facility]) Blood 03/07/2025 5:30 AM CDT 03/07/2025 5:51 AM CDT us Summer Watts MD LAB BLOOD ORDERABLE S Final Result [facility] (JUWAN) 1 [facility] [place] [address] * (ABNORMAL) POCT glucose (03/07/2025 5:14 AM CDT) [facility] Signature Glucose, POC 336(H) 70 - 199 mg/dL Blood 03/07/2025 5:14 AM CDT 03/07/2025 5:14 AM CDT us Summer Watts MD LAB POCT ORDERABLES - DEVICE Final Result [facility] (JUWAN) 1 [facility] [place] [address] * (ABNORMAL) POCT glucose (03/07/2025 2:15 AM CDT) Glucose, POC 307(H) 70 - 199 mg/dL Blood 03/07/2025 2:15 AM CDT 03/07/2025 2:15 AM CDT us Summer Watts MD LAB POCT ORDERABLES - DEVICE Final Result [facility] (JUWAN) 1 [place] [address] * (ABNORMAL) POCT glucose (03/06/2025 11:56 PM CDT) [facility] Signature Glucose, POC 353(H) 70 - 199 mg/dL Blood 03/06/2025 11:5 6 PM CDT 03/06/2025 11:56 PM CDT us Summer Watts MD LAB POCT ORDERABLES - DEVICE Final Result [facility] (JUWAN) 1 [place] [address] * (ABNORMAL) Aerobic culture and gram stain Abscess Labia (03/06/2025 10:49 PM CDT) Direct Specimen Exam Stain: Few polymorphonuclear leukocytes seen. Rare Gram Positive Cocci Comment:Testing performed by : [facility], [address] [place] [address] Report Final Report: Few Mixed genitourinary tract microorganisms. (.) [facility] (JUWAN) Comment:Testing performed by : [facility], [address] [place] [address] Organism MIXED GENITOURINARY TRACT MICROORGANISMS. [facility] (JUWAN) Abscess (Labia) 03/06/2025 1 0:49 PM CDT 03/07/2025 2:09 AM CDT Narrative [facility] (JUWAN) - 03/11/2025 2:35 PM CDT Specimen received on an ESwab. Testing performed by [facility] ([phone]) Specimens submitted from normally sterile body sites will have all bacterial morphotypes identified. Specimens that contain grossly mixed kate and/or are from body sites that are not normally sterile will be examined for Staphylococcus aureus, Pseudomonas aeruginosa, beta-hemolytic strep, vancomycin-resistant Enterococcus and fungus. If any of these are isolated, the organism will be reported. Current interpretive data was last revised on 2017. Denny Blackburn MD LAB MICROBIOLOGY - GENERAL ORDERABLES Final Result [facility] (JUWAN) 1 [facility] [place] [address] * eGFR (03/06/2025 9:18 PM CDT) eGFR >90 >=60 mL/min/1. 73 [...] of Race in Diagnosing Kidney Disease, JASN 2021). The CKD-EPI equation should not be used for patients with unstable renal function and has not been validated in children and those over 70. Current interpretive data was last reviewed 2021. Blood 03/06/2025 9:18 PM CDT 03/06/2025 9:41 PM CDT us Denny Blackburn MD LAB BLOOD ORDERABLES Final Result [facility] (ARCADIA) 1 [facility] [place], [place] [id number] * (ABNORMAL) Differential, auto (03/06/2025 9:18 PM CDT) Neutrophil abs 8.04(H) 1.50 - 6.50 K/cumm Imm gran abs 0.04 0.00 - 0.10 K/cumm [facility] ([facility]) Lymphocyte abs 2.53 0.80 - 3.30 K/cumm [facility] ([facility]) Monocyte abs 0.45 0.20 - 0.80 K/cumm [facility] ([facility]) Eosinophil abs 0.14 0.00 - 0.50 K/cumm [facility] ([facility]) Basophil abs 0.03 0.00 - 0.10 K/cumm [facility] ([facility]) Neutrophil pct 71.6 % [facility] ([facility]) Comment: Interpretive Data Percent cell count reference ranges are not reported, since discordance with absolute values may lead to misinterpretation of CBC data. Current Interpretive Data was last revised on 2017. Imm gran pct 0.4 % [facility] ([facility]) Comment: Interpretive Data Percent cell count reference ranges are not reported, since discordance with absolute values may lead to misinterpretation of CBC data. Current Interpretive Data was last revised on 2017. Lymphocyte pct 22.5 % [facility] ([facility]) Comment: Interpretive Data Percent cell count reference ranges are not reported, since discordance with absolute values may lead to misinterpretation of CBC data. Current Interpretive Data was last revised on 2017. Monocyte pct 4.0 % [facility] ([facility]) Comment: Interpretive Data Percent cell count reference ranges are not reported, since discordance with absolute values may lead to misinterpretation of CBC data. Current Interpretive Data was last revised on 2017. Eosinophil pct 1.2 % [facility] ([facility]) Comment: Interpretive Data Percent cell count reference ranges are not reported, since discordance with absolute values may lead to misinterpretation of CBC data. Current Interpretive Data was last revised on 2017. Basophil pct 0.3 % [facility] ([facility]) Comment: Interpretive Data Percent cell count reference ranges are not reported, since discordance with absolute values may lead to misinterpretation of CBC data. Current Interpretive Data was last revised on 2017. Blood 03/06/2025 9:18 PM CDT 03/06/2025 9:41 PM CDT Denny Blackburn MD LAB BLOOD ORDERABLES Final Result [facility] ([facility]UW[facility]) 1 [facility] [place] [address] * (ABNORMAL) CBC with auto differential (03/06/2025 9:18 PM CDT) WBC 11.23(H) 3.80 - 9.90 K/cumm Hgb 12.7 11.9 - 15.5 g/dL [facility] ([facility]) Hct 38.2 35.6 - 45.5 % [facility] ([facility]) Plt 440(H) 150 - 400 K/cumm [facility] ([facility]) MPV 8.9(L) 9.1 - 12.3 fL [facility] ([facility]) RBC 4.39 3.90 - 5.20 M/cumm [facility] ([facility]) MCV 87.0 81.3 - 96.4 fL [facility] ([facility]) MCH 28.9 27.1 - 33.3 pg [facility] ([facility]) MCHC 33.2 32.3 - 35.7 g/dL [facility] ([facility]) RDW CV 13.8 11.1 - 14.9 % [facility] ([facility]) RDW SD 43.3 35.7 - 48.1 fL [facility] ([facility]) NRBC abs 0.00 0.00 - 0.01 K/cumm [facility] ([facility]) Blood 03/06/2025 9:18 PM CDT 03/06/2025 9:41 PM CDT Denny Blackburn MD LAB BLOOD ORDERABLES Final Result [facility] (JUWAN) 1 [facility] [place] [address] * (ABNORMAL) CRP (acute phase) (03/06/2025 9:18 PM CDT) CRP 45.7(H) <=10.0 mg/L Blood 03/06/2025 9:18 PM CDT 03/06/2025 9:41 PM CDT Denny Blackburn MD LAB BLOOD ORDERABLES Final Result Performing Organization Address [facility] Co de Phone Number [facility] (JUWAN) 1 [facility] [place] [address] * (ABNORMAL) Comprehensive metabolic panel (03/06/2025 9:18 PM CDT) Sodium 132(L) 135 - 145 mmol/L Potassium, pl 4.0 3.3 - 4.9 mmol/L [facility] ([facility]) Chloride 95(L) 97 - 110 mmol/L [facility] ([facility]) CO2 24 22 - 32 mmol/L [facility] ([facility]) Anion gap 14 2 - 15 mmol/L [facility] ([facility]) BUN 10 6 - 25 mg/dL [facility] ([facility]) Creatinine 0.47(L) 0.60 - 1.10 mg/dL [facility] ([facility]) Glucose 362(H) 70 - 199 mg/dL [facility] ([facility]) Comment: Interpretive Data Fasting glucose >/= 126 mg/dl is diagnostic for diabetes. Fasting is defined as no caloric intake for at least 8 hours. Fasting glucose between 100 mg/dl to 125 mg/dl is diagnostic of prediabetes. In a patient with classic symptoms of hyperglycemia or hyperglycemic crisis, a random glucose >/= 200 mg/dl is diagnostic for diabetes. In the absence of unequivocal hyperglycemia, results should be confirmed by repeat testing. The classification and Diagnosis of Diabetes Diabetes Care 2021; 46: S19-S40. Current interpretive data was last revised 2022. Calcium 9.7 8.5 - 10.3 mg/dL [facility] Bilirubin, total 0.2 0.1 - 1.2 mg/dL [facility] ([facility]) Protein, pl 7.5 6.5 - 8.5 g/dL [facility] ([facility]) Albumin 4.0 3.5 - 5.0 g/dL [facility] Alk phos 90 40 - 130 Units/L [facility] ([facility] ALT 7 7 - 45 Units/L [facility] ([facility]) AST 7(L) 10 - 45 Units/L [facility] ([facility]) Blood 03/06/2025 9:18 PM CDT 03/06/2025 9:41 PM CDT us Denny Blackburn MD LAB BLOOD ORDERABLES Final Result [facility] ([facility]) 1 [facility] [place] [address] * (ABNORMAL) POCT hemoglobin A1c (02/07/2025 3:57 PM CDT) Hemoglobin A1C, POC 11.3(A) 4.0 - 5.6 % Blood 02/07/2025 3:57 PM CDT us April Byrd NP POINT OF CARE TEST ORDERABLES F inal Result * Albumin Creatinine Ratio, Urine (12/02/2023 11:03 AM CDT) Albumin Ur <12.0 mg/L Comment: Interpretive Data No reference range established. Current interpretive data was last revised 2019. Testing performed by: [address] [address] Creatinine Ur 105.0 mg/dL [facility] ([facility]) Comment: Interpretive Data No reference range established. Current interpretive data was last revised 2019. Testing performed by: [address] [address] Albumin Creatinine Ratio, Ur <11 1 - 29 mg/g [facility] (JUWAN) Comment:Testing performed by : [facility], [address] [place]., [address] Urine 12/02/2023 11:0 3 AM CDT 12/02/2023 3:36 PM CDT us April Byrd NP LAB URINE ORDERABLES Final Resu lt [facility] (JUWAN) 1 [facility] [place] [address] * (ABNORMAL) Lipid panel (12/02/2023 11:03 AM [...] CDT 12/02/2023 1:55 PM CDT Narrative OSVALDO HERNÁNDEZ) - 12/02/2023 2:25 PM CDT These lab test should be done fasting. This means do not eat or drink for at least 12 hours prior to getting your blood drawn. April Bydr NP LAB BLOOD ORDERABLES Final Resu lt [facility] ([facility]) 1 [facility] [place] [address] * Diabetic Eye Exam (10/09/2022) Historical Provider MD HEALTH MAINTENANCE Final Result from Last 3 Months or Most Recently Relevant to Health Maintenance Insurance [facility] Advance Directives For more information, please contact: [phone] * Full Code (Latest Code Status on File) Date Activated Date Inactivated Comments 03/07/2025 12:19 AM 03/07/2025 9:39 PM * Full Code Date Activated Date Inactivated Comments 11/15/2023 7:17 AM 11/15/2023 1:35 PM * Full Code Date Activated Date Inactivated Comments 11/15/2023 7:17 AM 11/15/2023 7:17 AM Care Teams Crown And Bridge Technician Relationship Specialty Start Date End Date Nimco Paz NP [address] [place] [address] PCP - General 07/08/20 Summer Watts MD [address] [place] [id number] Consulting Physician Obstetrics and Gynecology 03/07/25
--- OUTSIDE RECORDS SUMMARY | 2025-05-29 11:45 | XMS_ITS | Clinical Summary ---
Author Organization [facility] Address [address] [place] [address] Phone Care Team Providers Care Excavating Contractor Name Role Phone Leslie Avila APRN, SHAINA Unavailable [phone] Nimco Paz APRN, CNP Primary Care Provider [phone] Allergies Active Allergy Reactions Criticality Noted Date [...] 04/30/2023 Hypoventilation associated with obesity syndrome 04/30/2023 Encounters Date Type Department Care Team Description 03/27/2025 Transcribe Orders [facility] Central Scheduling [address] [place] [address] Paz, Nimco, RELASTER, MATE RELIEF Mass of left breast, unspecified quadrant (Primary Dx) 03/27/2025 Transcribe Orders [facility] Central Scheduling [address] [place] [address] Paz, Nimco, RELASTER, MATE RELIEF Mass of left breast, unspecified quadrant (Primary Dx) from Last 3 Months Family History Medical History Relation Name Comments [...] 2 - PCV) 2005 Pap Smear 2007 Human Papillomavirus (HPV) Immunization (1 - 3-dose SCDM series) 2013 Cervical Cancer Screening (CCS) 01/19/2016 HPV/Cotest 01/19/2016 Influenza Immunization (#1) 05/07/202506/07, 06/11/2021, 06/06/2020, Additional history exists SARS-COV-2 Immunization ( season) 2025 05/29/2021, 04/23/2021 Respiratory Syncytial Virus (RSV) Immunization (Adult) (1 - 1-dose 75+ series) 2061 DTaP/Tdap/Td Immunization Discontinued 05/25/2000 Meningococcal Immunization (ACWY) Aged Out No longer eligible based on patient's age to complete this topic Rotavirus Immunization Aged Out No lo nger eligible based on patient's age to complete this topic Insurance MEDICAID [place] Care Teams Excavating Contractor Relationship Specialty Start Date End Date Nimco Paz APRN, SHAINA [address] [address] PCP - General Family Medicine 12/14/23 Leslie Avila APRN, SHAINA [address] [address] Nurse Practitioner Advanced Practice Nurse 04/30/23
--- OUTSIDE RECORDS SUMMARY | 2025-05-29 11:45 | XMS_ITS | Encounter Summary ---
Author Organization [facility] Address [address] [place] [address] Phone Care Team Providers Care Retirement Plan Specialist Name Role Phone Nimco Paz APRN, SHAINA Primary Care Provider [phone] Melania Woodard MD Primary Care Provide r Leslie Avila APRN, CNP Unavailable Nimco Paz APRN, CNP Primary Care Provider [phone] Reason for Visit * Reason Comments Medication Refill Encounter Details Date Type Department Care Team (Late st Contact Info) Description 05/17/2023 Refill [facility] - Pulmonology & Sleep Medicine [facility] [address] [place] [address] Leslie Avila APRN, CNP [address] [address] Medication Refill Social History Tobacco Use Types [...] 07/27/23 Appointment Leslie Avila APRN, CNP [facility] [place] Irvin Showing future appointments within next 90 days and meeting all other requirements documented in this encounter Plan of Treatment Not on file documented as of this encounter Visit Diagnoses Not on filedocumented in this encounter Care Teams Retirement Plan Specialist Relationship Specialty Start Date End Date Nimco Paz APRN, CNP PCP - General Family Medicine 06/19/20 09/06/23 Melania Woodard MD [address] [place] [address] [place] [place] [address] PCP - General Family Medicine 09/07/23 12/13/23 Nimco Paz APRN, CNP PCP - General Family Medicine 12/14/23 Leslie Avila APRN, IMPORT CUSTOMER SERVICE MANAGER [address] [address] Nurse Practitioner Advanced Practice Nurse 04/30/23 documented as of this encounter
[2025-05-29 11:51] LABS: Alanine Aminotransferase 17 U/L (6-35); Albumin Level 4.2 g/dL (3.5-5.1); Alkaline Phosphatase 86 U/L (38-126); Anion Gap 10 mmol/L (4-12); Aspartate Amino Transferase 22 U/L (14-36); Bilirubin,Total 0.4 mg/dL (0.2-1.3); Blood Urea Nitrogen 10 mg/dL (7-17); Calcium 8.9 mg/dL (8.4-10.2); Carbon Dioxide 24 mmol/L (22-30); Chloride 99 mmol/L (98-107); Estimated CRCL calculation 237 ml/min; Estimated Glomerular Filt Rate > 60; Glucose 342 mg/dL (65-110); Lipase 62 U/L (23-300); Potassium 4.0 mmol/L (3.4-5.0); Sodium 133 mmol/L (137-145); Total Protein 7.8 g/dL (6.3-8.2)
[2025-05-29 11:54] LABS: INR 1.0; Prothrombin Time 13.4 Seconds (11.1-14.7)
[2025-05-29 11:55] LABS: Partial Thromboplastin Time 30.1 Seconds (22.3-36.8)
[2025-05-29 12:01] LABS: Troponin I < 0.012 ng/mL (0.000-0.034)
--- OUTSIDE RECORDS SUMMARY | 2025-05-29 12:30 | XMS_ITS | Encounter Summary ---
Author Organization [facility] Address [address] [place] [address] Phone Care Team Providers Care Project Portfolio Analyst Name Role Phone Leslie Avila APRN, CNP Unavailable Nimco Paz APRN, CNP Primary Care Provider [phone] Reason for Visit * Reason Comments Medication Refill Encounter Details Date Type Department Care Team (Late st Contact Info) Description 01/08/2024 Refill [facility] - Pulmonology & Sleep Medicine - [place] [address] [place] [address] Leslie Avila APRN, CNP [address] [address] Medication Refill Social History Tobacco Use Types [...] Office Visit Leslie Avila APRN, CNP [facility] [place] 04/30/23 Office Visit [...] on filedocumented in this encounter Care Teams Project Portfolio Analyst Relationship Specialty Start Date End Date Nimco Paz APRN, CNP [address] [address] PCP - General Family Medicine 12/14/23 Leslie Avila APRN, CNP [address] [address] Nurse Practitioner Advanced Practice Nurse 04/30/23 documented as of this encounter
--- OUTSIDE RECORDS SUMMARY | 2025-05-29 12:30 | XMS_ITS | Clinical Summary ---
Author Organization [facility] Address [address] [place] [address] Care Team Providers Care Flat Polisher Name Role Phone Nimco Paz NP Primary Care Provider Summer Watts MD Unavailable [phone] Allergies Active Allergy Reactions Criticality Noted Date [...] afford it without insurance. Forms provided for [employer] patient assistance program. Will try to get [...] her bowel issues flare. Ambulatory referral to [facility] medical weight management clinic She has [...] (10/15/2021): Added automatically from request for surgery [id number] Encounters Date Type Department Care Team Description 04/28/2025 1:23 PM CDT - 04/28/2025 6:22 PM CDT Emergency [facility] Emergency Department [address] [place] [address] Feliciano Lynch MD Adnexal mass (Primary Dx); Chronic abdominal pain; Decreased appetite Discharge Disposition: Discharge to home or self care 04/25/2025 8:38 AM CDT - 04/25/2025 11:42 AM CDT Emergency [facility] Emergency Department [address] [place] [address] Viral gastroenteritis (Primary Dx) Discharge Disposition: Discharge to home or self care 03/06/2025 8:47 PM CDT - 03/07/2025 5:30 PM CDT Hospital Encounter [facility] Medical Care [address] [place] [address] Denny Blackburn MD Taylor, MD Mira Dunbar [...] drink = 0.6 oz pur e alcohol) [employer] Utilities Answer Date Recorded In the past 12 months has [employer], gas, oil, or water [employer] threatened to shut off services in your [...] often do you attend chur ch or anabaptist services? 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 AT: AT Report ID: [id number] Reading Location: [id number] Procedure Note Julio Gamino MD - 04/28/2025 [...] Julio Gamino M.D. AT: AT Report ID: [id number] Reading Location: [id number] us Feliciano Lynch MD IMG CT PROCEDURES [...] hs delta 0 ng/L [facility] ([place]) Trop T hs interp Insignificant [facility] ([place]) Blood 04/28/2025 2:59 PM CDT 04/28/2025 3:02 PM CDT us Edwin Gamino MD LAB BLOOD ORDERABLES Final Result [facility] ([place]) 1 [facility] [place] [address] * D-dimer, quantitative (04/28/2025 2:59 PM CDT) D-Dimer 408 <=499 ng/mL FEU [facility] ([place]) Comment: Interpretive data FDA approved the D-dimer, [...] BLOOD ORDERABLES Final R esult [facility] ([place]) 1 [facility] [place] [address] * XR Spine Lumbar 2 or 3 [...] from previous. No compression deformity or subluxation. Ebum-yv-lcgkyjjg endplate degenerative changes thoracolumbar junction primarily. SI joints are unremarkable. Paravertebral soft tissues are unremarkable. IMPRESSION: Moderately severe thoracolumbar scoliosis and degenerative changes. THIS IS AN ELECTRONICALLY VERIFIED FINAL REPORT 04/28/2025 2:35 PM - Electronically signed by Adam Lobato M.D. RB: RB Report ID: [id number] Reading Location: [id number] Procedure Note Adam Lobato MD - 04/28/2025 [...] from previous. No compression deformity or subluxation. Aahh-at-coelpyqd endplate degenerative changes thoracolumbar junction primarily. SI joints are unremarkable. Paravertebral soft tissues are unremarkable. IMPRESSION: Moderately severe thoracolumbar scoliosis and degenerative changes. THIS IS AN ELECTRONICALLY VERIFIED FINAL REPORT 04/28/2025 2:35 PM - Electronically signed by Adam Lobato M.D. RB: RB Report ID: [id number] Reading Location: [id number] us Feliciano Lynch MD IMG XR PROCEDURES [...] Adam Lobato M.D. RB: RB Report ID: [id number] Reading Location: [id number] Procedure Note Adam Lobato MD - 04/28/2025 [...] Adam Lobato M.D. RB: RB Report ID: [id number] Reading Location: [id number] Feliciano Lynch MD IMG XR PROCEDURES Final Resu lt * Troponin T high-sensitivity series (baseline, 2hr, 4hr, 6hr) (04/28/2025 1:08 PM CDT) Trop T hs <6 <=14 ng/L [facility] ([place]) Comment: Interpretive Data For further hscTnT resources including the diagnostic algorithm and an aid in interpretation, copy and paste this link: https://nrl.testcatalog.org/show/hsTrop Current Interpretive Data last revised 2020. Blood 04/28/2025 1:08 PM CDT 04/28/2025 1:30 PM CDT Feliciano Lynch MD LAB BLOOD ORDERABLES Final R esult [facility] ([place]) 1 [facility] Department [place] [address] * eGFR (04/28/2025 1:08 PM CDT) eGFR [...] CDT 04/28/2025 1:30 PM CDT us Edwin Gamino MD LAB BLOOD ORDERABLES Final Result [facility] ([place]) 1 [facility] Department of Laboratories [place], [place] [id number] * (ABNORMAL) Differential, auto (04/28/2025 1:08 PM CDT) Neutrophil abs 10.07(H) 1.50 - 6.50 K/cumm Imm gran abs 0.06 0.00 - 0.10 K/cumm [facility] ([place]) Lymphocyte abs 2.13 0.80 - 3.30 K/cumm [facility] ([place]) Monocyte abs 0.37 0.20 - 0.80 K/cumm [facility] ([place]) Eosinophil abs 0.08 0.00 - 0.50 K/cumm [facility] ([place]) Basophil abs 0.03 0.00 - 0.10 K/cumm [facility] ([place]) Neutrophil pct 79.1 % [facility] ([place]) Comment: Interpretive Data Percent cell count reference ranges are not reported, since discordance with absolute values may lead to misinterpretation of CBC data. Current Interpretive Data was last revised on 2017. Imm gran pct 0.5 % [facility] ([place]) Comment: Interpretive Data Percent cell count reference ranges are not reported, since discordance with absolute values may lead to misinterpretation of CBC data. Current Interpretive Data was last revised on 2017. Lymphocyte pct 16.7 % [facility] ([place]) Comment: Interpretive Data Percent cell count reference ranges are not reported, since discordance with absolute values may lead to misinterpretation of CBC data. Current Interpretive Data was last revised on 2017. Monocyte pct 2.9 % [facility] ([place]) Comment: Interpretive Data Percent cell count reference ranges are not reported, since discordance with absolute values may lead to misinterpretation of CBC data. Current Interpretive Data was last revised on 2017. Eosinophil pct 0.6 % [facility] ([place]) Comment: Interpretive Data Percent cell count reference [...] ORDERABLES Final Result [facility] ([place]) 1 [facility] [place] [address] * (ABNORMAL) CBC with auto differential (04/28/2025 [...] Final R esult [facility] ([place]) 1 [facility] [place] [address] * Lipase (04/28/2025 1:08 PM CDT) Lipase 10 10 - 99 Units/L [facility] ([place]) Blood Venous blood specimen / Unknown 04/28/2025 1:08 PM CDT 04/28/2025 1:30 PM CDT Feliciano Lynch MD LAB BLOOD ORDERABLES Final R esult Performing Organization Address City/[facility]/ZIP Co de Phone Number [facility] ([place]) 1 [facility] [place] [address] * (ABNORMAL) Comprehensive metabolic panel (04/28/2025 1:08 PM CDT) Sodium 141 135 - 145 mmol/L [facility] ([place] Potassium, pl 3.7 3.3 - 4.9 mmol/L [facility] ([place]) Chloride 101 97 - 110 mmol/L [facility] ([place]) CO2 21(L) 22 - 32 mmol/L [facility] ([place]) Anion gap 19(H) 2 - 15 mmol/L [facility] ([place]) [...] ORDERABLES Final R esult Performing Organization Address [facility] Co de Phone Number [facility] ([place]) [address] [place] [address] Department [place] [address] * ECG 12 lead (04/28/2025 1:07 PM CDT) 04/28/2025 1:07 PM CDT Narrative [facility] - 04/30/2025 6:45 AM CDT Vent Rate: 91 bpm RR Interval: 653 msec [place] Interval: 167 msec QRS Duration: 90 msec QT Interval: 374 msec QTC Interval: 423 msec P-R-T [place]: 57 - -21 - 27 degrees IMPRESSION: SINUS RHYTHM POSSIBLE ANTERIOR MYOCARDIAL INFARCTION , PROBABLY OLD [30 ms Q WAVE IN V3/V4, OR R < 0.2 mV IN V4] BORDERLINE ECG NO CHANGE FROM PREVIOUS TRACING NOTED Electronically Signed By: Julio Ramirez MD Feliciano Lynch MD ECG ORDERABLES Final Result Performing Organization Address [facility] de Phone Number [facility] [employer] [facility] * (ABNORMAL) Urinalysis reflex to microscopic and [...] tendency for uric acid stone formation. Source: [facility] Current Interpretive Data was last revised [...] Reflex to microscopic UA will be performed. [facility] ([place]) Urine 04/25/2025 11:1 4 AM CDT 04/25/2025 11:20 AM CDT Timbo LEGGETT LAB MICROBIOLOGY - NERAL ORDERABLES Final Result [facility] ([place]) 1 [facility] Department [place] [address] * (ABNORMAL) Urinalysis, microscopic only (04/25/2025 11:14 [...] ORDERABLES Final Result [facility] ([place]) 1 [facility] Department [place] [address] * CT Abdomen Pelvis W Contrast (04/25/2025 [...] Todd Harkins M.D. LB: ZACK Report ID: [id number] Reading Location: [id number] Procedure Note Todd Harkins MD - 04/25/2025 [...] measuring 5 cm previously measured 2.3 cm [id number]. Follow-up pelvic ultrasound is recommended. THIS IS AN ELECTRONICALLY VERIFIED FINAL REPORT 04/25/2025 11:01 AM - Electronically signed by Todd Harkins M.D. LB: ZACK Report ID: [id number] Reading Location: [id number] us Timbo LEGGETT IMG CT PROCEDURES Fin [...] ORDERABLES Final Result [facility] ([place]) 1 [facility] Department [place] [address] * eGFR (04/25/2025 8:52 AM CDT) eGFR [...] LAB BLOOD ORDERABLES Final Result [facility] ([place]) 1 [facility] Department [place] [address] * (ABNORMAL) Differential, auto (04/25/2025 8:52 AM [...] ORDERABLES Final Result [facility] ([place]) 1 [facility] Department [place] [address] * (ABNORMAL) CBC with auto differential (04/25/2025 [...] BLOOD ORDERABLES Final Result Performing Organization Address City/[facility] Co de Phone Number [facility] ([place]) 1 [facility] [place] [address] * hCG, blood, quantitative (04/25/2025 8:52 AM [...] CDT 04/25/2025 9:43 AM CDT us Hattie aBnegas MD LAB BLOOD ORDERABLES Nalini l Result [facility] ([place]) 1 [facility] [place] [address] * Lipase (04/25/2025 8:52 AM CDT) Lipase 14 10 - 99 Units/L [facility] ([place]) Blood 04/25/2025 8:52 AM CDT 04/25/2025 8:55 AM CDT Timbo LEGGETT LAB BLOOD ORDERABLES Final Result [facility] ([place]) 1 [facility] Department [place] [address] * (ABNORMAL) Comprehensive metabolic panel (04/25/2025 8:52 [...] BLOOD ORDERABLES Final Result Performing Organization Address [facility] Co de Phone Number [facility] ([place]) 1 [facility] [employer] [place] [address] * ECG 12 lead (04/25/2025 8:51 AM CDT) 04/25/2025 8:51 AM CDT Narrative [facility] - 04/25/2025 10:52 AM CDT Vent Rate: 104 bpm RR Interval: 575 msec [place] Interval: 154 msec QRS Duration: 98 msec QT Interval: 351 msec QTC Interval: 411 msec P-R-T [place]: 65 - 18 - 39 degrees IMPRESSION: SINUS TACHYCARDIA POSSIBLE ANTERIOR MYOCARDIAL INFARCTION , OF INDETERMINATE AGE [30 ms Q WAVE IN V3/V4, OR R < 0.2 mV IN V4] ABNORMAL ECG NO CHANGE FROM PREVIOUS TRACING NOTED Electronically Signed By: Julio Ramirez MD Timbo LEGGETT ECG ORDERABLES Final Result Performing Organization Address [facility] de Phone Number [facility] * POCT glucose (03/07/2025 5:01 PM CDT) Glucose, POC 139 70 - 199 mg/dL Blood 03/07/2025 5:01 PM CDT 03/07/2025 5:01 PM CDT Manjula Meyers MD LAB POCT ORDERABLES - DEV ICE Final Result Performing Organization Address [facility] Co de Phone Number [facility] ([place]) 1 [facility] Department [place] [address] * Troponin T high-sensitivity (03/07/2025 11:52 AM [...] BLOOD ORDERABLE S Final Result [facility] ([place]) 1 [facility] [place] [address] * POCT glucose (03/07/2025 11:33 AM CDT) Glucose, POC 183 70 - 199 mg/dL Blood 03/07/2025 11:3 3 AM CDT 03/07/2025 11:33 AM CDT us Manjula Meyers MD LAB POCT ORDERABLES - DEV ICE Final Result Performing Organization Address [facility]/ZIP Co de Phone Number [facility] ([place]) 1 [facility] [place] [address] * (ABNORMAL) POCT glucose (03/07/2025 8:04 AM CDT) Glucose, POC 261(H) 70 - 199 mg/dL Blood 03/07/2025 8:04 AM CDT 03/07/2025 8:04 AM CDT us Summer Watts MD LAB POCT ORDERABLES - DEVICE Final Result Performing Organization Address City/[facility]/ZIP Co de Phone Number [facility] ([place]) 1 [facility] [place] [address] * eGFR (03/07/2025 5:30 AM CDT) eGFR [...] LAB BLOOD ORDERABLE S Final Result [facility] ([place]) 1 [facility] Department [place] [address] * (ABNORMAL) Differential, auto (03/07/2025 5:30 AM [...] 2017. Basophil pct 0.4 % [facility] ([place]) Comment: Interpretive Data Percent cell count reference ranges are not reported, since discordance with absolute values may lead to misinterpretation of CBC data. Current Interpretive Data was last revised on 2017. Blood 03/07/2025 5:30 AM CDT 03/07/2025 5:51 AM CDT us Summer Watts MD LAB BLOOD ORDERABLE S Final Result [facility] ([place]) 1 [facility] Department [place] [address] * (ABNORMAL) CBC with auto differential (03/07/2025 [...] S Final Result [facility] ([place]) 1 [facility] Department [place] [address] * (ABNORMAL) Comprehensive metabolic panel (03/07/2025 5:30 [...] S Final Result [facility] ([place]) 1 [facility] [place] [address] * (ABNORMAL) POCT glucose (03/07/2025 5:14 AM CDT) [facility] Signature Glucose, POC 336(H) 70 - 199 mg/dL Blood 03/07/2025 5:14 AM CDT 03/07/2025 5:14 AM CDT us Summer Watts MD LAB POCT ORDERABLES - DEVICE Final Result [facility] ([place]) 1 [facility] [place] [address] * (ABNORMAL) POCT glucose (03/07/2025 2:15 AM CDT) Glucose, POC 307(H) 70 - 199 mg/dL Blood 03/07/2025 2:15 AM CDT 03/07/2025 2:15 AM CDT us Summer Watts MD LAB POCT ORDERABLES - DEVICE Final Result [facility] ([place]) 1 [place] [address] * (ABNORMAL) POCT glucose (03/06/2025 11:56 PM CDT) [facility] Signature Glucose, POC 353(H) 70 - 199 mg/dL Blood 03/06/2025 11:5 6 PM CDT 03/06/2025 11:56 PM CDT us Summer Watts MD LAB POCT ORDERABLES - DEVICE Final Result [facility] ([place]) 1 [place] [address] * (ABNORMAL) Aerobic culture and gram stain Abscess Labia (03/06/2025 10:49 PM CDT) Direct Specimen Exam Stain: Few polymorphonuclear leukocytes seen. Rare Gram Positive Cocci Comment:Testing performed by : [facility], [address] [facility] [place] [address] Report Final Report: Few Mixed genitourinary tract microorganisms. (.) [facility] ([place]) Comment:Testing performed by : [facility], [address] [facility] [place] [address] Organism MIXED GENITOURINARY TRACT MICROORGANISMS. [facility] ([place]) Abscess (Labia) 03/06/2025 1 0:49 PM CDT 03/07/2025 2:09 AM CDT Narrative [facility] ([place]) - 03/11/2025 2:35 PM CDT Specimen received on an ESwab. Testing performed by [facility] ([phone]) Specimens submitted from normally sterile body sites [...] ORDERABLES Final Result [facility] ([place]) 1 [facility] Department [place] [address] * eGFR (03/06/2025 9:18 PM [...] LAB BLOOD ORDERABLES Final Result [facility] ([place]) 1 [facility] Department of Laboratories [place], [place] [address] * (ABNORMAL) Differential, auto (03/06/2025 9:18 PM CDT) Neutrophil abs 8.04(H) 1.50 - 6.50 K/cumm Imm gran abs 0.04 0.00 - 0.10 K/cumm [facility] ([place]) Lymphocyte abs 2.53 0.80 - 3.30 K/cumm [facility] ([place]) Monocyte abs 0.45 0.20 - 0.80 K/cumm [facility] ([place]) Eosinophil abs 0.14 0.00 - 0.50 K/cumm [facility] ([place]) Basophil abs 0.03 0.00 - 0.10 K/cumm [facility] ([place]) Neutrophil pct 71.6 % [facility] ([place]) Comment: Interpretive Data Percent cell count reference ranges are not reported, since discordance with absolute values may lead to misinterpretation of CBC data. Current Interpretive Data was last revised on 2017. Imm gran pct 0.4 % [facility] ([place]) Comment: Interpretive Data Percent cell count reference ranges are not reported, since discordance with absolute values may lead to misinterpretation of CBC data. Current Interpretive Data was last revised on 2017. Lymphocyte pct 22.5 % [facility] ([place]) Comment: Interpretive Data Percent cell count reference ranges are not reported, since discordance with absolute values may lead to misinterpretation of CBC data. Current Interpretive Data was last revised on 2017. Monocyte pct 4.0 % [facility] ([place]) Comment: Interpretive Data Percent cell count reference ranges are not reported, since discordance with absolute values may lead to misinterpretation of CBC data. Current Interpretive Data was last revised on 2017. Eosinophil pct 1.2 % [facility] ([place]) Comment: Interpretive Data Percent cell count reference [...] ORDERABLES Final Result [facility] ([place]) 1 [facility] [place] [address] * (ABNORMAL) CBC with auto differential (03/06/2025 [...] ORDERABLES Final Result [facility] ([place]) 1 [facility] [place] [address] * (ABNORMAL) CRP (acute phase) (03/06/2025 9:18 PM CDT) CRP 45.7(H) <=10.0 mg/L Blood 03/06/2025 9:18 PM CDT 03/06/2025 9:41 PM CDT Denny Blackburn MD LAB BLOOD ORDERABLES Final Result Performing Organization Address [facility] Co de Phone Number [facility] ([place]) 1 [facility] [place] [address] * (ABNORMAL) Comprehensive metabolic panel (03/06/2025 9:18 PM CDT) Sodium 132(L) 135 - 145 mmol/L Potassium, pl 4.0 3.3 - 4.9 mmol/L [facility] ([place]) Chloride 95(L) 97 - 110 mmol/L [facility] CO2 24 22 - 32 mmol/L [facility] ([place]) Anion gap 14 2 - 15 mmol/L [facility] ([place]) BUN 10 6 - 25 mg/dL [facility] ([place]) Creatinine 0.47(L) 0.60 - 1.10 mg/dL [facility] ([place]) Glucose 362(H) 70 - 199 mg/dL [facility] ([place]) Comment: Interpretive Data Fasting [...] 2022. Calcium 9.7 8.5 - 10.3 mg/dL [facility] Bilirubin, total 0.2 0.1 - 1.2 mg/dL [facility] ([place]) Protein, pl 7.5 6.5 - 8.5 g/dL [facility] ([place]) Albumin 4.0 3.5 - 5.0 g/dL [facility] Alk phos 90 40 - 130 Units/L [facility] ([place]) ALT 7 7 - 45 Units/L [facility] ([place]) AST 7(L) 10 - 45 Units/L [facility] ([place]) Blood 03/06/2025 9:18 PM CDT 03/06/2025 9:41 PM CDT us Denny Blackburn MD LAB BLOOD ORDERABLES Final Result [facility] ([place]) 1 [facility] Department [place] [address] * (ABNORMAL) POCT hemoglobin A1c (02/07/2025 3:57 [...] was last revised 2019. Testing performed by: [address] [address] Creatinine Ur 105.0 mg/dL [facility] ([place]) Comment: Interpretive Data No reference range established. Current interpretive data was last revised 2019. Testing performed by: [address] [address] Albumin Creatinine Ratio, Ur <11 1 - 29 mg/g [facility] ([place]) Comment:Testing performed by : [facility], [address] [place]., [address] Urine 12/02/2023 11:0 3 AM CDT 12/02/2023 3:36 PM CDT us April Byrd NP LAB URINE ORDERABLES Final Resu lt [facility] ([place]) 1 [facility] [place] [address] * (ABNORMAL) Lipid panel (12/02/2023 11:03 AM [...] BLOOD ORDERABLES Final Resu lt [facility] ([place]) 1 [facility] [place] [address] * Diabetic Eye Exam (10/09/2022) Historical Provider MD HEALTH MAINTENANCE Final Result from Last 3 Months or Most Recently Relevant to Health Maintenance Insurance [facility] Advance Directives For more information, please contact: [phone] * Full Code (Latest Code Status on File) Date Activated Date Inactivated Comments 03/07/2025 12:19 AM 03/07/2025 9:39 PM * Full Code Date Activated Date Inactivated Comments 11/15/2023 7:17 AM 11/15/2023 1:35 PM * Full Code Date Activated Date Inactivated Comments 11/15/2023 7:17 AM 11/15/2023 7:17 AM Care Teams Flat Polisher Relationship Specialty Start Date End Date Nimco Paz NP [address] [place] [address] PCP - General 07/08/20 Summer Watts MD [address] [facility] [address] [place] [id number] Consulting Physician Obstetrics and Gynecology 03/07/25
--- OUTSIDE RECORDS SUMMARY | 2025-05-29 12:31 | XMS_ITS | Clinical Summary ---
Author Organization [facility] Address [address] [place] [address] Phone Care Team Providers Care Vice President Sales Name Role Phone Leslie Avila APRN, SHAINA Unavailable [phone] Nimco Paz APRN, CNP Primary Care Provider [phone] Allergies Active Allergy Reactions Criticality Noted Date [...] Department Care Team Description 03/27/2025 Transcribe Orders [facility] Central Scheduling [address] [place] [address] Paz, Nimco, MANAGER BENCH, CREDIT COLLECTIONS REP Mass of left breast, unspecified quadrant (Primary Dx) 03/27/2025 Transcribe Orders [facility] Central Scheduling [address] [place] [address] Paz, Nimco, MANAGER BENCH, CREDIT COLLECTIONS REP Mass of left breast, unspecified quadrant (Primary [...] this topic Insurance MEDICAID [place] Care Teams Vice President Sales Relationship Specialty Start Date End Date Nimco Paz APRN, SHAINA [address] [address] PCP - General Family Medicine 12/14/23 Leslie Avila APRN, SHAINA [address] [facility] [address] [address] Nurse Practitioner Advanced Practice Nurse 04/30/23
--- OUTSIDE RECORDS SUMMARY | 2025-05-29 12:31 | XMS_ITS | Encounter Summary ---
Author Organization [facility] Address [address] [place] [address] Phone Care Team Providers Care Gunner Mate Name Role Phone Nimco Paz APRN, SHAINA Primary Care Provider [phone] Melania Woodard MD Primary Care Provide r Leslie Avila APRN, CNP Unavailable [phone] Nimco Paz APRN, CNP Primary Care Provider [phone] Reason for Visit * Reason Comments Medication Refill Encounter Details Date Type Department Care Team (Late st Contact Info) Description 05/17/2023 Refill [facility] - Pulmonology & Sleep Medicine [facility] [address] [place] [address] Leslie Avila APRN, CNP #[address] [address] Medication Refill Social History Tobacco Use Types [...] on filedocumented in this encounter Care Teams Gunner Mate Relationship Specialty Start Date End Date Nimco Paz APRN, CNP PCP - General Family Medicine 06/19/20 09/06/23 Melania Woodard MD [address] [place] [address] [place] [address] PCP - General Family Medicine 09/07/23 12/13/23 Nimco Paz APRN, CNP PCP - General Family Medicine 12/14/23 Leslie Avila APRN, REMODELER [id number] [address] Nurse Practitioner Advanced Practice Nurse 04/30/23 documented as of this encounter
--- NOTE | 2025-05-29 13:58 | ECG_ITS ---
Test Date: 2025-05-29 14:04:41 Measurements Intervals [place] Rate: 92 P: 31 CO: 163 QRS: 4 QRSD: 94 T: 14 QT: 370 QTc: 460 Interpretive Statements SINUS RHYTHM Compared to ECG 05/29/2025 11:04:23 Poor R-wave progression no longer present Electronically Signed On 05-29-2025 17:15:08 CDT by Grant Price M.D.
--- NOTE | 2025-05-29 14:03 | ED.GENADULT ---
HPI - General Adult General Chief complaint: Chest Pain Stated complaint: severe chest pain, lightheaded Time Seen by Provider: 05/29/25 11:10 History of Present Illness HPI narrative: This is a 40-year-old female presenting ED with chief complaint of chest pain. Patient said she developed chest pain at 930 this morning while walking. It is a sharp pain that radiates around the left side of her chest into her back. Is associated with shortness of breath. It is constant. She has not taken anything for pain. She has had chest pain like this around 5 years ago and they never determined cause. Patient says that associated with shortness of breath. Patient also states that she has been vomiting 3 4 times a day every day for the last 3 weeks. She says that it is difficult for her to eat anything at all w/o getting sick. She has appointment to see a GI doctor in the next week or so. Patient denies fevers abdominal pain diarrhea lower extremity edema risk factors for DVT/PE recent viral illness productive cough. Related Data Home Medications ?Medication ?Instructions ?Recorded ?Confirmed ?Last Taken ?Type albuterol sulfate 90 mcg/actuation 1 inh inhalation Q4H PRN Shortness 10/29/20 08/14/21 02/03/21 History aerosol inhaler (Ventolin HFA) Of Breath blood sugar diagnostic (Blood #10 ea 10/29/20 08/14/21 02/03/21 History Glucose Test strips) dicyclomine 20 mg tablet 20 mg PO BID 10/29/20 08/14/21 02/03/21 History glimepiride 4 mg tablet 4 mg PO BID 10/29/20 08/14/21 02/04/21 08:00 History hydrochlorothiazide 25 mg tablet 25 mg PO DAILY 10/29/20 08/14/21 02/04/21 08:00 History baclofen 10 mg tablet 10 mg PO TID 11/08/20 08/14/21 02/03/21 History atenolol 25 mg tablet mg 10/11/23 Unknown History atorvastatin 10 mg tablet mg 10/11/23 Unknown History buspirone 7.5 mg tablet mg 10/11/23 Unknown History cholestyramine (with sugar) 4 gram ea 10/11/23 Unknown History powder for susp in a packet dulaglutide 0.75 mg/0.5 mL mg subcut 10/11/23 Unknown History subcutaneous pen injector (Trulicity) escitalopram oxalate 5 mg tablet mg 10/11/23 Unknown History famotidine 40 mg tablet mg 10/11/23 Unknown History hydrocortisone 2.5 % topical cream 10/11/23 Unknown History with perineal applicator insulin glargine 100 unit/mL (3 unit subcut 10/11/23 Unknown History mL) subcutaneous pen (Lantus Solostar U-100 Insulin) insulin lispro 100 unit/mL subcut 10/11/23 Unknown History subcutaneous pen (Humalog KwikPen (U-100) Insulin) losartan 50 mg tablet mg 10/11/23 Unknown History ondansetron HCl 8 mg tablet mg 10/11/23 Unknown History sennosides 8.6 mg-docusate sodium PO 10/11/23 Unknown History 50 mg tablet (Senexon-S) trazodone 150 mg tablet mg 10/11/23 Unknown History varenicline tartrate 1 mg tablet mg 10/11/23 Unknown History baclofen 10 mg tablet mg 05/02/24 Unknown History ipratropium 0.5 mg-albuterol 3 mg ml inhalation 05/02/24 Unknown History (2.5 mg base)/3 mL nebulization soln irbesartan 150 mg tablet mg 05/02/24 Unknown History Allergies Allergy/AdvReac Type Severity Reaction Status Date / Time metformin Allergy Mild Diarrhea Verified 01/08/25 10:24 venom-wasp Allergy Mild unknown Verified 01/08/25 10:24 terbutaline Allergy Unknown Hyperactive Verified 01/08/25 10:24 haloperidol (From Haldol) Allergy Difficulty Verified 01/08/25 10:[address] [facility] Past Medical History Medical History Morbid obesity Tobacco abuse Diabetes 1.5, managed as type 2 Nausea Blood in stool Rectal pain Diarrhea Gallbladder & bile duct stone with obstruction Gallstones Infection of caesarean section or perineal wound High blood pressure Blood clot in vein Asthma Anxiety Anemia GERD (gastroesophageal reflux disease) Surgical History Surgical History History of cholecystectomy Previous section x2 Family History Family History Other Family history of renal disease Social History Social History Smoking packs per day: 1.5 Smoking cigarettes per day: 30.0 Years smoked: 5 Smoking pack-years: 7.50 Smoking status: Current every day smoker Tobacco type: cigarettes and e-cigarettes/vaping Additional smoking assessment comments: former cigarette smoker presently vapes Alcohol intake: never Substance use: never Substance use type: does not use Living arrangements: with family Occupation/Education: occupation Gender identity (if verbalized by the patient): Female Spiritual care concerns: No Exam Narrative: APPEARANCE: Morbidly obese, no apparent distress, Head: atraumatic. EYES: EOMI, NOSE: Atraumatic NECK: Trachea midline RESPIRATORY: No increased rate of breathing, under% on room air, speaking in full sentences CARDIOVASCULAR: RRR, no obvious peripheral edema although exam limited by body habitus ABDOMINAL: Non-distended obese nontender MUSCULOSKELETAl: No obvious deformities NEURO: Alert. Moving 4/4 extremities SKIN:: Warm, dry. Normal color, no crepitus over the chest or back PSYCHIATRIC: Normal affect Course Vital Signs Vital signs: Vital Signs Temperature 97.9 F 05/29/25 10:58 Pulse Rate 99 05/29/25 10:58 Respiratory Rate 19 05/29/25 10:58 Blood Pressure 170/92 H 05/29/25 10:58 Pulse Oximetry 99 05/29/25 10:58 Oxygen Delivery Room Air 05/29/25 10:58 Temperature 98.0 F 05/29/25 11:17 Pulse Rate 95 05/29/25 13:13 Respiratory Rate 17 05/29/25 13:13 Blood Pressure 116/66 05/29/25 13:13 Pulse Oximetry 100 05/29/25 13:13 Oxygen Delivery Room Air 05/29/25 11:26 Medical Decision Making [facility] Narrative Medical decision making narrative: -Course: 40-year-old female presenting with chest pain the setting of daily vomiting for approximately 3 weeks. Overall she is well-appearing in no significant distress. Dimer was negative and patient is lower risk per Wells criteria. Troponins negative x2. EKG without ischemic changes. Will obtain a CT chest with contrast to evaluate for esophageal rupture. CT of the chest with contrast did not reveal any acute findings in the chest. No findings consistent with esophageal rupture. Results were discussed with patient. She is following up with GI shortly. She will be discharged with antiemetics and Pepcid. -DDX includes but is not limited to: Esophageal rupture, esophageal spasm, esophagitis, GERD, PE, pleurisy ACS, pneumonia Vital Signs Vital Signs: Vital Signs Temperature 97.9 F 05/29/25 10:58 Pulse Rate 99 05/29/25 10:58 Respiratory Rate 19 05/29/25 10:58 Blood Pressure 170/92 H 05/29/25 10:58 Pulse Oximetry 99 05/29/25 10:58 Oxygen Delivery Room Air 05/29/25 10:58 Temperature 98.0 F 05/29/25 11:17 Pulse Rate 95 05/29/25 13:13 Respiratory Rate 17 05/29/25 13:13 Blood Pressure 116/66 05/29/25 13:13 Pulse Oximetry 100 05/29/25 13:13 Oxygen Delivery Room Air 05/29/25 11:26 Lab Data 05/29/25 11:28 05/29/25 11:28 Labs: Lab Results 05/29/25 05/29/25 Range/Units 11:28 14:14 WBC 11.1 H (4.5-10.0) K/mm3 RBC 5.01 (4.2-5.4) M/mm3 Hgb 13.4 (12.0-15.0) g/dL Hct 41.9 (37.0-47.0) % MCV 83.6 (80-100) fl MCH 26.7 (26-34) pg MCHC 32.0 (32-36) g/dl RDW 14.0 (11.5-14.5) % Plt Count 419 H (150-375) k/mm3 MPV 9.3 (7.4-10.4) fl Immature Gran % (Auto) 0.5 (0-0.5) % Neut % (Auto) 73.5 H (45.5-73.1) % Lymph % (Auto) 20.8 (18.3-44.2) % [place] % (Auto) 4.1 (2.6-8.5) % Eos % (Auto) 0.7 (0-4.4) % Baso % (Auto) 0.4 (0.2-1.2) % Lymph # (Auto) 2.31 (0.9-3.2) K/mm3 [place] # (Auto) 0.5 (0.1-0.6) K/mm3 Eos # (Auto) 0.1 (0-0.3) K/mm3 Baso # (Auto) 0.0 (0.0-0.1) K/mm3 Abs Immat Gran (auto) 0.06 H (0.00-0.031) K/mm3 Absolute Neuts (auto) 8.2 H (1.3-6.7) K/mm3 Absolute Nucleated RBC 0.000 (0.0-0.012) K/mm3 Nucleated RBC % 0.0 (0.0-0.2) % PT 13.4 (11.1-14.7) Seconds INR 1.0 APTT 30.1 (22.3-36.8) Seconds D-Dimer 0.28 (<0.48) ug/mL Sodium 133 L (137-145) mmol/L Potassium 4.0 (3.4-5.0) mmol/L Chloride 99 (98-107) mmol/L Carbon Dioxide 24 (22-30) mmol/L Anion Gap 10 (4-12) mmol/L BUN 10 (7-17) mg/dL Creatinine 0.40 L (0.7-1.0) mg/dL Estim Creat Clear Calc 237 ml/min Estimated GFR > 60 (59 - ) Glucose 342 H (65-110) mg/dL Calcium 8.9 (8.4-10.2) mg/dL Total Bilirubin 0.4 (0.2-1.3) mg/dL AST 22 (14-36) U/L ALT 17 (6-35) U/L Alkaline Phosphatase 86 (38-126) U/L Troponin I < 0.012 < 0.012 (0.000-0.034) ng/mL NT-Pro-B Natriuret Pep 28 (19.9-100) pg/mL Total Protein 7.8 (6.3-8.2) g/dL Albumin 4.2 (3.5-5.1) g/dL Lipase 62 (23-300) U/L Discharge Plan Discharge Clinical Impression: Atypical chest pain Patient Disposition: Home Condition: Stable Instructions: Antibiotic Form, Chest Pain (ED) Additional Instructions: You were seen in the emergency department due to chest pain. This is likely due to your persistent vomiting. Please use Pepcid twice daily. Please follow-up with your GI physician. Return to the ED if you develop worsening chest pain fevers or any new symptoms. Patient Language: Persian Prescriptions: New famotidine [Pepcid] 20 mg tablet 20 mg PO BID 42 Days Qty: 84 0RF ondansetron 4 mg tablet,disintegrating 4 mg PO Q8H PRN (Reason: nausea and vomiting) Qty: 30 0RF No Action ipratropium-albuterol 0.5 mg-3 mg(2.5 mg base)/3 mL solution for nebulization INHALATION baclofen 10 mg tablet irbesartan 150 mg tablet Coricidin HBP Cough and Cold 4-30 mg tablet 1 tablet PO Q6H PRN (Reason: cold symptoms) Qty: 20 0RF fluticasone propionate [Flonase Allergy Relief] 50 mcg/actuation spray,suspension 2 spray NASAL DAILY 14 Days Qty: 15.8 0RF Rx Instructions: administer into each nostril atorvastatin 10 mg tablet atenolol 25 mg tablet famotidine 40 mg tablet buspirone 7.5 mg tablet cholestyramine (with sugar) 4 gram powder in packet escitalopram oxalate 5 mg tablet losartan 50 mg tablet ondansetron HCl 8 mg tablet sennosides-docusate sodium [Senexon-S] 8.6-50 mg tablet PO hydrocortisone 2.5 % cream with perineal applicator trazodone 150 mg tablet insulin lispro [Humalog KwikPen Insulin] 100 unit/mL insulin pen SUBCUT varenicline tartrate 1 mg tablet insulin glargine [Lantus Solostar U-100 Insulin] 100 unit/mL (3 mL) insulin pen SUBCUT Trulicity 0.75 mg/0.5 mL pen injector SUBCUT (DME) Blood Glucose Test Strip See Rx Instructions .ROUTE .MEDSUPPLY Qty: 10 Rx Instructions: As directed dicyclomine 20 mg tablet 20 mg PO BID glimepiride 4 mg tablet 4 mg PO BID Rx Instructions: administer with breakfast hydrochlorothiazide 25 mg tablet 25 mg PO DAILY albuterol sulfate [Ventolin HFA] 90 mcg/actuation HFA aerosol inhaler 1 inh inhalation Q4H PRN (Reason: Shortness Of Breath) baclofen 10 mg tablet 10 mg PO TID lidocaine [RectiCare] 5 % cream 1 applic topical BID Qty: 30 0RF naproxen 500 mg tablet 500 mg PO BID PRN (Reason: pain) 7 Days Qty: 14 0RF famotidine 20 mg tablet 20 mg PO DAILY Qty: 30 0RF dicyclomine 20 mg tablet 20 mg PO TID PRN (Reason: abdominal pain) Qty: 30 0RF ondansetron 4 mg tablet,disintegrating 4 mg PO Q8H PRN (Reason: nausea and vomiting) Qty: 10 0RF Follow-up/Referrals: Paz,Nimco Bob APN [Primary Care Provider, Unknown]
[2025-05-29] MEDS: ACETAMINOPHEN 500 MG TABLET 1000 MG PO (14:13)
[2025-05-29] MEDS: KETOROLAC 15 MG/ML VIAL (*BKC) IV PUSH (14:14)
[2025-05-29 14:16] LABS: NT Pro B Type Natriuretic Pept 28 pg/mL (19.9-100)
[2025-05-29 14:58] LABS: Troponin I < 0.012 ng/mL (0.000-0.034)
== END 2025-05-29 15:35 | disposition home or self-care (01) ==
PROVIDERS: Emergency Provider Emergency Medicine; PCP Nurse Practitioner Family
DX: R07.89 Other chest pain (principal); I10 Essential (primary) hypertension; E66.01 Morbid (severe) obesity due to excess calories; Z68.44 Body mass index [BMI] 60.0-69.9, adult; E13.9 Other specified diabetes mellitus without complications; J45.909 Unspecified asthma, uncomplicated; K21.9 Gastro-esophageal reflux disease without esophagitis; F41.9 Anxiety disorder, unspecified; F17.290 Nicotine dependence, other tobacco product, uncomplicated; Z86.2 Personal history of diseases of the blood and blood-forming organs and certain disorders involving the immune mechanism; Z90.49 Acquired absence of other specified parts of digestive tract; R94.31 Abnormal electrocardiogram [ECG] [EKG]; R91.1 Solitary pulmonary nodule; Z79.4 Long term (current) use of insulin; Z79.899 Other long term (current) drug therapy; Z79.85 Long-term (current) use of injectable non-insulin antidiabetic drugs; Z79.84 Long term (current) use of oral hypoglycemic drugs
CPT/HCPCS: 36415; 71046; 71260; 80053; 83690; 83880; 84484; 85025; 85380; 85610; 85730; 93005; 96374; 99284; A9270; J1885; Q9967

== ENCOUNTER 2025-08-08 09:53 | Emergency (ER) | payer SELFPAY ==
--- OUTSIDE RECORDS SUMMARY | 2025-08-06 21:31 | XMS_ITS | Encounter Summary ---
Author Organization [facility] Healthcare Address [address] [place] [address] [address] Team Prov[address] Care Street Photographer Name Role Phone Nimco Paz NP Primary Care Provider [phone] Summer Watts MD Unavailable [phone] Reason for Visit * Reason Comments Wound Check Encounter Details Date Type Department Care Team (Late st Contact Info) Description 08/06/2025 9:31 PM DIRECTOR RADIO NEWS - 08/06/2025 10:47 PM DIRECTOR RADIO NEWS Emergency [facility] Emergency Department [address] [place] [address] Folliculitis of perineum (Primary Dx); Candidal intertrigo Discharge Disposition: Discharge to home or self care Social History Tobacco Use Types Packs/Day Years Used Date Smoking Tobacco: Former Cigarettes Q uit: 02/13/2023 Smokeless Tobacco: Never Alcohol Use Standard Drinks/Week Comments Not Currently 0 (1 standard drink = 0.6 oz pur e alcohol) [facility] Utilities Answer Date Recorded In the past 12 months has [employer], gas, oil, or water [employer] threatened to shut off services in your [...] 03/07/2025 How often do you attend chur or protestant services? Never 03/07/2025 Do you belong to any clubs o r organizations such as taoist groups, unions, fraternal or athletic groups, or [...] any time in the past 12 [facility], were you homeless or living in a fdc (including now)? Yes 03/07/2025 Personal Safety Answer Date Recorded Have you ever been in or are you currently in a harmful physical or emotional relationship or is someone making you feel afraid or unsafe? Denies 08/06/2025 Comments No Sex and Gender Information Value Date Recorded Sex Assigned at Not on file Legal Sex Female 10:29 PM DIRECTOR RADIO NEWS Gender Identity Not on file Sexual Orientation Not on file documented as of this encounter Last Filed Vital Signs Vital Sign Reading Time Taken Comments Blood Pressure 118/70 08/06/2025 10:45 PM DIRECTOR RADIO NEWS Pulse 96 08/06/2025 7:28 PM DIRECTOR RADIO NEWS Temperature 36.8 C (98.2 F) 08/06/2025 7:28 PM DIRECTOR RADIO NEWS Respiratory Rate 20 08/06/2025 7:28 PM DIRECTOR RADIO NEWS Oxygen Saturation 96% 08/06/2025 7:28 PM DIRECTOR RADIO NEWS Inhaled Oxygen Concentration - - Weight 131.1 kg (289 lb) 08/06/2025 5:32 PM DIRECTOR RADIO NEWS Height 162.6 cm (5' 4) 08/06/2025 5:32 PM DIRECTOR RADIO NEWS Body Mass Index 49.61 08/06/2025 5:32 PM DIRECTOR RADIO NEWS documented in this encounter Functional Status * Question Answer Date of Assessment Author MAP (mmHg) 86 08/06/2025 10:45 PM DIRECTOR RADIO NEWS Done Tatyana guillen RN * Question Answer Date of Assessment Author 1. Has the patient self-reported, presented with clinical signs of, or have a documented history of any of the following within the past 30 days? No 08/06/2025 5:31 PM Reina Thomas RN * Question Answer Date of Assessment Author Is the patient being treated today because it is known or suspected that they prepared, started, or tried to end their life? No 08/06/2025 5:31 PM Reina Thomas RN * Question Answer Date of Assessment Author 1. In the past month, have you wished you were or that you could go to sleep and not wake up? No 08/06/2025 5:31 PM Reina Thomas RN 2. In the past month, have you actually had any thoughts of killing yourself? No 08/06/2025 5:31 PM Reina Thomas RN 6. Have you ever done anything, started to do anything, or prepared to do anything to end your life? No 08/06/2025 5:31 PM Lorin Thomas RN * Suicide Risk Level Answer Date of Assessment Author No risk level 08/06/2025 5:31 PM David Thomas RN * Self-Injurious Risk Level Answer Date of Assessment Author No risk level 08/06/2025 5:31 PM DIRECTOR RADIO NEWS David Vargas RN * Integumentary Question Answer Date of Assessment Author Skin Color Appropriate for ethnicity 08/06/2025 7:33 PM Guerita Girard RN Integumentary (WDL) X 08/06/2025 7 :33 PM DIRECTOR RADIO NEWS Guerita Guerrier RN Skin Pertinent Negatives Intact;Warm;Dry 025 7:33 PM Guerita Girard RN Skin Location wounds/ 4 abscess around groin 08/06/2025 7:33 PM Guerita Girard RN documented as of this encounter Mental Status * Question Answer Entry Date Author Neuro (MARITA) WDL 08/06/2025 7:33 PM Guerita Castillo RN documented in this encounter Discharge Instructions * Attachments The following attachments cannot be sent through Care Everywhere. * Folliculitis (Finnish) * Louisa Skin Infection (Adult) (Finnish) documented in this encounter Medications at Time of Discharge alcohol swabs (Alcohol Wipes) pads, medicated Use as directed. 100 each 03/07/2025 atenoloL (TENORMIN) 25 mg tabletIndications :tachycardia Take 1 tablet (25 mg total) by mouth nightly atorvastatin (LIPITOR) 10 mg tabletIndications :pt unsure if she takes Take 1 tablet (10 mg total) by mouth daily 09/03/2023 baclofen (LIORESAL) 10 mg tablet Take 4 tablets (40 mg total) by mouth 2 (two) times a day 05/20/2021 blood glucose diagnostic (glucose blood) strip Use as directed up to four times a day. 100 each 1 03/07/2025 blood-glucose meter kit Use as directed. 1 kit 03/07/2025 busPIRone (BUSPAR) 7.5 mg tablet Take 2 tablets (15 mg total) by mouth daily 08/18/2021 cefadroxil (DURICEF) 500 mg capsuleIndication s:Folliculitis of perineum Take 1 capsule (500 mg total) by mouth 2 (two) times a day for 7 days Collaborating physician Denny Blackburn MD 14 capsule 08/06/2025 08/13/[address] (VOLTAREN) 50 mg EC tablet Take 2 tablets (100 mg total) by mouth 2 (two) times a day 10/07/2021 fluconazole (DIFLUCAN) 150 mg tabletIndications :Candidal intertrigo Take 1 tablet (150 mg total) by mouth daily for 5 days One p.o. daily for 5 days then 1 p.o. once weekly thereafter. Take as directed to treat fungal infection. Collaborating physician Denny Blackburn MD 7 tablet 08/06/2025 08/11/20 25 glimepiride (AMARYL) 4 mg tablet Take 1 tablet (4 mg total) by mouth daily E11.65 90 tablet 4 02/07/2025 hydroCHLOROthiazi de (HYDRODIURIL) 12.5 mg tablet Take 4 tablets (50 mg total) by mouth daily 11/25/2017 insulin regular U-500 (HumuLIN R) 500 unit/mL (3 mL) CONCENTRATED pen for injection Inject 45 Units under the skin 2 (two) times a day 5.4 mL 03/07/2025 ipratropium-albut Henry (DUO-NEB) 0.5-2.5 mg/3 mL nebulizer solution INHALE 3 ML BY NEBULIZATION ROUTE 4 TIMES DAILY 11/17/2023 irbesartan (AVAPRO) 150 mg tablet Take 1 tablet (150 mg total) by mouth daily 11/17/2023 lancets misc Use as directed up to 4 times a day. 100 each 1 03/07/2025 lidocaine viscous (XYLOCAINE) 2 % solutionIndicatio ns:Folliculitis of perineum,Candidal intertrigo Apply 5 mL (1 Application total) topically every 3 (three) hours Apply to sore area pubic region as directed. Collaborating physician Denny Blackburn MD 200 mL 1 08/06/2025 mometasone-formot henry (DULERA 100) 100-5 mcg/actuation inhaler INHALE 2 PUFFS BY MOUTH EVERY 12 HOURS. naproxen (NAPROSYN) 500 mg tablet TAKE 1 TABLET ORAL ROUTE 2 TIMES PER DAY TAKE WITH FOOD 11/15/2024 nystatin cream Apply to affected area 2 times daily. Collaborating physician Denny Blackburn MD 90 g 2 08/06/2025 08/06/20 26 ondansetron (ZOFRAN) 4 mg tablet Take 1 tablet (4 mg total) by mouth every 6 (six) hours 12 tablet 04/28/2025 pen needle, diabetic 32 gauge x needle Use as directed 3 times a day 100 each 03/07/2025 sertraline (ZOLOFT) 50 mg tabletIndications :depression Take 1 tablet (50 mg total) by mouth daily traMADoL (ULTRAM) 50 mg tablet Take 1 tablet (50 mg total) by mouth every 6 (six) hours 12 tablet 04/28/2025 traMADoL (ULTRAM) 50 mg tabletIndications :Folliculitis of perineum,Candidal intertrigo Take 1 tablet (50 mg total) by mouth every 6 (six) hours PRN pain not relieved by [id number] pain medication alone. Take with food. Collaborating physician Denny Blackburn MD 20 tablet 08/06/2025 traZODone (DESYREL) 150 mg tablet Take 1 tablet (150 mg total) by mouth nightly at bedtime 11/26/2023 documented as of this encounter Ordered Prescriptions Prescription Sig Dispense Quantity Refills Last Filled Start Date End Date traMADoL (ULTRAM) 50 mg tabletIndications :Folliculitis of perineum,Candidal intertrigo Take 1 tablet (50 mg total) by mouth every 6 (six) hours PRN pain not relieved by [id number] pain medication alone. Take with food. Collaborating physician Denny Blackburn MD 20 tablet 08/06/2025 nystatin cream Apply to affected area 2 times daily. Collaborating physician Denny Blackburn MD 90 g 2 08/06/2025 08/06/20 26 lidocaine viscous (XYLOCAINE) 2 % solutionIndicatio ns:Folliculitis of perineum,Candidal intertrigo Apply 5 mL (1 Application total) topically every 3 (three) hours Apply to sore area pubic region as directed. Collaborating physician Denny Blackburn MD 200 mL 1 08/06/2025 cefadroxil (DURICEF) 500 mg capsuleIndication s:Folliculitis of perineum Take 1 capsule (500 mg total) by mouth 2 (two) times a day for 7 days Collaborating physician Denny Blackburn MD 14 capsule 08/06/2025 08/13/20 25 fluconazole (DIFLUCAN) 150 mg tabletIndications :Candidal intertrigo Take 1 tablet (150 mg total) by mouth daily for 5 days One p.o. daily for 5 days then 1 p.o. once weekly thereafter. Take as directed to treat fungal infection. Collaborating physician Denny Blackburn MD 7 tablet 08/06/2025 08/11/20 documented in this encounter Discharge Disposition Disposition Code Departure Means Destination Comment s Discharge to home or self care documented in this encounter ED Notes * Conrado Brock PA - 08/06/2025 7:41 PM CST HPI Chief Complaint Patient presents with Wound Check 40-year-old female with history of type 2 diabetes, hypertension, hyperlipidemia, asthma, anxiety, depression, GERD complains of four painful cyst around her vaginal region that busted open and aredraining. States she 1st noticed them a few days ago. States they started popping and draining and now all of them are busted open. Complains of feeling feverish with chills. History provided by: Patient, medical records and relative Patient History: Past Medical History: Diagnosis Date Anxiety Arrhythmia irregular heart beat Asthma Cholecystitis 2012 Constipation Depression Diabetes mellitus (HCC) Diarrhea GERD (gastroesophageal reflux disease) HTN (hypertension) Type 2 diabetes mellitus (HCC) Review of Systems Review of Systems All other systems reviewed negative. All available allergies, past medical history, past surgical history, social history, and medications reviewed from the medical record, nursing notes, and with patient Physical Exam ED Triage Vitals Temp Pulse Resp BP SpO2 08/06/25 1732 08/06/25 1731 08/06/25 1731 08/06/25 17308/06/25 173 36.6 ??C (97.9 ??F) 91 16 142/83 100 % Temp src Heart Rate Source Patient Position BP Location FiO2 (%) 08/06/251731 -- -- -- -- Skin Height Height Method Weight Weight Method 08/06/25173108/06/25 17308/06/251731 -- 1.626 m (5' 4) Stated 131.1 kg (289 lb) Physical Exam Vitals and nursing note reviewed. Constitutional: Appearance: She is not ill-appearing or diaphoretic. HENT: Right Ear: External ear normal. Left Ear: External ear normal. Nose: Nose normal. Mouth/Throat: Mouth: Mucous membranes are moist. Pharynx: Oropharynx is clear. Eyes: General: No scleral icterus. Right eye: No discharge. Left eye: No discharge. Conjunctiva/sclera: Conjunctivae normal. Cardiovascular: Rate and Rhythm: Normal rate and regular rhythm. Pulses: Normal pulses. Heart sounds: Normal heart sounds. Pulmonary: Effort: Pulmonary effort is normal. Breath sounds: Normal breath sounds. Genitourinary: Comments: Erythema, excoriation, erosion, satellite lesions, and erythematous plaques with discreteborders scattered about the pubic region and intertriginous zones. Papular pustular lesions scattered about pubic region consistent with folliculitis. Entire exam chaperoned by Molly Hopson RN Skin: General: Skin is warm and dry. Neurological: General: No focal deficit present. Mental Status: She is alert and oriented to person, place, and time. Psychiatric: Thought Content: Thought content normal. Judgment: Judgment normal. MDM Heart Score Medical Decision Making 40-year-old female complains of four painful cyst around her vaginal region that busted open and are draining. Differential diagnoses, though not exhaustive, may include: Bartholin's gland abscess, hidradenitissuppurativa, intertrigo, candidiasis, trauma, folliculitis, skin abscess, epidermal inclusion cyst,[facility]'s gland cyst, infected sebaceous cyst, STI, malignancy In consideration of the above differential diagnosis, the following orders were placed while the patient was in the Emergency Department. Orders Placed This Encounter: CBC, CMP, sepsis lactate See ED course for pertinent results and imaging interpretation. The patient received the following medications / treatment/s: Saline lock. Ordered Diflucan p.o., ceftriaxone, hydrocodone, ketorolac IV, lidocaine jelly topical, Zofran ODT. Patient continued complaining of pain. Added on Dilaudid 0.5 mg IV. Discharge plan: Prescriptions for Diflucan, Duricef, viscous lidocaine, nystatin cream, triamcinolone cream, and tramadol sent to patient's preferred pharmacy. Follow-up with PCP and OBGYN. Amount and/or Complexity of Data Reviewed Labs: Decision-making details documented in ED Course. Risk Prescription drug management. ED Course as of 08/06/25 2200 Time: 08/06 2118 Value: Glucose(!): 294 Comment: Hyperglycemia By: Conrado Brock PA Time: 08/06 2118 Value: Alk phos: 111 Comment: (Reviewed) By: Conrado Brock PA Time: 08/06 2118 Value: ALT: 8 Comment: (Reviewed) By: Conrado Brock PA Time: 08/06 2118 Value: AST(!): 9 Comment: Negative for LFT abnormality By: Conrado Brock PA Time: 08/06 2119 Value: BUN: 8 Comment: (Reviewed) By: Conrado Brock PA Time: 08/06 2119 Value: Creatinine(!): 0.42 Comment: (Reviewed) By: Conrado Brcok PA Time: 08/06 2119 Value: eGFR: >90 Comment: Renal function intact By: Conrado Brock PA Time: 08/06 2119 Value: Hgb: 13.9 Comment: (Reviewed) By: Conrado Brock PA Time: 08/06 2119 Value: Hct: 40.8 Comment: Negative anemia By: Conrado Brock PA Time: 08/06 2119 Value: WBC(!): 12.54 Comment: Mild elevation WBC count with shift in differential neutrophils By: Conrado Borck PA Time: 08/06 2119 Value: Neutrophil abs(!): 8.87 Comment: (Reviewed) By: Conrado Brock PA The patient remained stable throughout their ED stay. My clinical impression was discussed with thepatient/family. Labs and radiology results were reviewed with them. I gave them the opportunity to ask questions, and addressed them as completely as possible given the information available at present. The therapeutic plan was discussed, advised to take medications as instructed, instructions weregiven and the importance of primary care follow up was stressed and encouraged. The patient/family voiced understanding of the plan, indications to return, and the need for follow up. Final diagnoses: Folliculitis of perineum Candidal intertrigo Conrado Brock PA 08/06/252199 CTOR RADIO NEWS * Reina Vargas RN - 08/06/2025 5:30 PM CST Pt to triage c/o four cysts around her vaginal area and one inside states they have all busted open c/o pain and drainage. CTOR RADIO NEWS documented in this encounter Plan of Treatment Not on file documented as of this encounter Procedures Procedure Name Priority Date/Time Associated Diagnosis Comments SEPSIS LACTATE WITH REFLEX STAT 08/06/2025 7:29 PM DIRECTOR RADIO NEWS EGFR STAT 08/06/2025 7:29 PM DIRECTOR RADIO NEWS DIFFERENTIAL AUTO STAT 08/06/2025 7:2 9 PM DIRECTOR RADIO NEWS CBC WITH AUTO DIFFERENTIAL STAT 08/06/2025 7:29 PM DIRECTOR RADIO NEWS COMPREHENSIVE METABOLIC PANEL STAT 08/06/2025 7:29 PM DIRECTOR RADIO NEWS POCT GLUCOSE DEVICE Routine 08/06/2025 5 :34 PM DIRECTOR RADIO NEWS documented in this encounter Results * eGFR (08/06/2025 7:29 PM DIRECTOR RADIO NEWS) eGFR >90 >=60 mL/min/1. 73 m2 Comment: [...] interpretive data was last reviewed 2021. Blood 08/06/2025 7:29 PM DIRECTOR RADIO NEWS 08/06/2025 7:33 PM DIRECTOR RADIO NEWS Conrado LEGGETT LAB BLOOD ORDERABLES Final R esult [facility] ([place]) 1 [facility] Department [place] [address] * (ABNORMAL) Differential, auto (08/06/2025 7:29 PM DIRECTOR RADIO NEWS) Neutrophil abs 8.87(H) 1.50 - 6.50 K/cumm Imm gran abs 0.04 0.00 - 0.10 K/cumm [facility] ([place]) Lymphocyte abs 2.93 0.80 - 3.30 K/cumm [facility] ([place]) Monocyte abs 0.49 0.20 - 0.80 K/cumm [facility] ([place]) Eosinophil abs 0.16 0.00 - 0.50 K/cumm [facility] ([place]) Basophil abs 0.05 0.00 - 0.10 K/cumm [facility] ([place]) Neutrophil pct 70.7 % [facility] ([place]) Comment: Interpretive Data Percent cell count reference ranges are not reported, since discordance with absolute values may lead to misinterpretation of CBC data. Current Interpretive Data was last revised on 2017. Imm gran pct 0.3 % [facility] ([place]) Comment: Interpretive Data Percent cell count reference ranges are not reported, since discordance with absolute values may lead to misinterpretation of CBC data. Current Interpretive Data was last revised on 2017. Lymphocyte pct 23.4 % [facility] ([place]) Comment: Interpretive Data Percent cell count reference ranges are not reported, since discordance with absolute values may lead to misinterpretation of CBC data. Current Interpretive Data was last revised on 2017. Monocyte pct 3.9 % [facility] ([place]) Comment: Interpretive Data [...] Data was last revised on 2017. Blood 08/06/2025 7:29 PM DIRECTOR RADIO NEWS 08/06/2025 7:33 PM DIRECTOR RADIO NEWS Conrado LEGGETT LAB BLOOD ORDERABLES Final R esult [facility] ([place]) 1 [facility] [place] [address] * Sepsis Lactate w/ Reflex (08/06/2025 7:29 PM DIRECTOR RADIO NEWS) Sepsis Lactate 1.4 0.7 - 2.0 mmol/L Blood 08/06/2025 7:29 PM DIRECTOR RADIO NEWS 08/06/2025 7:33 PM DIRECTOR RADIO NEWS Conrado LEGGETT LAB BLOOD ORDERABLES Final R esult [facility] ([place]) 1 [facility] Department [place] [address] * (ABNORMAL) Comprehensive metabolic panel (08/06/2025 7:29 PM DIRECTOR RADIO NEWS) Sodium 132(L) 135 - 145 mmol/L Potassium, pl 3.8 3.3 - 4.9 mmol/L [facility] ([place]) Chloride 97 97 - 110 mmol/L [facility] ([place]) CO2 25 22 - 32 mmol/L [facility] ([place]) Anion gap 10 2 - 15 mmol/L [facility] ([place]) BUN 8 6 - 25 mg/dL [facility] ([place]) Creatinine 0.42(L) 0.60 - 1.10 mg/dL [facility] ([place]) Glucose 294(H) 70 - 199 mg/dL [facility] ([place]) [...] interpretive data was last revised 2022. Calcium 9.6 8.5 - 10.3 mg/dL [facility] ([place]) Bilirubin, total 0.3 0.1 - 1.2 mg/dL [facility] ([place]) Protein, pl 7.4 6.5 - 8.5 g/dL [facility] ([place]) Albumin 4.0 3.5 - 5.0 g/dL [facility] ([place]) Alk phos 111 40 - 130 Units/L [facility] ([place]) ALT 8 7 - 45 Units/L [facility] ([place]) AST 9(L) 10 - 45 Units/L [facility] ([place]) Blood 08/06/2025 7:29 PM DIRECTOR RADIO NEWS 08/06/2025 7:33 PM DIRECTOR RADIO NEWS Conrado LEGGETT LAB BLOOD ORDERABLES Final R esult [facility] ([place]) 1 [facility] Department [place] [address] * (ABNORMAL) CBC with auto differential (08/06/2025 7:29 PM DIRECTOR RADIO NEWS) WBC 12.54(H) 3.80 - 9.90 K/cumm Hgb 13.9 11.9 - 15.5 g/dL [facility] ([place]) Hct 40.8 35.6 - 45.5 % [facility] ([place]) Plt 345 150 - 400 K/cumm [facility] ([place]) MPV 9.1 9.1 - 12.3 fL [facility] ([place]) RBC 5.03 3.90 - 5.20 M/cumm [facility] ([place]) MCV 81.1(L) 81.3 - 96.4 fL [facility] ([place]) MCH 27.6 27.1 - 33.3 pg [facility] ([place]) MCHC 34.1 32.3 - 35.7 g/dL [facility] ([place]) RDW CV 14.6 11.1 - 14.9 % [facility] ([place]) RDW SD 42.5 35.7 - 48.1 fL [facility] ([place]) NRBC abs 0.00 0.00 - 0.01 K/cumm [facility] ([place]) Blood 08/06/2025 7:29 PM DIRECTOR RADIO NEWS 08/06/2025 7:33 PM DIRECTOR RADIO NEWS Conrado LEGGETT LAB BLOOD ORDERABLES Final R esult [facility] ([place]) 1 [facility] Department [place] [address] * (ABNORMAL) POCT glucose (08/06/2025 5:34 PM DIRECTOR RADIO NEWS) Pathologist [facility] Glucose, POC 337(H) 70 - 199 mg/dL Blood 08/06/2025 5:34 PM DIRECTOR RADIO NEWS 08/06/2025 5:34 PM DIRECTOR RADIO NEWS us Notinfile Unknown LAB POCT ORDERABLES - DEVICE F inal Result [facility] ([place]) 1 [facility] Department [place] [address] documented in this encounter Visit Diagnoses Diagnosis Folliculitis of perineum- Primary Folliculitis of perineum Candidal intertrigo Candidiasis of skin and nails Candidal intertrigo Candidiasis of skin and nails documented in this encounter Administered Medications Inactive Administered Medications - up to 3 most recent administrations Medication Order MAR Action Action Date Dose Rate Site cefTRIAXone (ROCEPHIN) 2,000 mg/20 mL in sterile water (premix) 2,000 mg 2,000 mg, intravenous, at 240 mL/hr, Administer over 5 Minutes, Once, On Wed08/06/25 at 2148, For 1 dose, Indications: Skin/Soft Tissue InfectionIndications:Skin/Sof t Tissue Infection Given 08/06/2025 10:13 PM DIRECTOR RADIO NEWS 2,000 mg 240 mL/hr fluconazole (DIFLUCAN) tablet 400 mg 400 mg, oral, Once, On Wed08/06/25 at 2148, For 1 dose, Indications: Skin/Soft Tissue InfectionIndications:Skin/Sof t Tissue Infection Given 08/06/2025 10:13 PM DIRECTOR RADIO NEWS 400 mg HYDROcodone-acetaminophen (NORCO) 5-325 mg per tablet 2 tablet 2 tablet, oral, Once, On Wed08/06/25 at 1925, For 1 dose, Indications: PainIndications:Pain Given 08/06/2025 7:32 PM DIRECTOR RADIO NEWS 2 tablets HYDROmorphone (DILAUDID) injection 0.5 mg 0.5 mg, intravenous, Administer over 2 Minutes, Once, On Wed08/06/25 at 2149, For 1 dose, Indications: PainIndications:Pain Given 08/06/2025 10:13 PM DIRECTOR RADIO NEWS 0.5 mg ketorolac (TORADOL) 30 mg/mL injection 30 mg 30 mg, intravenous, Once, On Wed08/06/25 at 2148, For 1 dose, For Adult IV push, administer over 15 seconds, Indications: PainIndications:Pain Given 08/06/2025 10:13 PM DIRECTOR RADIO NEWS 30 mg lidocaine (GLYDO) 2 % jelly 200 mg 200 mg (10 mL), topical, Once, On Wed08/06/25 at 2148, For 1 dose Given 08/06/2025 10:14 PM DIRECTOR RADIO NEWS 200 mg ondansetron ODT (ZOFRAN-ODT) disintegrating tablet 4 mg 4 mg, oral, Once, On Wed08/06/25 at 1925, For 1 dose, If administering by mouth, place tablet on tongue and allow to dissolve., Indications: Nausea, VomitingIndications:Nausea,Vo miting Given 08/06/2025 7:32 PM DIRECTOR RADIO NEWS 4 mg documented in this encounter Active and Recently Administered Medications Times are shown in DIRECTOR RADIO NEWS. Scheduled Medication Order 08/04/2025 08/05/2025 08/06/2025 cefTRIAXone (ROCEPHIN) 2,000 mg/20 mL in sterile water (premix) 2,000 mg (COMPLETED) 2,000 mg, intravenous, at 240 mL/hr, Administer over 5 Minutes, Once, On Wed08/06/25 at 2148, For 1 dose, Indications: Skin/Soft Tissue Infection 2212 (Given - Provid er: Molly Hopson RN) fluconazole (DIFLUCAN) tablet 400 mg (COMPLETED) 400 mg, oral, Once, On Wed08/06/25 at 2148, For 1 dose, Indications: Skin/Soft Tissue Infection 2212 (Given - Provid er: Molly oHpson RN) HYDROcodone-acetaminophen (NORCO) 5-325 mg per tablet 2 tablet (COMPLETED) 2 tablet, oral, Once, On Wed08/06/25 at 1925, For 1 dose, Indications: Pain 1931 (Given - Provid er: Guerita Guerrier RN) HYDROmorphone (DILAUDID) injection 0.5 mg (COMPLETED) 0.5 mg, intravenous, Administer over 2 Minutes, Once, On Wed08/06/25 at 2149, For 1 dose, Indications: Pain 2212 (Given - Provid er: Molly Hopson RN) ketorolac (TORADOL) 30 mg/mL injection 30 mg (COMPLETED) 30 mg, intravenous, Once, On Wed08/06/25 at 2148, For 1 dose, For Adult IV push, administer over 15 seconds, Indications: Pain 2212 (Given - Provid er: Molly Hopson RN) lidocaine (GLYDO) 2 % jelly 200 mg (COMPLETED) 200 mg (10 mL), topical, Once, On Wed08/06/25 at 2148, For 1 dose 2214 (Given - Provid er: Molly Hopson RN) ondansetron ODT (ZOFRAN-ODT) disintegrating tablet 4 mg (COMPLETED) 4 mg, oral, Once, On Wed08/06/25 at 1925, For 1 dose, If administering by mouth, place tablet on tongue and allow to dissolve., Indications: Nausea, Vomiting 1931 (Given - Provid er: Guerita Guerrier RN) documented in this encounter Orders IV Count Last Ordered Date First Orde red Date SALINE LOCK IV 1 08/06/2025 documented in this encounter Care Teams Street Photographer Relationship Specialty Start Date End Date Nimco Paz NP [address] [place] [id number] PCP - General 07/08/20 Summer Watts MD [address] [facility] [address] [place] [id number] Consulting Physician Obstetrics and Gynecology 03/07/25 documented as of this encounter
[2025-08-08 09:58] VITALS: BP 130/73; PULSE 91; RESP 20; TEMP 36.4; O2SAT 98
--- NOTE | 2025-08-08 10:10 | ED.URI ---
HPI - URI/Sore Throat General Chief Complaint: Skin/Abscess/Foreign Body Stated Complaint: fever/nausea Time Seen by Provider: 08/08/25 10:10 Source: patient, RN notes reviewed and old records reviewed Mode of arrival: ambulatory Limitations: no limitations History of Present Illness HPI Narrative: 40 year old female presents to express care stating that she had 4 vaginal cysts pop on Wednesday and then one inside her vagina pop on Wednesday. She reports that she was seen at the ED at [facility] on Wednesday evening and was prescribed an antibiotic and also Diflucan.She states that pharmacy reported they wouldn't have medications available until today and she plans to go get them . She states that he has had fever highest 100.2F and has has nausea and feels bad so she called off. Patient has not taken any OTC Tylenol or Ibuprofen for her symptoms. Patient reports she his here for work note. MD elicited complaint: fever and other (nausea) Pertinent past history: other (diabetes) Onset (ago): day(s) (2) Consistency: constant Pain scale (0-10): 8 Able to tolerate fluids by mouth: Yes Treatments prior to arrival: none (has not yet picked up meds from pharmacy has not taken any OTC pain medications) Related Data Home Medications ?Medication ?Instructions ?Recorded ?Confirmed ?Last Taken ?Type albuterol sulfate 90 mcg/actuation 1 inh inhalation Q4H PRN Shortness 10/29/20 08/14/21 02/03/21 History aerosol inhaler (Ventolin HFA) Of Breath blood sugar diagnostic (Blood #10 ea 10/29/20 08/14/21 02/03/21 History Glucose Test strips) dicyclomine 20 mg tablet 20 mg PO BID 10/29/20 08/14/21 02/03/21 History glimepiride 4 mg tablet 4 mg PO BID 10/29/20 08/14/21 02/04/21 08:00 History hydrochlorothiazide 25 mg tablet 25 mg PO DAILY 10/29/20 08/14/21 02/04/21 08:00 History baclofen 10 mg tablet 10 mg PO TID 11/08/20 08/14/21 02/03/21 History atenolol 25 mg tablet mg 10/11/23 Unknown History atorvastatin 10 mg tablet mg 10/11/23 Unknown History buspirone 7.5 mg tablet mg 10/11/23 Unknown History cholestyramine (with sugar) 4 gram ea 10/11/23 Unknown History powder for susp in a packet dulaglutide 0.75 mg/0.5 mL mg subcut 10/11/23 Unknown History subcutaneous pen injector (Trulicity) escitalopram oxalate 5 mg tablet mg 10/11/23 Unknown History famotidine 40 mg tablet mg 10/11/23 Unknown History insulin glargine 100 unit/mL (3 unit subcut 10/11/23 Unknown History mL) subcutaneous pen (Lantus Solostar U-100 Insulin) insulin lispro 100 unit/mL subcut 10/11/23 Unknown History subcutaneous pen (Humalog KwikPen (U-100) Insulin) losartan 50 mg tablet mg 10/11/23 Unknown History varenicline tartrate 1 mg tablet mg 10/11/23 Unknown History baclofen 10 mg tablet mg 05/02/24 Unknown History ipratropium 0.5 mg-albuterol 3 mg ml inhalation 05/02/24 Unknown History (2.5 mg base)/3 mL nebulization soln irbesartan 150 mg tablet mg 05/02/24 Unknown History Allergies Allergy/AdvReac Type Severity Reaction Status Date / Time metformin Allergy Mild Diarrhea Verified 08/08/25 10:05 venom-wasp Allergy Mild unknown Verified 08/08/25 10:05 terbutaline Allergy Unknown Hyperactive Verified 08/08/25 10:05 haloperidol (From Haldol) Allergy Difficulty Verified 08/08/25 10:05 Breathing Review of Systems Review of Systems: CONSTITUTIONAL: Reports fever,no chills, or sweats. EYES: Denies visual changes, redness, or discharge. ENT: Denies rhinorrhea, congestion, sore throat, or otalgia. CARDIOVASCULAR: Denies chest pain, palpitations, or edema. RESPIRATORY: Denies cough or dyspnea. GASTROINTESTINAL: Denies acute abdominal pain,states some nausea,no vomiting, or diarrhea. GENITOURINARY: Denies dysuria or hematuria. reports vaginal discomfort related to cysts in vaginal area rupturing and one inside vagina also rupturing, seen in ED Wednesday SKIN: Denies rash or itching. MUSCULOSKELETAL: Denies back pain, joint pain, or myalgia. NEUROLOGIC: Denies headache, numbness, or weakness. PSYCHIATRIC: reports history of anxiety or depression. All systems reviewed & are unremarkable except as noted in HPI and below PMFSH Past Medical History Medical History Morbid obesity Tobacco abuse Diabetes 1.5, managed as type 2 Nausea Blood in stool Rectal pain Diarrhea Gallbladder & bile duct stone with obstruction Gallstones Infection of caesarean section or perineal wound High blood pressure Blood clot in vein Asthma Anxiety Anemia GERD (gastroesophageal reflux disease) Surgical History Surgical History History of cholecystectomy Previous section x2 Family History Family History Other Family history of renal disease Social History Social History Smoking packs per day: 1.5 Smoking cigarettes per day: 30.0 Years smoked: 5 Smoking pack-years: 7.50 Smoking status: Current every day smoker Tobacco type: cigarettes and e-cigarettes/vaping Additional smoking assessment comments: former cigarette smoker presently vapes Alcohol intake: never Substance use: never Substance use type: does not use Living arrangements: with family Occupation/Education: occupation Gender identity (if verbalized by the patient): Female Spiritual care concerns: No Comments At time of signature, agree with nursing past medical, surgical, social and family history. There is no relevant family history pertinent to the presenting complaint Exam Narrative: GENERAL: Well-appearing, well-nourished,morbidly obese, and in no acute distress. HEAD: Normocephalic, atraumatic. EYES: PERRLA and EOMI. ENT: Nares clear, no rhinorrhea or epistaxis. Mucous membranes moist.TM's normal throat pink with no swelling or exudates NECK: Supple. no lymphadenopathy CHEST: Clear to auscultation. No respiratory distress. SAO2 98% on room air HEART: Regular rate and rhythm. No murmur heard. Normal peripheral pulses. ABDOMEN: Soft, nontender, nondistended, normal active bowel sounds.reports vaginal discomfort from cysts rupturing denies any acute drainage or bleeding has not yet started medication that were ordered by ED on Wednesday has not taken any OTC medications for discomfort. EXTREMITIES: Normal range of motion. trace pedal edema SKIN: Warm, dry, no rash. NEURO: No focal deficits. Alert and oriented x3. Course Course Level of Care: Express Care Visit Vital Signs Vital signs: Vital Signs Temperature 36.4 C 08/08/25 09:58 Pulse Rate 91 08/08/25 09:58 Respiratory Rate 20 08/08/25 09:58 Blood Pressure 130/73 08/08/25 09:58 Pulse Oximetry 98 08/08/25 09:58 Oxygen Delivery Room Air 08/08/25 09:58 Temperature 36.4 C 08/08/25 09:58 Pulse Rate 91 08/08/25 09:58 Respiratory Rate 20 08/08/25 09:58 Blood Pressure 130/73 08/08/25 09:58 Pulse Oximetry 98 08/08/25 09:58 Oxygen Delivery Room Air 08/08/25 09:58 reviewed MDM MDM Narrative Medical decision making narrative: Seen in ED on Wednesday evening for 4 vaginal cysts and one on inside of vagina rupturing and was placed on antibiotic and Diflucan which patient has not yet started 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 Here to clinic today for complaints of fever,some nausea and doesn't feel well reports here for work note since she called off work. Patient encouraged to get medications from pharmacy and start as prescribed, to take OTC medications for any fever or pain. Anticipatory guidance and reasons to return to ED reviewed with patient and to follow with MUSICIAN INSTRUMENTAL Or PCP as instructed by ED. Differential Diagnosis Differential Diagnosis: vaginal discomfort, fevers, pain, nausea without emesis, Critical Care Time Critical Care Time Critical Care Time: No Discharge Plan Discharge Clinical Impression: Abscess of vagina, Fever Patient Disposition: Home Condition: Stable Instructions: Antibiotic Form Additional Instructions: Patient to take all of the prescription of antibiotic and the Diflucan as prescribed at emergency room Patient to take Tylenol and/ or Ibuprofen for any fevers or pain Patient to follow up with her MUSICIAN INSTRUMENT[facility] If your symptoms persist, change or worsen significantly before you can contact your personal physician then please, without delay, go to the emergency department for further evaluation. Follow-up with PCP in 7-10 days or sooner if needed Follow up with PCP soon in regards to your blood pressure which is elevated above threshold for referral. Blood pressure above 120/80 may indicate pre-hypertension.130/73 monitor blood sugar closely while taking the antibiotic and having fevers Patient Language: Nigerien Prescriptions: No Action ipratropium-albuterol 0.5 mg-3 mg(2.5 mg base)/3 mL solution for nebulization INHALATION baclofen 10 mg tablet irbesartan 150 mg tablet fluticasone propionate [Flonase Allergy Relief] 50 mcg/actuation spray,suspension 2 spray NASAL DAILY 14 Days Qty: 15.8 0RF Rx Instructions: administer into each nostril atorvastatin 10 mg tablet atenolol 25 mg tablet famotidine 40 mg tablet buspirone 7.5 mg tablet cholestyramine (with sugar) 4 gram powder in packet escitalopram oxalate 5 mg tablet losartan 50 mg tablet insulin lispro [Humalog KwikPen Insulin] 100 unit/mL insulin pen SUBCUT varenicline tartrate 1 mg tablet insulin glargine [Lantus Solostar U-100 Insulin] 100 unit/mL (3 mL) insulin pen SUBCUT Trulicity 0.75 mg/0.5 mL pen injector SUBCUT (DME) Blood Glucose Test Strip See Rx Instructions .ROUTE .MEDSUPPLY Qty: 10 Rx Instructions: As directed dicyclomine 20 mg tablet 20 mg PO BID glimepiride 4 mg tablet 4 mg PO BID Rx Instructions: administer with breakfast hydrochlorothiazide 25 mg tablet 25 mg PO DAILY albuterol sulfate [Ventolin HFA] 90 mcg/actuation HFA aerosol inhaler 1 inh inhalation Q4H PRN (Reason: Shortness Of Breath) baclofen 10 mg tablet 10 mg PO TID lidocaine [RectiCare] 5 % cream 1 applic topical BID Qty: 30 0RF naproxen 500 mg tablet 500 mg PO BID PRN (Reason: pain) 7 Days Qty: 14 0RF famotidine 20 mg tablet 20 mg PO DAILY Qty: 30 0RF dicyclomine 20 mg tablet 20 mg PO TID PRN (Reason: abdominal pain) Qty: 30 0RF famotidine [Pepcid] 20 mg tablet 20 mg PO BID 42 Days Qty: 84 0RF Follow-up/Referrals: Brandi,Nimco Bob APN [Primary Care Provider, Unknown] Stand Alone Forms: Work/School Release IP Time of Disposition: 10:27 Quality Mariaa Coma Scale Eyes: Open Verbal: Oriented and Alert Motor: Follows Commands Mariaa Coma Total Score: 15
--- OUTSIDE RECORDS SUMMARY | 2025-08-08 10:56 | XMS_ITS | Encounter Summary ---
Author Organization [facility] Address [address] [place] [id number] Phone Care Team Providers Care Senior Marketing Manager Name Role Phone Leslie Avila APRN, CNP Unavailable Nimco Paz APRN, CNP Primary Care Provider [phone] Reason for Visit * Reason Comments Medication Refill Encounter Details Date Type Department Care Team (Late st Contact Info) Description 01/08/2024 Refill [facility] - Pulmonology & Sleep Medicine [facility] [address] [place] [id number] Leslie Avila APRN, CNP [address] [address] Medication Refill Social History Tobacco Use Types [...] AM CDT Medication(s) refilled and signed per [facility] Chronic Medication Refill Standing Order for Pediatricand [...] on filedocumented in this encounter Care Teams Senior Marketing Manager Relationship Specialty Start Date End Date Nimco Paz APRN, CNP [address] [address] PCP - General Family Medicine 12/14/23 Leslie Avila APRN, CNP #[address] [address] Nurse Practitioner Advanced Practice Nurse 04/30/23 documented as of this encounter
--- OUTSIDE RECORDS SUMMARY | 2025-08-08 10:56 | XMS_ITS | Clinical Summary ---
Author Organization [facility] Address [address] [place] [address] Phone Care Team Providers Care Vacuum Frame Operator Name Role Phone Leslie Avila APRN, SHAINA Unavailable Nimco Paz APRN, CNP Primary Care Provider [phone] Allergies Active Allergy Reactions Criticality Noted Date [...] Virus (HCV) Screening 1986 TdaP Immunization 1986 Varicella Immunization (1 of 2 - 13+ 2-dose series) 1999 Hepatitis B Immunization (2 of 3 - 3-dose series) 06/22/2000 05/25/2000 Pneumococcal Immunization Combined (1 of 2 - PCV) 2005 Pap Smear 2007 Human Papillomavirus (HPV) Immunization (1 - Risk 3-dose SCDM series) 2013 Cervical Cancer Screening (CCS) 01/19/2016 HPV/Cotest 01/19/2016 Influenza Immunization (#1) 05/07/202506/07, 06/11/2021, 06/06/2020, Additional history exists SARS-COV-2 Immunization (3 - season) 2025 05/29/2021, 04/23/2021 Respiratory Syncytial Virus (RSV) Immunization (Adult) (1 - 1-dose 75+ series) 2061 DTaP/Tdap/Td Immunization Discontinued 05/25/2000 Meningococcal Immunization (ACWY) Aged Out No longer eligible based on patient's age to complete this topic Rotavirus Immunization Aged Out No lo nger eligible based on patient's age to complete this topic Insurance MEDICAID [place] Care Teams Vacuum Frame Operator Relationship Specialty Start Date End Date Nimco Paz APRN, COLLABORATING SUPERVISING PHYSICIAN #[address] [address] PCP - General Family Medicine 12/14/23 Leslie Avila APRN, COLLABORATING SUPERVISING PHYSICIAN #[address] [address] Nurse Practitioner Advanced Practice Nurse 04/30/23
--- OUTSIDE RECORDS SUMMARY | 2025-08-08 10:56 | XMS_ITS | Clinical Summary ---
Author Organization [facility] Address [address] [place] [address] Care Team Providers Care Insert Cutter Name Role Phone Nimco Paz NP Primary Care Provider Summer Watts MD Unavailable [phone] Allergies Active Allergy Reactions Criticality Noted Date Comments Haloperidol Vomiting Low 09/18/2021 Metformin Anaphylaxis High 09/18/2021 Terbutaline Venom-Wasp Venom-Yellow Jacket Medications hydroCHLOROthiaz mitra (HYDRODIURIL) 12.5 mg tablet Take 4 tablets (50 mg total) by mouth daily 11/26/19 18 Active dicyclomine (BENTYL) 20 mg tabletIndication s:Abdominal Pain with Cramps Take 1 tablet (20 mg total) by mouth 2 (two) times a day 30 tablet 07/08/20 20 Active Additional Information Patient taking differently: 40 mgoral 2 times daily, Indications: Abdominal Pain with Cramps, Reported on 03/07/2025 baclofen (LIORESAL) 10 mg tablet Take 4 tablets (40 mg total) by mouth 2 (two) times a day 05/20/20 21 Active atenoloL (TENORMIN) 25 mg tabletIndication s:tachycardia Take 1 tablet (25 mg total) by mouth nightly Active busPIRone (BUSPAR) 7.5 mg tablet Take 2 tablets (15 mg total) by mouth daily 08/18/[address] (VOLTAREN) 50 mg EC tablet Take 2 tablets (100 mg total) by mouth 2 (two) times a day 10/07/19 22 Active atorvastatin (LIPITOR) 10 mg tabletIndication s:pt unsure if she takes Take 1 tablet (10 mg total) by mouth daily 09/03/20 23 Active ipratropium-albu teroL (DUO-NEB) 0.5-2.5 mg/3 mL nebulizer solution INHALE 3 ML BY NEBULIZATION ROUTE 4 TIMES DAILY 11/17/19 24 Active irbesartan (AVAPRO) 150 mg tablet Take 1 tablet (150 mg total) by mouth daily 11/17/19 24 Active traZODone (DESYREL) 150 mg tablet Take 1 tablet (150 mg total) by mouth nightly at bedtime 11/26/19 24 Active mometasone-formo terol (DULERA 100) 100-5 mcg/actuation inhaler INHALE 2 PUFFS BY MOUTH EVERY 12 HOURS. Active famotidine (PEPCID) 40 mg tablet Take 1 tablet (40 mg total) by mouth daily 90 tablet 05/10/20 24 Active naproxen (NAPROSYN) 500 mg tablet TAKE 1 TABLET ORAL ROUTE 2 TIMES PER DAY TAKE WITH FOOD 11/16/19 25 Active glimepiride (AMARYL) 4 mg tablet Take 1 tablet (4 mg total) by mouth daily E11.65 90 tablet 4 02/08/20 25 Active Additional Information Patient taking differently: 8 mgoral Daily, E11.65,Indications: type 2 diabetes mellitus, Informant: Self, Reported on 03/07/2025 sertraline (ZOLOFT) 50 mg tabletIndication s:depression Take 1 tablet (50 mg total) by mouth daily Active insulin regular U-500 (HumuLIN R) 500 unit/mL (3 mL) CONCENTRATED pen for injection Inject 45 Units under the skin 2 (two) times a day 5.4 mL 03/07/20 25 Active pen needle, diabetic 32 gauge x 5/32 needle Use as directed 3 times a day 100 each 03/07/20 25 Active blood-glucose meter kit Use as directed. 1 kit 03/07/20 25 Active blood glucose diagnostic (glucose blood) strip Use as directed up to four times a day. 100 each 1 03/07/20 25 Active lancets misc Use as directed up to 4 times a day. 100 each 1 03/07/20 25 Active alcohol swabs (Alcohol Wipes) pads, medicated Use as directed. 100 each 03/07/20 25 Active metoclopramide (REGLAN) 10 mg tablet Take 1 tablet (10 mg total) by mouth every 6 (six) hours for 5 days 20 tablet 04/25/20 25 Active traMADoL (ULTRAM) 50 mg tablet Take 1 tablet (50 mg total) by mouth every 6 (six) hours 12 tablet 04/28/20 25 Active ondansetron (ZOFRAN) 4 mg tablet Take 1 tablet (4 mg total) by mouth every 6 (six) hours 12 tablet 04/28/20 25 Active fluconazole (DIFLUCAN) 150 mg tabletIndication s:Candidal intertrigo Take 1 tablet (150 mg total) by mouth daily for 5 days One p.o. daily for 5 days then 1 p.o. once weekly thereafter. Take as directed to treat fungal infection. Collaborating physician Denny Blackburn MD 7 tablet 08/06/20 25 025 Active cefadroxil (DURICEF) 500 mg capsuleIndicatio ns:Folliculitis of perineum Take 1 capsule (500 mg total) by mouth 2 (two) times a day for 7 days Collaborating physician Denny Blackburn MD 14 capsule 08/06/20 25 025 Active lidocaine viscous (XYLOCAINE) 2 % solutionIndicati ons:Folliculitis of perineum,Louisa l intertrigo Apply 5 mL (1 Application total) topically every 3 (three) hours Apply to sore area pubic region as directed. Collaborating physician Denny lBackburn MD 200 mL 1 08/06/20 25 Active nystatin cream Apply to affected area 2 times daily. Collaborating physician Denny Blackburn MD 90 g 2 08/06/20 25 026 Active traMADoL (ULTRAM) 50 mg tabletIndication s:Folliculitis of perineum,Louisa l intertrigo Take 1 tablet (50 mg total) by mouth every 6 (six) hours PRN pain not relieved by [id number] pain medication alone. Take with food. Collaborating physician Denny Blackburn MD 20 tablet 08/06/20 25 Active Active Problems Problem Noted Date Diagnosed Date Folliculitis of perineum 08/06/2025 Candidal intertrigo 08/06/2025 Cellulitis of groin 03/06/2025 Type 2 diabetes [...] afford it without insurance. Forms provided for [employer] patient assistance program. Will try to get [...] her bowel issues flare. Ambulatory referral to [facility] weight management clinic She has consider bariatric [...] (10/15/2021): Added automatically from request for surgery [id number] Encounters Date Type Department Care Team Description 08/06/2025 9:31 PM SEGMENTAL WALL INSTALLER - 08/06/2025 10:47 PM SEGMENTAL WALL INSTALLER Emergency [facility] Emergency Department [address] [place] [address] Folliculitis of perineum (Primary Dx); Candidal intertrigo Discharge Disposition: Discharge to home or self care from Last 3 Months Surgical History Surgery Date Site/Laterality Comments CHOLECYSTECTOMY 09/06/2011 - 09/05/2012 SECTION 2 c-sections HEMORRHOID SURGERY 11/06/2021 COLONOSCOPY 09/06/2017 - 09/05/2018 COLONOSCOPY 09/06/2020 - 09/05/2021 Medical History Medical History Date Comments Asthma Cholecystitis 2011 HTN (hypertension) Anxiety Diabetes mellitus Type 2 diabetes mellitus Depression Arrhythmia irregular [...] drink = 0.6 oz pur e alcohol) [facility] Utilities Answer Date Recorded In the past 12 months has [employer], gas, oil, or water [employer] threatened to shut off services in your [...] any clubs o r organizations such as hindu groups, unions, fraternal or athletic groups, or [...] any time in the past 12 m [facility], were you homeless or living in a longterm (including now)? Yes 03/07/2025 Personal Safety Answer Date Recorded Have you ever been in or are you currently in a harmful physical or emotional relationship or is someone making you feel afraid or unsafe? Denies 08/06/2025 Comments No Sex and Gender Information Value Date Recorded Sex Assigned at Not on file Legal Sex Female 10:29 PM SEGMENTAL WALL INSTALLER Gender Identity Not on file Sexual Orientation Not on file Last Filed Vital Signs Vital Sign Reading Time Taken Comments Blood Pressure 118/70 08/06/2025 10:45 PM SEGMENTAL WALL INSTALLER Pulse 96 08/06/2025 7:28 PM SEGMENTAL WALL INSTALLER Temperature 36.8 C (98.2 F) 08/06/2025 7:28 PM SEGMENTAL WALL INSTALLER Respiratory Rate 20 08/06/2025 7:28 PM SEGMENTAL WALL INSTALLER Oxygen Saturation 96% 08/06/2025 7:28 PM SEGMENTAL WALL INSTALLER Inhaled Oxygen Concentration - - Weight 131.1 kg (289 lb) 08/06/2025 5:32 PM SEGMENTAL WALL INSTALLER Height 162.6 cm (5' 4) 08/06/2025 5:32 PM SEGMENTAL WALL INSTALLER Body Mass Index 49.61 08/06/2025 5:32 PM SEGMENTAL WALL INSTALLER Plan of Treatment Health Maintenance Due Date [...] Additional history exists Hemoglobin A1C 08/09/2025 02/07/2025, 03/06, 12/02/2023 eGFR 08/06/2026 08/06/2025, 0811/2024, 04/25/2025, Additional history exists Hepatitis B Screening Completed 05/25/2000 Covid-19 Vaccine Discontinued 04/23/2021 Procedures Procedure Name Priority Date/Time Associated Diagnosis Comments EGFR STAT 08/06/2025 7:29 PM SEGMENTAL WALL INSTALLER DIFFERENTIAL AUTO STAT 08/06/2025 7:2 9 PM SEGMENTAL WALL INSTALLER SEPSIS LACTATE WITH REFLEX STAT 08/06/2025 7:29 PM SEGMENTAL WALL INSTALLER COMPREHENSIVE METABOLIC PANEL STAT 08/06/2025 7:29 PM SEGMENTAL WALL INSTALLER CBC WITH AUTO DIFFERENTIAL STAT 08/06/2025 7:29 PM SEGMENTAL WALL INSTALLER POCT GLUCOSE DEVICE Routine 08/06/2025 5 :34 PM SEGMENTAL WALL INSTALLER POCT HEMOGLOBIN A1C Routine 02/07/2025 3 :57 PM CDT Type 2 diabetes mellitus with hyperglycemia, with long-term current use of insulin (HCC) LIPID PANEL Routine 12/02/2023 11:03 AM CDT Type 2 diabetes mellitus with hyperglycemia, unspecified whether snf insulin use (HCC) ALBUMIN CREATININE RATIO, URINE Routine 12/02/2023 11:03 AM CDT Type 2 diabetes mellitus with hyperglycemia, unspecified whether snf insulin use (HCC) DIABETIC EYE EXAM Routine 10/09/2022 from Last 3 Months or Most Recently Relevant to Health Maintenance Results * Sepsis Lactate w/ Reflex (08/06/2025 7:29 PM SEGMENTAL WALL INSTALLER) Pathologist [facility] Sepsis Lactate 1.4 0.7 - 2.0 mmol/L Blood 08/06/2025 7:29 PM SEGMENTAL WALL INSTALLER 08/06/2025 7:33 PM SEGMENTAL WALL INSTALLER us Conrado LEGGETT LAB BLOOD ORDERABLES Final R esult [facility] [address] [facility] Department [place] [address] * eGFR (08/06/2025 7:29 PM SEGMENTAL WALL INSTALLER) eGFR >90 >=60 mL/min/1. 73 m2 Comment: [...] last reviewed 2021. Blood 08/06/2025 7:29 PM SEGMENTAL WALL INSTALLER 08/06/2025 7:33 PM SEGMENTAL WALL INSTALLER us Conrado LEGGETT LAB BLOOD ORDERABLES Final R esult [facility] ([facility]) [address] [facility] Department [place] [address] * (ABNORMAL) Differential, auto (08/06/2025 7:29 PM SEGMENTAL WALL INSTALLER) Neutrophil abs 8.87(H) 1.50 - 6.50 K/cumm [...] Neutrophil pct 70.7 % [facility] ([facility]) Comment: Interpretive Data Percent cell count reference [...] revised on 2017. Monocyte pct 3.9 % [facility] ([facility]) Comment: Interpretive Data Percent cell [...] revised on 2017. Basophil pct 0.4 % [facility] ([facility]) Comment: Interpretive Data Percent cell count reference ranges are not reported, since discordance with absolute values may lead to misinterpretation of CBC data. Current Interpretive Data was last revised on 2017. Blood 08/06/2025 7:29 PM SEGMENTAL WALL INSTALLER 08/06/2025 7:33 PM SEGMENTAL WALL INSTALLER us Conrado LEGGETT LAB BLOOD ORDERABLES Final R esult [facility] ([facility]) [address] [facility] Department [place] [address] * (ABNORMAL) CBC with auto differential (08/06/2025 7:29 PM SEGMENTAL WALL INSTALLER) WBC 12.54(H) 3.80 - 9.90 K/cumm Hgb 13.9 11.9 - 15.5 g/dL [facility] ([facility]) Hct 40.8 35.6 - 45.5 % [facility] ([facility]) Plt 345 150 - 400 K/cumm [facility] ([facility]) MPV 9.1 9.1 - 12.3 fL [facility] ([facility]) RBC 5.03 3.90 - 5.20 M/cumm [facility] ([facility]) MCV 81.1(L) 81.3 - 96.4 fL [facility] ([facility]) MCH 27.6 27.1 - 33.3 pg [facility] ([facility]) MCHC 34.1 32.3 - 35.7 g/dL [facility] ([facility]) RDW CV 14.6 11.1 - 14.9 % [facility] ([facility]) RDW SD 42.5 35.7 - 48.1 fL [facility] ([facility]) NRBC abs 0.00 0.00 - 0.01 K/cumm [facility] ([facility]) Blood 08/06/2025 7:29 PM SEGMENTAL WALL INSTALLER 08/06/2025 7:33 PM SEGMENTAL WALL INSTALLER Conrado LEGGETT LAB BLOOD ORDERABLES Final R esult [facility] ([place]) [address] [facility] Department [place] [address] * (ABNORMAL) Comprehensive metabolic panel (08/06/2025 7:29 PM SEGMENTAL WALL INSTALLER) Sodium 132(L) 135 - 145 mmol/L Potassium, pl 3.8 3.3 - 4.9 mmol/L [facility] ([facility]) Chloride 97 97 - 110 mmol/L [facility] ([facility]) CO2 25 22 - 32 mmol/L [facility] ([facility]) Anion gap 10 2 - 15 mmol/L [facility] ([facility]) BUN 8 6 - 25 mg/dL [facility] ([facility]) Creatinine 0.42(L) 0.60 - 1.10 mg/dL [facility] ([facility]) Glucose 294(H) 70 - 199 mg/dL [facility] ([facility]) Comment: Interpretive Data Fasting [...] [facility] ([facility]) Blood 08/06/2025 7:29 PM SEGMENTAL WALL INSTALLER 08/06/2025 7:33 PM SEGMENTAL WALL INSTALLER us Conrado LEGGETT LAB BLOOD ORDERABLES Final R esult [facility] ([place]) [address] [place] [address] * (ABNORMAL) POCT glucose (08/06/2025 5:34 PM SEGMENTAL WALL INSTALLER) [facility] Signature Glucose, POC 337(H) 70 - 199 mg/dL Blood 08/06/2025 5:34 PM SEGMENTAL WALL INSTALLER 08/06/2025 5:34 PM SEGMENTAL WALL INSTALLER us Notinfile Unknown LAB POCT ORDERABLES - DEVICE F inal Result [facility] ([place]) [address] [facility] Department of [address] [place] [address] * (ABNORMAL) POCT hemoglobin A1c (02/07/2025 3:57 PM CDT) Hemoglobin A1C, POC 11.3(A) 4.0 - 5.6 % Blood 02/07/2025 3:57 PM CDT April Byrd NP POINT OF CARE TEST ORDERABLES F inal Result * Albumin Creatinine Ratio, Urine (12/02/2023 11:03 AM CDT) Albumin Ur <12.0 mg/L Comment: Interpretive Data No reference range established. Current interpretive data was last revised 2019. Testing performed by: [facility], [address] [place] [address]., [id number] Creatinine Ur 105.0 mg/dL [facility] ([facility]) Comment: Interpretive Data No reference range established. Current interpretive data was last revised 2019. Testing performed by: [facility], [address] [place] [address]., [id number] Albumin Creatinine Ratio, Ur <11 1 - 29 mg/g [facility] ([facility]UW[facility]) Comment:Testing performed by : [facility], [address] [place] [address]., [id number] Urine 12/02/2023 11:0 3 AM CDT 12/02/2023 3:36 PM CDT April Byrd NP LAB URINE ORDERABLES Final Resu lt [facility] ([facility]) [address] [facility] Department [place] [address] * (ABNORMAL) Lipid panel (12/02/2023 11:03 AM [...] BLOOD ORDERABLES Final Resu lt [facility]AX BETTY) [address] [facility] [place] [address] * Diabetic Eye Exam (10/09/2022) Historical Provider HEALTH MAINTENANCE Final Result from Last 3 Months or Most Recently Relevant to Health Maintenance Insurance [facility] Advance Directives For more information, please contact: [phone] * Full Code (Latest Code Status on File) Date Activated Date Inactivated Comments 03/07/2025 12:19 AM 03/07/2025 9:39 PM * Full Code Date Activated Date Inactivated Comments 11/15/2023 7:17 AM 11/15/2023 1:35 PM * Full Code Date Activated Date Inactivated Comments 11/15/2023 7:17 AM 11/15/2023 7:17 AM Care Teams Insert Cutter Relationship Specialty Start Date End Date Nimco Paz NP [address] [place] [place] [id number] PCP - General 07/08/20 Summer Watts MD [address] [place] [address] [place] [id number] Consulting Physician Obstetrics and Gynecology 03/07/25
--- OUTSIDE RECORDS SUMMARY | 2025-08-08 10:56 | XMS_ITS | Encounter Summary ---
Author Organization [facility] Address [address] [place] [id number] Phone Care Team Providers Care Securities Clerk Name Role Phone Nimco Paz APRN, CNP Primary Care Provider [phone] Melania Woodard MD Primary Care Provide r Leslie Avila APRN, CNP Unavailable Nimco Paz APRN, CNP Primary Care Provider [phone] Reason for Visit * Reason Comments Medication Refill Encounter Details Date Type Department Care Team (Late st Contact Info) Description 05/17/2023 Refill [facility] - Pulmonology & Sleep Medicine [facility] [address] [place] [id number] Leslie Avila APRN, CNP [address] [address] Medication Refill Social History Tobacco Use Types [...] CNP [facility] Jamil Bryan Showing future appointments within next 90 days and meeting all other requirements documented in this encounter Plan of Treatment Not on file documented as of this encounter Visit Diagnoses Not on filedocumented in this encounter Care Teams Securities Clerk Relationship Specialty Start Date End Date Nimco Paz APRN, CNP PCP - General Family Medicine 06/19/20 09/06/23 Melania Woodard MD [address] [place] [address] [place] [address] PCP - General Family Medicine 09/07/23 12/13/23 Nimco Paz APRN, CNP PCP - General Family Medicine 12/14/23 Leslie Avila, ANDREA, [employer]ER #[address] [address] Nurse Practitioner Advanced Practice Nurse 04/30/23 documented as of this encounter
== END 2025-08-08 10:33 | disposition home or self-care (01) ==
PROVIDERS: Emergency Provider Registered Nurse; PCP Nurse Practitioner Family
DX: N76.0 Acute vaginitis (principal); R50.9 Fever, unspecified; F17.290 Nicotine dependence, other tobacco product, uncomplicated; E13.9 Other specified diabetes mellitus without complications; Z79.4 Long term (current) use of insulin; Z79.85 Long-term (current) use of injectable non-insulin antidiabetic drugs; Z79.84 Long term (current) use of oral hypoglycemic drugs; I10 Essential (primary) hypertension; K21.9 Gastro-esophageal reflux disease without esophagitis; J45.909 Unspecified asthma, uncomplicated; F41.9 Anxiety disorder, unspecified; E66.01 Morbid (severe) obesity due to excess calories; Z68.42 Body mass index [BMI] 45.0-49.9, adult; Z86.2 Personal history of diseases of the blood and blood-forming organs and certain disorders involving the immune mechanism
CPT/HCPCS: 99211; G0463